=== PATIENT | female | born 1930 | race Caucasian/White ===

== ENCOUNTER → 2016-04-22 | Outpatient (CLI) | payer MEDICARE ==
[2016-04-22 09:42] LABS: Blood Urea Nitrogen 28 mg/dL (7-17); Non-African American GFR(MDRD) 52 (>60 ml/min/1.73 sqM)
--- NOTE | 2016-04-22 12:46 | CT ---
EXAMINATION TYPE: CT ChestAbdPelvis w con DATE OF EXAM: 04/22/2016 10:58 AM COMPARISON: CT chest February 14, 2016. CT cap January 16, 2015. HISTORY: Breast and Lung Cancer. History of left-sided mastectomy and COPD. CT DLP: 1255.50 mGycm. Automated Exposure Control for Dose Reduction was Utilized. CONTRAST: CT scan of the thorax, abdomen and pelvis is performed with oral and with IV Contrast, patient inject ed with 100 ml mL of Omnipaque 300. FINDINGS: LUNGS: There is persistent moderate size left pleural effusion. There is associated left lower lung a telectasis. There is ill-defined left hilar mass with mediastinal invasion encasing left pulmonary ar nahid as well as left lung bronchus similar to prior exam, difficult to accurately measure due to obst ructive atelectasis of the left lower lobe, measurements estimated roughly 6.0 x 3.3 cm on axial imag e 27. Scarring anteriorly in left upper lobe remains present. Additional linear scarring medially lef t upper lobe is seen. There is persistent right infrahilar scarring with mild bronchiectatic change a nd atelectatic change extending anteriorly and medially slightly less prominent versus prior. No new parenchymal nodule or mass is present. No pleural effusion is noted. MEDIASTINUM: There are no greater than 1 cm mediastinal lymph nodes. Slightly more prominent right hi lar lymph nodes and masslike consolidation is felt present near axial images 26 through 28. No cardio megaly or pericardial effusion is seen. Coronary artery calcification is redemonstrated. Moderate to large size fixed hiatal hernia is redemonstrated. OTHER: Surgical changes from left-sided mastectomy are redemonstrated. There is 1.7 x 1.5 cm mass in the right lateral slightly lower breast on axial image 37 redemonstrated felt stable. There is second medial right breast lesion measuring 2.5 x 1.7 cm on axial image 32 increased in size from prior. Th ere is 9 mm nodule inferomedially right breast more prominent versus prior study on axial image 63. LIVER/GB: Cholecystectomy clips are redemonstrated. PANCREAS: No significant abnormality is seen. SPLEEN: No significant abnormality is seen. ADRENALS: There are stable hyperdense thickening to both adrenal glands nonspecific could reflect delaney plasm redemonstrated all stable. KIDNEYS: No significant abnormality is seen. BOWEL: The oral contrast does not reach colonic level making evaluation slightly suboptimal. There is no suspicious small or large bowel dilatation. There are diverticula seen in redundant sigmoid colon . There is moderate wall thickening involving the proximal right transverse colon and the entire righ t colon. Colitis versus neoplasm at this level needs to BE considered. GENITAL ORGANS: Uterus is surgically absent or markedly atrophic in appearance. LYMPH NODES: No greater than 1cm abdominal or pelvic lymph nodes are appreciated. OSSEOUS STRUCTURES: Osseous structures are demineralized. There is marked multilevel spurring through out the thoracolumbar spine. S-shaped scoliosis is present. There is moderate joint space loss in bot h hips. OTHER: No significant additional abnormality is seen. IMPRESSION: 1. Left hilar encasing mass or neoplasm redemonstrated felt stable. There is a stable moderate-sized left pleural effusion. No new lung mass or adenopathy is noted. Hyperdense nodular thickening to bot h adrenal glands is more prominent than more remote studies from 2014, metastatic neoplastic involvem ent is suspected. 2. 3 right-sided breast lesions are present, 2 of the lesions are increased in size from prior. 3. Moderate wall thickening involving entire right colon through proximal one third of transverse col on, differential includes colitis versus neoplasm. Clinical correlation advised. Consider follow-up c olonoscopy based on clinical correlation.
--- NOTE | 2016-04-22 14:24 | NM ---
EXAMINATION TYPE: NM bone scan whole body DATE OF EXAM: 04/22/2016 1:50 PM COMPARISON: Prior nuclear medicine bone scan January 16, 2015. Same day CT CAP study. HISTORY: Breast cancer Delayed whole-body scanning was performed following the injection of 27.5 mCi Tc 99m MDP. Images acq uired 3.5 hours post injection. Spot images of the thorax abdomen and pelvis are acquired. FINDINGS: Underlying scoliosis in the spine is redemonstrated. There is new focal area of abnormal uptake invol ving left lateral lower rib believed to correlate to healing fracture on CT. No suspicious radiotrace r uptake is identified to definitively suggest ossific metastatic disease. Symmetric increase uptake at level of both knee joints is felt to reflect product of degenerative change. IMPRESSION: No convincing scintigraphic evidence of metastatic disease to the bone.
== END | disposition home or self-care (01) ==
LOC: RADCTMAIN 08:57
PROVIDERS: ATTEND Internal Medicine Hematology & Oncology
DX: C50.919 Malignant neoplasm of unspecified site of unspecified female breast (principal); J90 Pleural effusion, not elsewhere classified; E27.8 Other specified disorders of adrenal gland; K63.89 Other specified diseases of intestine
CPT/HCPCS: 82565; 84520; 71260; 74177; 36415; 78306; A9503; Q9967

== ENCOUNTER 2016-05-06 07:46 | Day surgery (SDC) | payer MEDICARE ==
[2016-05-06] MEDS ORDERED: ALPRAZolam 0.25 MG TAB PO STA (08:42)
[2016-05-06 08:43] LABS: INR 1.1 (<1.1); Prothrombin Time 10.6 sec (9.0-12.0)
[2016-05-06 08:48] VITALS: RESP 14; TEMP 97.6
--- NOTE | 2016-05-06 09:37 | US ---
Ultrasound-guided therapeutic and diagnostic thoracentesis CLINICAL HISTORY: Pleural effusion The procedure was discussed with the patient. The risks, complications, benefits, and alternatives we re discussed and any questions were answered. Informed consent was obtained. The patient was placed s upine on the ultrasound table and prepped and draped in the usual sterile fashion. All elements of maximal barrier technique were utilized. Under ultrasound guidance, access into the left pleural space was obtained, via the thoracentesis catheter system and direct ultrasound guidance . Approximately 0.5 liters of straw-colored fluid was removed. The patient was stable throughout the pr ocedure and remained stable upon discharge from Department of Radiology. IMPRESSION: Successful therapeutic and diagnostic thoracentesis under ultrasound guidance.
--- NOTE | 2016-05-06 09:43 | XR ---
EXAMINATION TYPE: XR chest 1V portable DATE OF EXAM: 05/06/2016 9:37 AM HISTORY: Status post left-sided thoracentesis COMPARISON: May 2015 TECHNIQUE: Single view of the chest is submitted. FINDINGS: Diminution in left-sided pleural effusion. No evidence for sizable pneumothorax. Chronic parenchymal changes seen bilaterally. Cardiomegaly without overt failure. Hilar and mediastinal structures are st able. IMPRESSION: 1. Status post left-sided thoracentesis without evidence for sizable pneumothorax.
[2016-05-06 10:24] VITALS: BP 108/55; PULSE 47
== END 2016-05-06 10:35 | disposition home or self-care (01) ==
LOC: RADPROMAIN 07:46
PROVIDERS: ATTEND Internal Medicine Hematology & Oncology
DX: J90 Pleural effusion, not elsewhere classified (principal)
CPT/HCPCS: 32555; 71010; 84157; 85049; 85610; 88108; 88305; 88341; 88342

== ENCOUNTER → 2016-07-08 | Outpatient (CLI) | payer MEDICARE ==
[2016-07-08 08:26] LABS: Blood Urea Nitrogen 36 mg/dL (7-17); Non-African American GFR(MDRD) 54 (>60 ml/min/1.73 sqM)
--- NOTE | 2016-07-08 10:51 | CT ---
EXAMINATION TYPE: CT ChestAbdPelvis w con DATE OF EXAM: 07/08/2016 10:23 AM COMPARISON: CT cap April 22, 2016. HISTORY: Breast cancer CT DLP: 1184 mGycm. Automated Exposure Control for Dose Reduction was Utilized. CONTRAST: CT scan of the thorax, abdomen and pelvis is performed with oral and with IV Contrast, patient inject ed with 100 ml mL of Visipaque 320. FINDINGS: LUNGS: Groundglass opacity with reticulation anteriorly left upper lobe is redemonstrated favoring sc arring. Scarlike nodules left upper lobe inferiorly on axial image 24 stable. There is persistent suspicious left hilar masslike consolidation with abrupt cut off of left-sided br onchi measuring approximately 7.8 cm anterior posterior dimension by 3.2 cm transversely on axial bobby ge 26 is stable or slightly more prominent versus prior exam. Accurate measurements are difficult as there is likely central mass with peripheral obstructing atelectatic change. There is mediastinal inv asion encasing portion of left pulmonary artery and left-sided bronchi with partial encasement of the esophagus all redemonstrated. There is persistent small left-sided pleural fluid collection or effus ion. Right lung is more hyperexpanded with apical and basilar linear scarring or atelectasis. No suspiciou s new parenchymal nodule or mass is present. MEDIASTINUM: There are no greater than 1 cm hilar or mediastinal lymph nodes. No cardiomegaly or pe ricardial effusion is seen. Coronary artery calcification is redemonstrated. OTHER: There is redemonstration of medial left breast mass measuring 2.5 x 1.8 cm on axial image 33 s table in size and appearance from prior exam. Satellite lesion just inferior to this is however incre asing in size measuring 9 x 9 mm on axial image 35. Left axillary lymph node is more prominent measur ing 1.9 x 1.7 cm on axial image 33. There is increasing size suspicious medial left chest wall lymph node anteriorly near sternum measuring 7 x 6 mm on axial image 20. There is suspicious lymph node lat erally in the right axilla or upper arm measuring 16 x 10 mm on axial image 6 that is new or more pro minent. LIVER/GB: Cholecystectomy clips are again seen. PANCREAS: No significant abnormality is seen. SPLEEN: No significant abnormality is seen. ADRENALS: Stable suspicious but nonspecific thickening to bilateral adrenal glands. KIDNEYS: No significant abnormality is seen. BOWEL: Moderate to large size hiatal hernia is redemonstrated. The oral contrast does not reach colon ic level. There are diverticula scattered throughout the colon most pronounced in the sigmoid colon. No acute diverticulitis is seen. There is no suspicious small or large bowel dilatation. GENITAL ORGANS: Uterus is surgically absent or markedly atrophic in appearance LYMPH NODES: No greater than 1cm abdominal or pelvic lymph nodes are appreciated. OSSEOUS STRUCTURES: Osseous structures are demineralized. There is S-shaped scoliosis present. There is moderate to severe degenerative changes in both hips. There is moderate to severe multilevel spurr ing. OTHER: Scattered suspicious subcentimeter subcutaneous nodules in the right lateral abdominal wall ar e redemonstrated 2 identified on axial images 71 and 73 are stable or slightly more prominent versus prior. One anterior to liver appears more prominent measuring 14 mm on long axis on current study axi al image 60. IMPRESSION: 1. Left hilar encasing mass or neoplasm redemonstrated felt stable. Persistent suspicious nodular thi ckening to both adrenal glands is stable. 2. Dominant right breast lesion stable. Additional right breast and chest lesions as well as subcutan eous abdominal lesions are felt more prominent or enlarging in size. Findings consistent with neoplas tic progression.
--- NOTE | 2016-07-08 14:18 | NM ---
EXAMINATION TYPE: NM bone scan whole body DATE OF EXAM: 07/08/2016 2:06 PM COMPARISON: Same day CT cap study. Bone scan April 22, 2016. HISTORY: Known breast cancer. Delayed whole-body scanning was performed following the injection of 27.5 mCi Tc 99m MDP. Images acq uired 3 hours post injection. Whole body images as well as spot images of the thorax abdomen and pelv is are acquired. FINDINGS: Areas of increased uptake in the skull is nonspecific. There is single area of abnormal uptake involv ing left lateral lower rib corresponds to healing or healed fracture on CT. Area of abnormal uptake a nterior neck near cervicothoracic junction is uncertain etiology. Mild uptake in bilateral knee joints is consistent with product of degenerative change. Lucency from metallic prosthesis is redemonstrated. Underlying scoliosis is present. IMPRESSION: Increase uptake throughout the calvarium is noted, not typical pattern related to metastatic disease. Consider CT correlation. No convincing evidence of metastatic disease to the bone otherwise.
== END ==
LOC: RADCTMAIN 07:35
PROVIDERS: ATTEND Internal Medicine Hematology & Oncology
DX: C50.412 Malignant neoplasm of upper-outer quadrant of left female breast (principal); R91.8 Other nonspecific abnormal finding of lung field
CPT/HCPCS: 82565; 84520; 71260; 74177; 36415; 78306; A9503; Q9967

== ENCOUNTER → 2016-10-09 | Outpatient (CLI) | payer MEDICARE ==
--- NOTE | 2016-10-09 11:17 | XR ---
EXAMINATION TYPE: XR shoulder complete LT DATE OF EXAM: 10/09/2016 CLINICAL HISTORY: pain COMPARISON: NONE TECHNIQUE: Three views of the left shoulder are obtained. FINDINGS: There is no acute fracture/dislocation evident. The acromioclavicular and glenohumeral iva int spaces appear moderately narrowed. The visualized ribs are intact and unremarkable. Small left b asilar pleural effusion. IMPRESSION: 1. There is no acute fracture or dislocation. ICD 10 NO FRACTURE, INITIAL EVALUATION
== END | disposition home or self-care (01) ==
LOC: RADXRMAIN 10:47
PROVIDERS: ATTEND Internal Medicine Critical Care Medicine
DX: C50.919 Malignant neoplasm of unspecified site of unspecified female breast (principal)

== ENCOUNTER 2017-03-01 12:22 | Emergency (ER) | payer MEDICARE ==
--- NOTE | 2017-03-01 13:04 | ED ---
Fall HPI - General Chief Complaint: Fall Stated Complaint: Fall-wrist Injury Time Seen by Provider: 03/01/17 12:53 Source: patient, family Mode of arrival: wheelchair - History of Present Illness Initial Comments: This 86-year-old female who was trying a couple coffee without use of her walker or cane when she tripped and fell on her outstretched right upper extremity. She complains right wrist pain. She had no head neck back pain or other extremity injury. She was able ambulate with assistance afterwards. EMS was called and they did splint her right wrist extensor right wrist pain. She is right-hand dominant. No other complaints at this time. Pain is mild to moderate in intensity. She does not require or want any pain medication at this time. MD Complaint: fall - Related Data Home Medications Medication Instructions Recorded Confirmed Albuterol Nebulized [Ventolin 1 vial INHALATION RT-BID 04/21/15 03/01/17 Nebulized] Albuterol Sulfate [Ventolin HFA] 2 puff INHALATION DIRECTED PRN 04/21/15 Allopurinol [Allopurinol] 300 mg PO DAILY 04/21/15 03/01/17 Atorvastatin [Lipitor] 20 mg PO HS 04/21/15 03/01/17 Cholecalciferol [Vitamin D3] 1,000 unit PO BID 04/21/15 03/01/17 Furosemide [Furosemide] 40 mg PO BID 04/21/15 03/01/17 Losartan Potassium [Losartan 25 mg PO DAILY 04/21/15 03/01/17 Potassium] Metolazone [Metolazone] 2.5 mg PO Q48H 04/21/15 03/01/17 Nitroglycerin Sl Tabs [Nitrostat] 0.4 mg PO DIRECTED PRN 04/21/15 03/01/17 Omeprazole [Omeprazole] 20 mg PO DAILY 04/21/15 03/01/17 metFORMIN HCL [metFORMIN HCL] 500 mg PO AC-SUPPER 04/21/15 03/01/17 sitaGLIPtin [Januvia] 100 mg PO DAILY 04/21/15 03/01/17 Alendronate Sodium [Fosamax] 70 mg PO Q7D 03/01/17 03/01/17 Beta-Carotene 15 mg PO BID 03/01/17 03/01/17 Calcium Carbonate/Vitamin D3 1 tab PO DAILY 03/01/17 03/01/17 [Calcium 600-Vit D3 200 Tablet] Nebivolol [Bystolic] 5 mg PO BID 03/01/17 03/01/17 Palbociclib [Ibrance] 125 mg PO DIRECTED 03/01/17 03/01/17 Potassium Chloride ER [K-Dur 10] 10 meq PO BID 03/01/17 03/01/17 Allergies Allergy/AdvReac Type Severity Reaction Status Date / Time Penicillins Allergy Rash/Hives Verified 03/01/17 13:27 Review of Systems ROS Statement: Those systems with pertinent positive or pertinent negative responses have been documented in the HPI. ROS Other: All systems not noted in ROS Statement are negative. Past Medical History Past Medical History: Cancer, Heart Failure, COPD, Diabetes Mellitus, GERD/ Reflux, Hyperlipidemia, Hypertension, Osteoarthritis (OA), Sleep Apnea/CPAP/ BIPAP Additional Past Medical History / Comment(s): O2 24 HRS A DAY, 2.5-3L RECENT HEMOPTOSIS, GOUT, LUNG CANCER, BREAST CA History of Any Multi-Drug Resistant Organisms: None Reported Past Surgical History: Section, Cholecystectomy, Hysterectomy, Joint Replacement, Tonsillectomy Additional Past Surgical History / Comment(s): MASTECTOMY LEFT SIDE, JAMEL KNEE REPLACEMENT, PREVIOUS BRONCHOSCOPY Past Anesthesia/Blood Transfusion Reactions: No Reported Reaction Past Psychological History: No Psychological Hx Reported Smoking Status: Former smoker Past Alcohol Use History: Rare Past Drug Use History: None Reported - Past Family History Mother Family Medical History: Cancer General Exam - General Exam Comments Initial Comments: This is a well-developed well-nourished awake alert oriented 3 female she does demonstrate a Cornelius Coma Scale of 15 Limitations: physical limitation General appearance: alert, in no apparent distress Head exam: Present: atraumatic, normocephalic, normal inspection Eye exam: Present: normal appearance, PERRL, EOMI. Absent: scleral icterus, conjunctival injection, periorbital swelling ENT exam: Present: normal exam, mucous membranes moist Neck exam: Present: normal inspection. Absent: tenderness, meningismus, lymphadenopathy Respiratory exam: Present: normal lung sounds bilaterally. Absent: respiratory distress, wheezes, rales, rhonchi, stridor Cardiovascular Exam: Present: regular rate, normal rhythm, normal heart sounds. Absent: systolic murmur, diastolic murmur, rubs, gallop, clicks GI/Abdominal exam: Present: soft, normal bowel sounds. Absent: distended, tenderness, guarding, rebound, rigid Extremities exam: Present: tenderness, normal capillary refill, other ( Tenderness palpation of the right distal radius and ulna no definite deformity no tenderness palpation of the fingers with good capillary refill. No pulse deficits noted +2 are +2 radial pulses bilaterally. There is mild times palpation over the proximal radius ulna but no deformity no tenderness over the elbow humerus or shoulder on the right.). Absent: full ROM, pedal edema, joint swelling, calf tenderness Back exam: Present: normal inspection Neurological exam: Present: alert, oriented X3, CN II-XII intact Psychiatric exam: Present: normal affect, normal mood Skin exam: Present: warm, dry, intact, normal color. Absent: rash Course Vital Signs 03/01/17 12:40 Temperature 97.3 F L Pulse Rate 67 Respiratory 17 Rate Blood Pressure 116/50 O2 Sat by Pulse 98 Oximetry Procedures - Procedures Initial comment: I did place a short arm 4 x 30 for splint on the patient. It was good neurovascular exam afterwards. Patient did tolerate this well. Medical Decision Making - Medical Decision Making Patient is having a distal radius fracture on the right. She was placed and I full R OCL splint. She will follow-up with orthopedics in 2 days. He did tolerate the splinting procedure well I did discuss this with her and her family member who is present. Additionally patient states she has Aleve that she uses at home for pain and does not need any other pain medication at this time. - Radiology Data Radiology results: report reviewed (I did review the imaging and report or is evidence of distal radius fracture.), image reviewed Disposition Clinical Impression: Fall, Distal radius fracture, right Disposition: HOME SELF-CARE Condition: Good Instructions: Fall Prevention for Older Adults (ED), Wrist Fracture in Adults ( ED) Referrals: Saleem Roldan MD [Primary Care Provider] - 1-2 days Pedro Durand MD [STAFF PHYSICIAN] - 1-2 days
--- NOTE | 2017-03-01 14:11 | XR ---
EXAMINATION TYPE: 2 views right forearm. 3 views right wrist. DATE OF EXAM: 03/01/2017 COMPARISON: NONE HISTORY: 86-year-old female with pain after fall today FINDINGS: The elbow articulation appears grossly intact. There is some soft tissue swelling along the dorsal as pect of the midforearm. No acute fracture of the proximal to mid radius or ulna is seen. However, there is a impacted, mildly angulated and mildly displaced Colles' fracture of the distal ra dial metaphysis. Additional nondisplaced fracture of the ulnar styloid process. There is secondary po sitive ulnar variance. Associated soft tissue swelling. Diffuse osteopenia. Advanced degenerative bashir nges at the base of the thumb. IMPRESSION: Impacted, slightly angulated Colles' fracture. Additional nondisplaced fracture of the ulnar styloid process.
[2017-03-01 14:47] VITALS: BP 135/74; PULSE 74; RESP 16; TEMP 97.9
== END 2017-03-01 14:46 | disposition home or self-care (01) ==
LOC: EC 12:22
DX: S52.501A Unspecified fracture of the lower end of right radius, initial encounter for closed fracture (principal); R40.2412 Glasgow coma scale score 13-15, at arrival to emergency department; E78.5 Hyperlipidemia, unspecified; I11.0 Hypertensive heart disease with heart failure; I50.9 Heart failure, unspecified; E11.9 Type 2 diabetes mellitus without complications; J44.9 Chronic obstructive pulmonary disease, unspecified; K21.9 Gastro-esophageal reflux disease without esophagitis; Z87.891 Personal history of nicotine dependence; Z79.84 Long term (current) use of oral hypoglycemic drugs; Z79.899 Other long term (current) drug therapy; Z88.0 Allergy status to penicillin; Z85.3 Personal history of malignant neoplasm of breast; Z90.12 Acquired absence of left breast and nipple; W01.0XXA Fall on same level from slipping, tripping and stumbling without subsequent striking against object, initial encounter; Y93.89 Activity, other specified; Y92.000 Kitchen of unspecified non-institutional (private) residence as the place of occurrence of the external cause
CPT/HCPCS: 29125; 99283

== ENCOUNTER → 2017-05-07 | Outpatient (CLI) | payer MEDICARE ==
[2017-05-07 11:58] LABS: Anion Gap 10 mmol/L; Blood Urea Nitrogen 24 mg/dL (7-17); Carbon Dioxide 36 mmol/L (22-30); Chloride 89 mmol/L (98-107); Potassium 3.5 mmol/L (3.5-5.1); Sodium 135 mmol/L (137-145)
[2017-05-07 17:24] LABS: Hemoglobin A1C 5.7 % (4.0-6.0)
== END | disposition home or self-care (01) ==
LOC: LABWHC1 11:16
PROVIDERS: ATTEND Internal Medicine
DX: C34.90 Malignant neoplasm of unspecified part of unspecified bronchus or lung (principal); E78.5 Hyperlipidemia, unspecified; E11.9 Type 2 diabetes mellitus without complications; I10 Essential (primary) hypertension
CPT/HCPCS: 36415; 80051; 82565; 83036; 84520

== ENCOUNTER → 2017-06-23 | Outpatient (CLI) | payer MEDICARE ==
[2017-06-23 17:33] LABS: Anisocytosis Slight; HCT 28.3 % (34.0-46.0); HGB 9.2 gm/dL (11.4-16.0); Hypochromasia Slight; MCH 36.6 pg (25.0-35.0); MCHC 32.7 g/dL (31.0-37.0); Macrocytosis Marked; Mean Platelet Volume 8.6; Platelet Count 144 k/uL (150-450); RBC 2.53 m/uL (3.80-5.40); RDW 18.3 % (11.5-15.5); WBC 2.9 k/uL (3.8-10.6)
[2017-06-23 17:52] LABS: Albumin 3.7 g/dL (3.5-5.0); Calcium 9.3 mg/dL (8.4-10.2); Total Bilirubin 0.6 mg/dL (0.2-1.3); Total Protein 6.6 g/dL (6.3-8.2)
[2017-06-24 02:16] LABS: CA27.29 Breast Ca Marker 68.5 U/mL (0.0-38.5)
--- NOTE | 2017-06-24 09:19 | CT ---
EXAMINATION TYPE: CT thor lumbar spine wo con DATE OF EXAM: 06/23/2017 COMPARISON: CT chest abdomen and pelvis July 08, 2016 HISTORY: Right hip pain with weakness per patient. Thoracic spine pain and lumbago per order. CT DLP: 502.9 mGycm Automated exposure control for dose reduction was used. FINDINGS: Osseous structures are demineralized. There is exaggerated thoracic kyphosis and lumbar lordosis rede monstrated. Lucent areas anteriorly with large bridging osteophytes in the upper to midthoracic spine are redemonstrated. There is slight S-shaped scoliosis on coronal images redemonstrated. No acute fr acture or dislocation is seen. Vertebral body heights are fairly well preserved. Moderate to advanced disc space narrowing L4-L5 level is redemonstrated. Spinal canal is fairly well-maintained on axial and sagittal images. Multilevel posterior spinous process hypertrophy is again seen. Review of axial images shows persistent small left pleural effusion and associated left basilar conso lidation and/or atelectasis. There is left-sided volume loss with mediastinal shift. There is redemon stration of moderate to large size hiatal hernia. There is fairly moderate calcified plaque of aorta extending into iliac branch vessels redemonstrated. There is moderate to severe facet arthropathy low er lumbar levels. This causes some spinal canal effacement. No large disc herniation is evident. Slig ht nodular thickening to both adrenal glands is unchanged. Cholecystectomy clips are redemonstrated. IMPRESSION: ABOVE. NO ACUTE FRACTURE OR DISLOCATION IS SEEN. NO SIGNIFICANT CHANGE FROM PRIOR CT.
== END | disposition home or self-care (01) ==
LOC: RADCTMAIN 16:38
PROVIDERS: ATTEND Internal Medicine Hematology & Oncology
DX: M40.294 Other kyphosis, thoracic region (principal); M25.78 Osteophyte, vertebrae; M48.061 Spinal stenosis, lumbar region without neurogenic claudication; M46.86 Other specified inflammatory spondylopathies, lumbar region; M40.46 Postural lordosis, lumbar region; C50.412 Malignant neoplasm of upper-outer quadrant of left female breast; Z88.0 Allergy status to penicillin
CPT/HCPCS: 36415; 72128; 72131; 80053; 85027; 86300

== ENCOUNTER → 2017-06-30 | Outpatient (CLI) | payer MEDICARE ==
[2017-06-30 11:43] LABS: T4, Free (Free Thyroxine) 1.55 ng/dL (0.78-2.19)
== END | disposition home or self-care (01) ==
LOC: LABWHC1 10:39
PROVIDERS: ATTEND Psychiatry & Neurology Neurology
DX: F03.90 Unspecified dementia, unspecified severity, without behavioral disturbance, psychotic disturbance, mood disturbance, and anxiety (principal)
CPT/HCPCS: 36415; 82565; 82607; 84439; 84443; 84481; 84520

== ENCOUNTER → 2017-09-11 | Outpatient (CLI) | payer MEDICARE ==
--- NOTE | 2017-09-11 18:09 | CT ---
EXAMINATION TYPE: CT angio chest DATE OF EXAM: 09/11/2017 5:56 PM COMPARISON: 02/11/2013 HISTORY: Shortness of breath for [address] DLP: 653 mGycm Automated exposure control for dose reduction was used. CONTRAST: CTA scan of the thorax is performed with IV Contrast, patient injected with 100 mL of Isovue 370, pul monary embolism protocol. There are 3-D post processed images.. FINDINGS: There is atelectasis and infiltrate at the left lung base. There is bilateral pleural effusion. There is a large hiatal hernia. Heart size is normal. I see no filling defects in the pulmonary arteries. 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 There is no evidence of dissection. There is no mediastinal adenopathy. IMPRESSION: NO EVIDENCE OF PULMONARY EMBOLISM. CHRONIC BILATERAL PLEURAL EFFUSIONS WHICH APPEAR INCREASED ON THE RIGHT SIDE COMPARED TO OLD EXAM. THERE IS CHRONIC LEFT LOWER LOBE INFILTRATE AND ATELECTASIS THAT IS SLIGHTLY WORSE THAN OLD EXAM. LARGE HIATAL HERNIA. THERE IS CHRONIC SUBCARINAL DENSITY ABOVE THE HIATAL HERNIA THAT MEASURES 3.5 X 2.5 CM. THIS IS OF UN CERTAIN SIGNIFICANCE AND IS ALSO PRESENT TO A SMALLER EXTENT ON THE OLD CT SCAN.
== END | disposition home or self-care (01) ==
LOC: RADCTMAIN 16:37
PROVIDERS: ATTEND Internal Medicine Critical Care Medicine
DX: J90 Pleural effusion, not elsewhere classified (principal); R91.8 Other nonspecific abnormal finding of lung field; J98.11 Atelectasis; J96.21 Acute and chronic respiratory failure with hypoxia
CPT/HCPCS: 82565; 84520; 71275; 36415; Q9967

== ENCOUNTER 2018-02-19 10:56 | Inpatient (IN) | payer MEDICARE ==
[2018-02-19] MEDS ORDERED: IPRATROPIUM-ALBUTEROL 3 ML NEB INHALATION STA (11:01)
--- NOTE | 2018-02-19 11:11 | ED ---
SOB HPI - General Chief Complaint: Shortness of Breath Stated Complaint: Difficulty Breathing Time Seen by Provider: 02/19/18 11:00 Source: patient, EMS, RN notes reviewed Mode of arrival: EMS Limitations: no limitations - History of Present Illness Initial Comments: This 87-year-old female history of metastatic breast cancer to the lung who states she has been having shortness of breath or past several weeks menstrual very bad last 1 or 2 days. She was noted to be 80% on 4 L of oxygen when EMS arrived. She had to the low 90s after oxygen was applied. She denies any overt fevers chills sweats chest pain cough or other symptoms at this time. Per EMS she was incontinent of urine. MD Complaint: shortness of breath - Related Data Home Medications Medication Instructions Recorded Confirmed Albuterol Sulfate [Ventolin HFA] 2 puff INHALATION RT-Q6H PRN 04/21/15 02/19/18 Allopurinol 300 mg PO DAILY 04/21/15 02/19/18 Atorvastatin [Lipitor] 20 mg PO HS 04/21/15 02/19/18 Metolazone 2.5 mg PO Q48H 04/21/15 02/19/18 Nitroglycerin Sl Tabs [Nitrostat] 0.4 mg PO Q5M PRN 04/21/15 02/19/18 Omeprazole 20 mg PO DAILY 04/21/15 02/19/18 sitaGLIPtin [Januvia] 100 mg PO DAILY 04/21/15 02/19/18 Alendronate Sodium [Fosamax] 70 mg PO MO 03/01/17 02/19/18 Naproxen Sodium [Aleve] 220 mg PO BID 02/19/18 02/19/18 Palbociclib [Ibrance] 125 mg PO Q21D 02/19/18 02/19/18 Previous Rx's Medication Instructions Recorded Budesonide-Formot 160-4.5 Mcg 2 puff INHALATION RT-BID puff 04/09/17 [Symbicort 160-4.5 Mcg Inhaler] Furosemide [Lasix] 40 mg PO DAILY #1 tablet 04/09/17 Ipratropium-Albuterol Nebulize 3 ml INHALATION RT-QID ampul.neb 04/09/17 [Duoneb 0.5 mg-3 mg/3 ml Soln] Allergies Allergy/AdvReac Type Severity Reaction Status Date / Time Penicillins Allergy Rash/Hives Verified 02/19/18 11:25 Review of Systems ROS Statement: Those systems with pertinent positive or pertinent negative responses have been documented in the HPI. ROS Other: All systems not noted in ROS Statement are negative. Past Medical History Past Medical History: Cancer, Chest Pain / Angina, Heart Failure, COPD, Diabetes Mellitus, GERD/Reflux, Hyperlipidemia, Hypertension, Memory Impairment , Osteoarthritis (OA), Respiratory Disorder, Sleep Apnea/CPAP/BIPAP Additional Past Medical History / Comment(s): O2 3 liters atc, GOUT, past hx of hemoptysis-LUNG CANCER, lt BREAST CA, osteoporosis,short term memory problems, past peptic ulcer disease, murmur. fell after thanksgiving -fx rt arm currently it's casteD. RIGHT PLEURAL EFFUSION. History of Any Multi-Drug Resistant Organisms: None Reported Past Surgical History: Section, Cholecystectomy, Hysterectomy, Joint Replacement, Tonsillectomy Additional Past Surgical History / Comment(s): LT BREAST BX,MASTECTOMY LEFT SIDE , JAMEL KNEE REPLACEMENT,several BRONCHOSCOPIES,PAST LAP BAND, EGD/COLONOSCOPY. RIGHT THORACENTESIS. Past Anesthesia/Blood Transfusion Reactions: No Reported Reaction Past Psychological History: No Psychological Hx Reported Smoking Status: Former smoker Past Alcohol Use History: None Reported Past Drug Use History: None Reported - Past Family History Mother Family Medical History: Cancer Additional Family Medical History / Comment(s): BREAST CANCER Father Family Medical History: No Reported History Additional Family Medical History / Comment(s): PT STATED HER DAD NEVER WENT TO . LIVED TILL HE WAS 98 YEARS OLD General Exam - General Exam Comments Initial Comments: This a well-developed well-nourished awake alert somewhat lethargic female Limitations: no limitations General appearance: alert, lethargic Head exam: Present: atraumatic, normocephalic, normal inspection Eye exam: Present: normal appearance, PERRL, EOMI. Absent: scleral icterus, conjunctival injection, periorbital swelling ENT exam: Present: mucous membranes dry Neck exam: Present: normal inspection. Absent: tenderness, meningismus, lymphadenopathy Respiratory exam: Present: decreased breath sounds Cardiovascular Exam: Present: regular rate, normal rhythm, normal heart sounds. Absent: systolic murmur, diastolic murmur, rubs, gallop, clicks GI/Abdominal exam: Present: soft, normal bowel sounds. Absent: distended, tenderness, guarding, rebound, rigid Extremities exam: Present: normal inspection, full ROM, normal capillary refill. Absent: tenderness, pedal edema, joint swelling, calf tenderness Back exam: Present: normal inspection Neurological exam: Present: alert, oriented X3, CN II-XII intact Psychiatric exam: Present: normal affect, normal mood Skin exam: Present: warm, dry, intact, normal color. Absent: rash Course Vital Signs 02/19/18 02/19/18 02/19/18 10:59 11:30 11:44 Temperature 98.0 F Pulse Rate 63 59 L Respiratory 20 24 Rate Blood Pressure 130/62 O2 Sat by Pulse 100 Oximetry 02/19/18 02/19/18 02/19/18 11:54 12:30 13:00 Temperature Pulse Rate 56 L 57 L 63 Respiratory 18 16 Rate Blood Pressure 130/62 96/53 O2 Sat by Pulse 100 98 Oximetry 02/19/18 02/19/18 02/19/18 13:30 14:00 14:30 Temperature Pulse Rate 58 L 65 67 Respiratory 18 15 19 Rate Blood Pressure 110/84 120/66 126/56 O2 Sat by Pulse 95 Oximetry - Reevaluation(s) Reevaluation #1: 02/19/18 14:44 The patient gets some relief from the updraft. I did discuss the findings of her and her family members. Medical Decision Making - Medical Decision Making Reevaluation patient reveals some difficulty breathing even after the treatment rendered. Patient will be admitted I did discuss case with family members. - Lab Data Result diagrams: 02/19/18 11:43 02/19/18 11:43 Lab Results 02/19/18 02/19/18 02/19/18 Range/Units 11:43 11:43 11:43 WBC 1.5 L (3.8-10.6) k/uL RBC 2.46 L (3.80-5.40) m/uL Hgb 9.6 L (11.4-16.0) gm/dL Hct 28.4 L (34.0-46.0) % MCV 115.4 H (80.0-100.0) fL MCH 39.1 H (25.0-35.0) pg MCHC 33.9 (31.0-37.0) g/dL RDW 17.2 H (11.5-15.5) % Plt Count 100 L (150-450) k/uL Neutrophils % 52 % Lymphocytes % 31 % Monocytes % 8 % Eosinophils % 4 % Basophils % 0 % Neutrophils # 0.8 L (1.3-7.7) k/uL Lymphocytes # 0.5 L (1.0-4.8) k/uL Monocytes # 0.1 (0-1.0) k/uL Eosinophils # 0.1 (0-0.7) k/uL Basophils # 0.0 (0-0.2) k/uL Manual Slide Review Performed Anisocytosis Slight Macrocytosis Marked PT (9.0-12.0) sec INR (<1.2) APTT (22.0-30.0) sec Sodium 139 (137-145) mmol/L Potassium 4.2 (3.5-5.1) mmol/L Chloride 96 L (98-107) mmol/L Carbon Dioxide 34 H (22-30) mmol/L Anion Gap 9 mmol/L BUN 33 H (7-17) mg/dL Creatinine 1.21 H (0.52-1.04) mg/dL Est GFR (CKD-EPI)AfAm 47 (>60 ml/min/1.73 sqM) Est GFR (CKD-EPI)NonAf 41 (>60 ml/min/1.73 sqM) Glucose 97 (74-99) mg/dL Calcium 9.8 (8.4-10.2) mg/dL Magnesium 1.8 (1.6-2.3) mg/dL Total Bilirubin 0.9 (0.2-1.3) mg/dL AST 29 (14-36) U/L ALT 19 (9-52) U/L Alkaline Phosphatase 109 (38-126) U/L Total Creatine Kinase 103 (30-135) U/L CK-MB (CK-2) 0.4 (0.0-2.4) ng/mL CK-MB (CK-2) Rel Index 0.4 Troponin I <0.012 (0.000-0.034) ng/mL NT-Pro-B Natriuret Pep pg/mL Total Protein 6.9 (6.3-8.2) g/dL Albumin 3.9 (3.5-5.0) g/dL 02/19/18 02/19/18 Range/Units 11:43 13:30 WBC (3.8-10.6) k/uL RBC (3.80-5.40) m/uL Hgb (11.4-16.0) gm/dL Hct (34.0-46.0) % MCV (80.0-100.0) fL MCH (25.0-35.0) pg MCHC (31.0-37.0) g/dL RDW (11.5-15.5) % Plt Count (150-450) k/uL Neutrophils % % Lymphocytes % % Monocytes % % Eosinophils % % Basophils % % Neutrophils # (1.3-7.7) k/uL Lymphocytes # (1.0-4.8) k/uL Monocytes # (0-1.0) k/uL Eosinophils # (0-0.7) k/uL Basophils # (0-0.2) k/uL Manual Slide Review Anisocytosis Macrocytosis PT 9.7 (9.0-12.0) sec INR 1.0 (<1.2) APTT 23.1 (22.0-30.0) sec Sodium (137-145) mmol/L Potassium (3.5-5.1) mmol/L Chloride (98-107) mmol/L Carbon Dioxide (22-30) mmol/L Anion Gap mmol/L BUN (7-17) mg/dL Creatinine (0.52-1.04) mg/dL Est GFR (CKD-EPI)AfAm (>60 ml/min/1.73 sqM) Est GFR (CKD-EPI)NonAf (>60 ml/min/1.73 sqM) Glucose (74-99) mg/dL Calcium (8.4-10.2) mg/dL Magnesium (1.6-2.3) mg/dL Total Bilirubin (0.2-1.3) mg/dL AST (14-36) U/L ALT (9-52) U/L Alkaline Phosphatase (38-126) U/L Total Creatine Kinase (30-135) U/L CK-MB (CK-2) (0.0-2.4) ng/mL CK-MB (CK-2) Rel Index Troponin I (0.000-0.034) ng/mL NT-Pro-B Natriuret Pep 812 pg/mL Total Protein (6.3-8.2) g/dL Albumin (3.5-5.0) g/dL - EKG Data -: EKG Interpreted by Me EKG shows normal: sinus rhythm (Sinus rhythm with a first-degree AV block PVCs noted rate was 63. Interval to 40 QRS duration 96 QT since QTC 434/444) - Radiology Data Radiology results: report reviewed (I did review the imaging and report evidence a left pleural effusion compressive atelectasis.), image reviewed Disposition Clinical Impression: Acute exacerbation of chronic obstructive airways disease, Pleural effusion, Metastatic breast cancer Disposition: ADMITTED IP TO THIS HOSP Condition: Stable Referrals: Saleem Roldan MD [Primary Care Provider] - 1-2 days
[2018-02-19 12:27] LABS: Anisocytosis Slight; Basophils % (A) 0 %; Eosinophils # (A) 0.1 k/uL (0-0.7); Eosinophils % (A) 4 %; HCT 28.4 % (34.0-46.0); HGB 9.6 gm/dL (11.4-16.0); Lymphocytes # (A) 0.5 k/uL (1.0-4.8); Lymphocytes % (A) 31 %; MCH 39.1 pg (25.0-35.0); MCHC 33.9 g/dL (31.0-37.0); MCV 115.4 fL (80.0-100.0); Macrocytosis Marked; Monocytes # (A) 0.1 k/uL (0-1.0); Monocytes % (A) 8 %; Neutrophils # (A) 0.8 k/uL (1.3-7.7); Neutrophils % (A) 52 %; Platelet Count 100 k/uL (150-450); RBC 2.46 m/uL (3.80-5.40); RDW 17.2 % (11.5-15.5); WBC 1.5 k/uL (3.8-10.6)
[2018-02-19 12:34] LABS: Albumin 3.9 g/dL (3.5-5.0); Calcium 9.8 mg/dL (8.4-10.2); Magnesium 1.8 mg/dL (1.6-2.3); Potassium 4.2 mmol/L (3.5-5.1); Total Bilirubin 0.9 mg/dL (0.2-1.3); Total Protein 6.9 g/dL (6.3-8.2)
[2018-02-19 12:45] LABS: Creatine Kinase 103 U/L (30-135)
[2018-02-19 12:59] LABS: Creatine Kinase MB 0.4 ng/mL (0.0-2.4); Troponin I <0.012 ng/mL (0.000-0.034)
--- NOTE | 2018-02-19 13:02 | XR ---
EXAMINATION TYPE: XR chest 2V DATE OF EXAM: 02/19/2018 COMPARISON: NONE HISTORY: Shortness of breath with COPD. TECHNIQUE: Frontal and lateral views of the chest are obtained. FINDINGS: There is moderate left pleural effusion appearing similar in volume to the prior of 2017. There is associated left basilar airspace disease. Biapical lucency suggests underlying COPD. M oderate multilevel degenerative changes of the spine, acromioclavicular joints, and glenohumeral join ts are present. Moderate to large hiatal hernia is again seen. IMPRESSION: Persistent moderate left pleural effusion and left-sided airspace disease, likely compre ssive atelectasis.
[2018-02-19 13:46] LABS: Partial Thromboplastin Time 23.1 sec (22.0-30.0); Prothrombin Time 9.7 sec (9.0-12.0)
[2018-02-19] MEDS ORDERED: methylPREDNISolone SOD SUCCI 125 MG/2 ML VIAL IV STA (14:47)
[2018-02-19] MEDS ORDERED: NITROGLYCERIN SL TABS 0.4 MG TAB SUBLINGUAL PRN (14:50)
[2018-02-19] MEDS ORDERED: PALBOCICLIB 125 MG PO SCH (15:00)
[2018-02-19] MEDS: IPRATROPIUM-ALBUTEROL 3 ML NEB INHALATION SCH ×3 (15:48→23:01)
[2018-02-19] MEDS ORDERED: methylPREDNISolone SOD SUCCI 125 MG/2 ML VIAL IV SCH (18:00)
[2018-02-19] MEDS: SODIUM CHLORIDE 0.9% 1,000 ML IV SCH (18:10)
[2018-02-19 19:17] VITALS: BMI 31.1
[2018-02-19 20:12] LABS: Glucose,Whole Blood 295 mg/dL (75-99)
[2018-02-19] MEDS: INSULIN ASPART 100 UNIT/ML 1 ML 10 ML VIAL SQ SCH (20:25)
[2018-02-19] MEDS: ATORVASTATIN 20 MG TAB PO SCH (20:26)
[2018-02-19] MEDS: SYMBICORT 160-4.5 MCG INHALER INHALATION SCH (20:38)
[2018-02-19] MEDS ORDERED: NAPROXEN 250 MG TAB PO PRN (21:00)
[2018-02-20] MEDS: methylPREDNISolone SOD SUCCI 125 MG/2 ML VIAL IV SCH ×3 (01:47→16:35)
[2018-02-20] MEDS: IPRATROPIUM-ALBUTEROL 3 ML NEB INHALATION SCH ×5 (03:26→20:40)
[2018-02-20 07:17] LABS: Glucose,Whole Blood 225 mg/dL (75-99)
[2018-02-20] MEDS: INSULIN ASPART 100 UNIT/ML 1 ML 10 ML VIAL SQ SCH ×4 (07:56→22:09)
--- NOTE | 2018-02-20 07:57 | P.CONS ---
<Jennifer Arthur - Last Filed: 02/20/18 22:05> History of Present Illness - Reason for Consult Consult date: 02/20/18 Metastatic Breast Cancer Requesting physician: Clifford Jones - Chief Complaint SOB - History of Present Illness Ms Earl is a pleasant WF, initially seen in consult at [facility] on 06/16/13. She had been having progressive SOB since 03/19, and had then developed hemoptysis leading to this admission. A bronchoscpy revealed a left mainstem endobronchial tumor with narrowing. The biopsy was consistent with a breast primary, with initial non-diagnostic stains revealing ER positivity. Formal ER/SC and HER 2 Cinthya testing was sent for, and was pendng at the time of discharge. The pt had had a h/o breast cancer, infiltrating ductal, ER/SC positive, Her 2 Cinthya 2+ by IHC, but negative by FISH, diagnosed in 2010. She had a lumpectomy, and then a mastectomy due to positive margins, with SN biopsy. It was a T2, N0 tumor, and the pt did not have any adjuvant therapy. The biopsy from the lung was proven to be recurrence of her breast ca. She was started on Anastrozole at discharge, and continued on that at her 1st OV visit. She had had trouble swallowing and had a ba swallow and then an EGD on 08/02/13. No major abnormality was found. Her swallowing did improve with small portions. However she went to the ER on 09/04/13 with inability to swallow, and had a piece of meat, which was stuck, removed endoscopically. Her SOB is stable. She continues on home O2, but she had been trying to stay off it for as long as possible. However that seemed to lead to more symptoms, and she is now mostly using it ATC. In 07/20, her Ca++ was increased to 2/day due to drop in bone density. She was started on Fosamax in 07/21 due to progressive osteopenia. She was coughing up blood in 04/22, leading to a bronchoscopy by Dr Cabrera on 04/24/15. This revealed mucosal irregularity in the distal left mainstem bronchus. Biopsies were negative for cancer. She improved with treatment for bronchitis. Her CT scan in 02/20 showed increase in size of her lung mass. Bronchoscopy was done on 03/06/16, showing mucosal irregularities in the distal left mainstem bronchus. However BAL and biopsies were negative. Ct was reviewed personally with Dr Cabrera, and the case discussed. In retrospect, the appearance appeared to be mostly stable. Her tumor markers in 02/20 did show some increase. Restaging CT and bone scan were done on 04/22/16. This revealed a pleural effusion, stable left lung mass, and possible slight progression in rt breast masses and adrenal masses. She had a thoracentesis on 05/06/16, with cytology negative, though protein was in the exudate range. CT in 07/22 showed stable lung and adrenal lesion, but possible progression in the breast and SQ tissues. Tumor markers also showed some progression. She was changed to Ibrance and Faslodex in early 08/21. She started a new cycle on 04/03/17, but was admitted the day after with pneumonia. [facility], and came back home on . She therefore did not take any Ibrance after D 1 in late 04/03, but resumed it , and Faslodex after returning home. She denied any f/c/n/v/new LAD. She accidentally fell and broke her wrist on 03/01/17, treated with casting. she is c/o persistent mid back pain since 04/24. CT of the spine showed extensive DJD. She was noted to have diminished recall in 07/23, with CT brain showing no evidence of mets. 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 Ms. Beltran Breast Cancer has been stable on Ibrance and Faslodex for close to a year. She was seen in the office this week, this was her week off of ibrance and was suppose to start next cycle today, Friday02/20/18, although because of her cytopenias (worsening from previous cycles) she was advised to be re- evaluated and have her CBC rechecked next week Friday in the office prior to starting next cycle. SHe now presents to Emergency with increased SOB. Her Neutrophils 0.8. Review of Systems A 14 point review of systems assessed and completed and all negative except HPI Past Medical History Past Medical History: Cancer, Chest Pain / Angina, Heart Failure, COPD, Diabetes Mellitus, GERD/Reflux, Hyperlipidemia, Hypertension, Memory Impairment , Osteoarthritis (OA), Respiratory Disorder, Sleep Apnea/CPAP/BIPAP Additional Past Medical History / Comment(s): O2 3 liters atc, GOUT, past hx of hemoptysis-LUNG CANCER, lt BREAST CA, osteoporosis,short term memory problems, past peptic ulcer disease, murmur. fell after thanksgiving -fx rt arm currently it's casteD. RIGHT PLEURAL EFFUSION. History of Any Multi-Drug Resistant Organisms: None Reported Past Surgical History: Section, Cholecystectomy, Hysterectomy, Joint Replacement, Tonsillectomy Additional Past Surgical History / Comment(s): LT BREAST BX,MASTECTOMY LEFT SIDE , JAMEL KNEE REPLACEMENT,several BRONCHOSCOPIES,PAST LAP BAND, EGD/COLONOSCOPY. RIGHT THORACENTESIS. Past Anesthesia/Blood Transfusion Reactions: No Reported Reaction Past Psychological History: No Psychological Hx Reported Additional Psychological History / Comment(s): PT'S SON LIVES WITH PT. PT USES CANE OR WALKER WHEN UP. ALSO HAS HOME 02 [address] LIT[address] N/C, CPAP MACHINE. NO HOME CARE SERVICES. Smoking Status: Former smoker Past Alcohol Use History: None Reported Additional Past Alcohol Use History / Comment(s): SMOKED FOR A YEAR AGE 26-25, Past Drug Use History: None Reported - Past Family History Mother Family Medical History: Cancer Additional Family Medical History / Comment(s): BREAST CANCER Father Family Medical History: No Reported History Additional Family Medical History / Comment(s): PT STATED HER DAD NEVER WENT TO . LIVED TILL HE WAS 98 YEARS OLD Medications and Allergies Home Medications Medication Instructions Recorded Confirmed Type Albuterol Sulfate [Ventolin HFA] 2 puff INHALATION RT-Q6H PRN 04/21/15 02/19/18 History Allopurinol 300 mg PO DAILY 04/21/15 02/19/18 History Atorvastatin [Lipitor] 20 mg PO HS 04/21/15 02/19/18 History Metolazone 2.5 mg PO Q48H 04/21/15 02/19/18 History Nitroglycerin Sl Tabs [Nitrostat] 0.4 mg PO Q5M PRN 04/21/15 02/19/18 History Omeprazole 20 mg PO DAILY 04/21/15 02/19/18 History sitaGLIPtin [Januvia] 100 mg PO DAILY 04/21/15 02/19/18 History Alendronate Sodium [Fosamax] 70 mg PO MO 03/01/17 02/19/18 History Budesonide-Formot 160-4.5 Mcg 2 puff INHALATION RT-BID puff 04/09/17 02/19/18 Rx [Symbicort 160-4.5 Mcg Inhaler] Furosemide [Lasix] 40 mg PO DAILY #1 tablet 04/09/17 02/19/18 Rx Ipratropium-Albuterol Nebulize 3 ml INHALATION RT-QID ampul.neb 04/09/17 Rx [Duoneb 0.5 mg-3 mg/3 ml Soln] Naproxen Sodium [Aleve] 220 mg PO BID 02/19/18 02/19/18 History Palbociclib [Ibrance] 125 mg PO Q21D 02/19/18 02/19/18 History predniSONE See Taper PO DAILY #15 tab 02/22/18 Rx Allergies Allergy/AdvReac Type Severity Reaction Status Date / Time Penicillins Allergy Rash/Hives Verified 02/19/18 11:25 Physical Exam Vitals: Vital Signs Temp Pulse Pulse Resp BP BP Pulse Ox 02/20/18 05:00 98 F 71 18 119/56 99 02/20/18 03:37 72 02/20/18 03:29 97 02/20/18 03:28 70 02/19/18 23:17 74 02/19/18 23:04 72 02/19/18 22:18 18 02/19/18 21:09 97 02/19/18 21:08 74 02/19/18 20:53 68 02/19/18 20:15 98.6 F 74 16 105/62 92 L 02/19/18 18:20 94 L 02/19/18 17:03 98 F 72 18 140/72 88 L 02/19/18 16:30 70 18 124/65 02/19/18 16:00 61 129/67 100 02/19/18 15:57 64 02/19/18 15:48 60 02/19/18 15:30 59 L 15 127/81 97 02/19/18 15:00 64 18 125/61 02/19/18 14:30 67 19 126/56 95 02/19/18 14:00 65 15 120/66 02/19/18 13:30 58 L 18 110/84 02/19/18 13:00 63 16 96/53 98 02/19/18 12:30 57 L 18 130/62 100 02/19/18 11:54 56 L 02/19/18 11:44 59 L 02/19/18 11:30 24 02/19/18 10:59 98.0 F 63 20 130/62 100 Intake and Output 02/19/18 02/20/18 02/20/18 22:59 06:59 14:59 Intake Total 320 Balance 320 Intake: Intake, IV Titration 80 Amount Sodium Chloride 0.9% 1, 80 000 ml @ 20 mls/hr IV . Q24H [facility] Rx#:[id number] Oral 240 Other: Voiding Method Diaper # Voids 1 Weight 77.111 kg 75.5 kg - Constitutional General appearance: cooperative, morbidly obese - EENT Eyes: EOMI, dentition normal ENT: hard of hearing, NA/AT - Neck No cervical adenopathy Neck: normal ROM - Respiratory Respiratory: bilateral: diminished (Bibasilar, increased effort, mild) - Cardiovascular Rhythm: regular Heart sounds: normal: S1, S2 foot Peripheral Edema: bilateral: 2+ (BLE edema, chronic venous insufficiency noted) - Gastrointestinal General gastrointestinal: normal bowel sounds, soft, tenderness - Integumentary Integumentary: normal - Neurologic Flat affect, slow to respond but with prompting answers appropriately - Musculoskeletal Wheelchair Musculoskeletal: generalized weakness - Psychiatric Alert baseline slow to respond and flat affect Results CBC & Chem 7: 02/20/18 08:26 02/20/18 08:26 Labs: Abnormal Lab Results - Last 24 Hours (Table) 02/19/18 02/19/18 02/19/18 Range/Units 11:43 11:43 20:10 WBC 1.5 L (3.8-10.6) k/uL RBC 2.46 L (3.80-5.40) m/uL Hgb 9.6 L (11.4-16.0) gm/dL Hct 28.4 L (34.0-46.0) % MCV 115.4 H (80.0-100.0) fL MCH 39.1 H (25.0-35.0) pg RDW 17.2 H (11.5-15.5) % Plt Count 100 L (150-450) k/uL Neutrophils # 0.8 L (1.3-7.7) k/uL Lymphocytes # 0.5 L (1.0-4.8) k/uL Chloride 96 L (98-107) mmol/L Carbon Dioxide 34 H (22-30) mmol/L BUN 33 H (7-17) mg/dL Creatinine 1.21 H (0.52-1.04) mg/dL POC Glucose (mg/dL) 295 H (75-99) mg/dL 02/20/18 Range/Units 07:14 WBC (3.8-10.6) k/uL RBC (3.80-5.40) m/uL Hgb (11.4-16.0) gm/dL Hct (34.0-46.0) % MCV (80.0-100.0) fL MCH (25.0-35.0) pg RDW (11.5-15.5) % Plt Count (150-450) k/uL Neutrophils # (1.3-7.7) k/uL Lymphocytes # (1.0-4.8) k/uL Chloride (98-107) mmol/L Carbon Dioxide (22-30) mmol/L BUN (7-17) mg/dL Creatinine (0.52-1.04) mg/dL POC Glucose (mg/dL) 225 H (75-99) mg/dL Assessment and Plan Plan: Assessment and Recommendations: 1. Metastatic Breast Cancer: - Under the care of Primary Oncologist Dr. Best - Maintained on Faslodex and Ibrance as outpatient - Ibrance on hold secondary to cytopenias 2. Pancytopenia secondary to chemotherapy - CSF resonable at this time while her Ibrance is on hold - Fisher culture and empiric abx per ID/Primary team Transfuse Hgb less than 7, PLatlets less than 10 Platelet count improved from earlier in week. <Tulio Best - Last Filed: 02/22/18 22:53> Physical Exam Vitals: Vital Signs Temp Pulse Pulse Resp BP Pulse Ox 02/22/18 11:57 90 02/22/18 11:47 88 02/22/18 08:48 92 02/22/18 08:38 94 02/22/18 05:00 97.3 F L 93 16 129/68 91 L 02/22/18 03:52 90 02/22/18 03:42 88 02/21/18 23:21 90 02/21/18 23:11 88 Intake and Output 02/22/18 02/22/18 02/22/18 06:59 14:59 22:59 Other: Voiding Method Toilet Toilet Diaper Diaper # Voids 1 Weight 75.5 kg Results CBC & Chem 7: 02/21/18 11:43 02/21/18 11:43 Labs: Abnormal Lab Results - Last 24 Hours (Table) 02/22/18 02/22/18 Range/Units 07:24 11:25 POC Glucose (mg/dL) 209 H 157 H (75-99) mg/dL Assessment and Plan Plan: Pt seen and examined. Agree with above. She is c/o difficulty with food bolus stuck in her throat. She has no evidence of tracheal obstruction. She will receive IM muscle relaxant, that has been effective previously. If this not effective, GI will be consulted for endoscopic removal.
[2018-02-20] MEDS: SYMBICORT 160-4.5 MCG INHALER INHALATION SCH ×2 (08:15→20:40)
[2018-02-20] MEDS: PANTOPRAZOLE 40 MG TABLET PO SCH (08:34)
[2018-02-20] MEDS: METOLAZONE 2.5 MG TAB PO SCH (08:36)
[2018-02-20] MEDS: FUROSEMIDE 40 MG TAB PO SCH (08:37)
[2018-02-20] MEDS: ALLOPURINOL 300 MG TAB PO SCH (08:37)
[2018-02-20] MEDS: LINAGLIPTIN 5 MG TABLET PO SCH (08:38)
[2018-02-20 09:01] LABS: Calcium 9.3 mg/dL (8.4-10.2); Potassium 3.6 mmol/L (3.5-5.1)
[2018-02-20 09:16] LABS: HGB 8.4 gm/dL (11.4-16.0); MCH 38.8 pg (25.0-35.0); MCHC 32.4 g/dL (31.0-37.0); RBC 2.16 m/uL (3.80-5.40); WBC 2.1 k/uL (3.8-10.6)
[2018-02-20 09:17] LABS: Anisocytosis Slight; Basophils % (A) 0 %; Eosinophils % (A) 1 %; Lymphocytes # (A) 0.2 k/uL (1.0-4.8); Lymphocytes % (A) 9 %; Macrocytosis Marked; Mean Platelet Volume 9.1; Monocytes # (A) 0.1 k/uL (0-1.0); Monocytes % (A) 3 %; Neutrophils # (A) 1.9 k/uL (1.3-7.7); Neutrophils % (A) 87 %; RDW 17.8 % (11.5-15.5)
[2018-02-20 10:22] LABS: Platelet Count 82 k/uL (150-450); Poikilocytosis (M) Present
[2018-02-20 11:23] LABS: Glucose,Whole Blood 230 mg/dL (75-99)
--- NOTE | 2018-02-20 13:12 | P.HPIM ---
History of Present Illness H&P Date: 02/19/18 Chief Complaint: Shortness of breath Patient is a 87-year-old female with a known history of breast cancer, metastatic initially diagnosed in 2010, status post lumpectomy and followed by mastectomy currently on chemotherapy came to ER with complaints of shortness of breath worsened this morning. Patient has been having shortness of breath for the past 2-3 days. She was hypoxic when EMS arrived. Patient denied any compressive fever or chills. No complaints of chest pain. No cough or sputum production. Patient does have prior paracentesis. Patient is on home oxygen. Patient does have a history of vascular dementia as well. Chest x-ray showed persistent moderate left pleural effusion and left-sided airspace disease. Likely compressive atelectasis. EKG showed normal sinus rhythm Patient is a poor historian and history was taken from her son at bedside and also medical records. Review of Systems Constitutional: Patient denies any fever or chills . No generalized weakness or weight loss. Abdomen: Patient denied nausea vomiting and diarrhea and abdominal pain. Cardiovascular: Patient denies any chest pain. Positive short of breath no palpitations. No leg swelling. Respiratory: Denied any cough or sputum production. Patient does have shortness of breath. Neurologic: Patient denied any numbness or tingling headache. Musculoskeletal: Patient denies any complaints of joint swelling or deformity. Skin: Negative Psychiatric: Negative Endocrine: No heat or cold intolerance. No recent weight gain. Genitourinary: No dysuria or hematuria. All other 14 point ROS negative except the above Past Medical History Past Medical History: Cancer, Chest Pain / Angina, Heart Failure, COPD, Diabetes Mellitus, GERD/Reflux, Hyperlipidemia, Hypertension, Memory Impairment , Osteoarthritis (OA), Respiratory Disorder, Sleep Apnea/CPAP/BIPAP Additional Past Medical History / Comment(s): O2 3 liters atc, GOUT, past hx of hemoptysis-LUNG CANCER, lt BREAST CA, osteoporosis,short term memory problems, past peptic ulcer disease, murmur. fell after thanksgiving -fx rt arm currently it's casteD. RIGHT PLEURAL EFFUSION. History of Any Multi-Drug Resistant Organisms: None Reported Past Surgical History: Section, Cholecystectomy, Hysterectomy, Joint Replacement, Tonsillectomy Additional Past Surgical History / Comment(s): LT BREAST BX,MASTECTOMY LEFT SIDE , JAMEL KNEE REPLACEMENT,several BRONCHOSCOPIES,PAST LAP BAND, EGD/COLONOSCOPY. RIGHT THORACENTESIS. Past Anesthesia/Blood Transfusion Reactions: No Reported Reaction Past Psychological History: No Psychological Hx Reported Additional Psychological History / Comment(s): PT'S SON LIVES WITH PT. PT USES CANE OR WALKER WHEN UP. ALSO HAS HOME [address], CPAP MACHINE. NO HOME CARE SERVICES. Smoking Status: Former smoker Past Alcohol Use History: None Reported Additional Past Alcohol Use History / Comment(s): SMOKED FOR A YEAR AGE [age], Past Drug Use History: None Reported - Past Family History Mother Family Medical History: Cancer Additional Family Medical History / Comment(s): BREAST CANCER Father Family Medical History: No Reported History Additional Family Medical History / Comment(s): PT STATED HER DAD NEVER WENT TO . LIVED TILL HE WAS 98 YEARS OLD Medications and Allergies Home Medications Medication Instructions Recorded Confirmed Type Albuterol Sulfate [Ventolin HFA] 2 puff INHALATION RT-Q6H PRN 04/21/15 02/19/18 History Allopurinol 300 mg PO DAILY 04/21/15 02/19/18 History Atorvastatin [Lipitor] 20 mg PO HS 04/21/15 02/19/18 History Metolazone 2.5 mg PO Q48H 04/21/15 02/19/18 History Nitroglycerin Sl Tabs [Nitrostat] 0.4 mg PO Q5M PRN 04/21/15 02/19/18 History Omeprazole 20 mg PO DAILY 04/21/15 02/19/18 History sitaGLIPtin [Januvia] 100 mg PO DAILY 04/21/15 02/19/18 History Alendronate Sodium [Fosamax] 70 mg PO MO 03/01/17 02/19/18 History Budesonide-Formot 160-4.5 Mcg 2 puff INHALATION RT-BID puff 04/09/17 02/19/18 Rx [Symbicort 160-4.5 Mcg Inhaler] Furosemide [Lasix] 40 mg PO DAILY #1 tablet 04/09/17 02/19/18 Rx Ipratropium-Albuterol Nebulize 3 ml INHALATION RT-QID ampul.neb 04/09/17 Rx [Duoneb 0.5 mg-3 mg/3 ml Soln] Naproxen Sodium [Aleve] 220 mg PO BID 02/19/18 02/19/18 History Palbociclib [Ibrance] 125 mg PO Q21D 02/19/18 02/19/18 History Allergies Allergy/AdvReac Type Severity Reaction Status Date / Time Penicillins Allergy Rash/Hives Verified 02/19/18 11:25 Physical Exam Vitals: Vital Signs Temp Pulse Pulse Resp BP BP Pulse Ox 02/19/18 21:09 97 02/19/18 21:08 74 02/19/18 20:53 68 02/19/18 18:20 94 L 02/19/18 17:03 98 F 72 18 140/72 88 L 02/19/18 16:30 70 18 124/65 02/19/18 16:00 61 129/67 100 02/19/18 15:57 64 02/19/18 15:48 60 02/19/18 15:30 59 L 15 127/81 97 02/19/18 15:00 64 18 125/61 02/19/18 14:30 67 19 126/56 95 02/19/18 14:00 65 15 120/66 02/19/18 13:30 58 L 18 110/84 02/19/18 13:00 63 16 96/53 98 02/19/18 12:30 57 L 18 130/62 100 02/19/18 11:54 56 L 02/19/18 11:44 59 L 02/19/18 11:30 24 02/19/18 10:59 98.0 F 63 20 130/62 100 Intake and Output 02/19/18 02/19/18 02/19/18 06:59 14:59 22:59 Other: Weight 77.111 kg 77.111 kg PHYSICAL EXAMINATION: Patient is lying in the bed comfortably, no acute distress, awake alert and oriented but lethargic.. HEENT: Normocephalic. Neck is supple. Pupils reactive. Nostrils clear. Oral cavity is moist. Ears reveal no drainage. Neck reveals no JVD, carotid bruits, or thyromegaly. CHEST EXAMINATION: Trachea is central. Symmetrical expansion. Diminished bibasilar air entry. No wheezing. CARDIAC: Normal S1, S2 with no gallops. No murmurs ABDOMEN: Soft. Bowel sounds normal. No organomegaly. No abdominal bruits. Extremities: reveal no edema. No clubbing or cyanosis Neurologically awake, alert, oriented x3 with well-coordinated movements. No focal deficits noted Skin: No rash or skin lesions. Psychiatric: Coperative. Could not bases is completely. Musculoskeletal: No joint swelling or deformity. Normal range of motion. Results CBC & Chem 7: 02/20/18 08:26 02/20/18 08:26 Labs: Abnormal Lab Results - Last 24 Hours (Table) 02/19/18 02/19/18 02/19/18 Range/Units 11:43 11:43 20:10 WBC 1.5 L (3.8-10.6) k/uL RBC 2.46 L (3.80-5.40) m/uL Hgb 9.6 L (11.4-16.0) gm/dL Hct 28.4 L (34.0-46.0) % MCV 115.4 H (80.0-100.0) fL MCH 39.1 H (25.0-35.0) pg RDW 17.2 H (11.5-15.5) % Plt Count 100 L (150-450) k/uL Neutrophils # 0.8 L (1.3-7.7) k/uL Lymphocytes # 0.5 L (1.0-4.8) k/uL Chloride 96 L (98-107) mmol/L Carbon Dioxide 34 H (22-30) mmol/L BUN 33 H (7-17) mg/dL Creatinine 1.21 H (0.52-1.04) mg/dL POC Glucose (mg/dL) 295 H (75-99) mg/dL Thrombosis Risk Factor Assmnt - DVT/VTE Prophylaxis DVT/VTE Prophylaxis: Pharmacologic Prophylaxis ordered - Choose All That Apply Each Factor Represents 1 point: Abnormal pulmonary function (COPD), Obesity ( BMI >25) Each Risk Factor Represents 2 Points: Malignancy Each Risk Factor Represents 3 Points: Age 75 years or older Thrombosis Risk Factor Assessment Total Risk Factor Score: 7 Thrombosis Risk Factor Assessment Level: High Risk Assessment and Plan Assessment: Shortness of breath secondary to moderate left-sided pleural effusion Metastatic breast cancer status post mastectomy. Currently undergoing chemotherapy by Dr. Best Pancytopenia secondary to chemotherapy COPD with mild exacerbation Hypertension Hyperlipidemia Diabetes type 2 GERD/duplex Vascular Dementia Obstructive sleep apnea on CPAP Acute on Chronic hypoxic respiratory failure. 3 L via nasal cannula History of smoking Plan: Patient will be continued on breathing treatments, IV steroids. Continue with Lasix and metolazone. Pulmonary and oncology will be consulted. Continue with oxygen therapy and home medications. Insulin sliding scale. Follow up closely. Further recommendations based on the clinical course. Prognosis is poor with multiple medical problems and underlying metastatic breast cancer. Discussed with her son at bedside in detail. Time with Patient: Greater than 30
--- NOTE | 2018-02-20 14:55 | P.CNPUL ---
History of Present Illness Consult date: 02/20/18 Reason for consult: dyspnea, chest pain History of present illness: 87-year-old female patient with known history of severe COPD with chronic hypoxic respiratory failure in addition to metastatic infiltrating ductal carcinoma of the breast in addition to known history of diabetes mellitus, hyperlipidemia, osteoporosis and obstructive sleep apnea was coming in for a fall and chest pain. The patient has history of recurrent falls and recently approximately a week ago she fell face overload and she had also sustained some trauma to her anterior chest on the right and the right shoulder area. She came into the hospital complaining of worsening shortness of breath and chest pain. She was initially seen by the nurse practitioner at the oncology office who recommended the patient, to the hospital for further evaluation. Chest x- ray was done and it showedPersistent moderate left-sided pleural effusion and some left-sided airspace disease secondary to compressive atelectasis. The right side was essentially unchanged and the patient had a moderate-sized hiatal hernia that was again seen. The patient is feeling better. The pain is subsided. No hemoptysis. No pleurisy. No altered mentation. His EKG had shown a normal sinus rhythm without any acute ST segment changes. The patient also had a drop in the white cell count which was down to 2.1 and this was attributed to systemic treatment that she is receiving for breast cancer. Oncology will be on the case. She has also chronic anemia, cytopenia for the same reasons. 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 Note that this patient was found to have metastatic breast cancer involving her lungs several years back. The patient back then we'll presented with hemoptysis and bronchoscopy showed endobronchial tumor and diagnosis was confirmed by endobronchial biopsy. The patient was started on Arimidex and she responded very nicely with significant improvement in her symptoms and resolution of hemoptysis and subsequent CAT scan of the chest showed decrease in the tumor burden. On general 2016, the patient another bronchoscopy and endobronchial brushings from the same area and the left lung showed no evidence of any cancer recurrence. At the later stage, the patient developed questionable new lesion in the right chest/axillary area measuring 1.4 cm and another lesion in the breast and I discussed this with Dr. Best and the patient was asked to continue the hormonal treatment with Arimidex at that time. Subsequent follow-up showed questionable left hilar lesion encasing left main stem bronchus without luminal narrowing. There was also evidence of some left lower lobe atelectasis as well as a small pleural effusion. On February 2016, the patient had another bronchoscopy and endobronchial irregularities seen in the left mainstem bronchus and the brushings were again performed and showed no evidence of any malignancy. I was however very much suspicious of tumor progression and based on that the patient was switched to Ibrance. The decision to switch this patient from Arimidex was based on the CAT scan that was done July that showed a left hilar encasing mass/neoplasm that was thought to be stable however there was additional right breast and chest lesions as well as subcutaneous abdominal lesions that were felt to be enlarging and suggestive of neoplastic progression. For that reason the patient was switched. This patient was in the hospital around March 2017. She had a increased shortness of breath and for that reason she presented to the hospital. She was found to have a moderate-sized left-sided pleural effusion along with bibasilar airspace disease/atelectasis. Her hemoglobin was 8.0. Her white cell count was at 2.3. The patient was hemodynamically stable. A CAT scan of the chest chest was done and showed consolidation in the superior segment of the left lower lobe. There was a large hiatal hernia. Moderate bilateral pleural effusion worse on the left. Consolidation the left perihilar area which is very consistent with a previous finding. I performed a large volume thoracentesis on this patient a total of 750 mL of pleural fluid was aspirated from the left lung and the fluid cytology came back negative for malignancy. Subsequent chest x-rays showed improvement in the volume status. The patient became less short of breath. The patient was to [facility] for further recuperation and she is currently back home. I'm seeing her today in follow-up. Note that the patient was receiving treatment and the patient was being treated by Dr. Mcnulty with Ibrance every 21 on/1 weeks off and she also takes monthly Fosladex. The patient's CA-15-3 level was slightly elevated at 39.9 and her CA 27-29 marker was up to 63.6 and the patient last tests CAT scan of the chest was done on 09/11/2017 and there was no evidence of any pulmonary embolism and there was chronic better pleural effusions which appeared to have increased on the right compared to the previous study. There was also chronic left-sided, left lower lobe infiltrate/ atelectasis was slightly looked worse and the large hiatal hernia was again seen. There was also chronic subcarinal density above the hiatal hernia that measured 3.5 x 2.5 cm in size. This was present to a smaller extent on previous CAT scans. Review of Systems Constitutional Constitutional: no fever, no night sweats, no significant weight gain, no significant weight loss, no exercise intolerance Eyes Eyes: no dry eyes, no vision change, no irritation ENMT Ears: no difficulty hearing, no ear pain Nose: no frequent nosebleeds, no nose problems, no sinus problems Mouth/Throat: no sore throat, no bleeding gums, no snoring, no dry mouth, no mouth ulcers, no oral abnormalities, no teeth problems Cardiovascular Cardiovascular: The patient had a fall and she has right anterior chest pain, no arm pain on exertion, shortness of breath when walking, no shortness of breath when lying down, no palpitations, no known heart murmur, the patient has chronic hypoxic respiratory failure and she is oxygen dependent Respiratory Respiratory: no cough, no wheezing, no coughing up blood, no sleep apnea, shortness of breath with exertion Gastrointestinal Gastrointestinal: no abdominal pain, no nausea, no vomiting, no constipation, normal appetite, no diarrhea, not vomiting blood, no dyspepsia, no GERD Genitourinary Genitourinary: no incontinence, no difficulty urinating, no hematuria, no increased frequency Musculoskeletal Musculoskeletal: no muscle aches, no muscle weakness, no back pain, no swelling in the extremities, arthralgias/joint pain (left shoulder pain) Integumentary Skin: no abnormal mole, no jaundice, no rashes, no laceration (new onset lesion over the left lateral abdominal wall) Neurologic Neurologic: no loss of consciousness, no weakness, no numbness, no seizures, no dizziness, no migraines, no headaches, no tremor Psychiatric Psych: no depression, no sleep disturbances, feeling safe in a relationship, no alcohol abuse, no anxiety, no hallucinations, no suicidal thoughts Endocrine Endocrine: no fatigue Hematologic/Lymphatic Hematologic/Lymphatic no swollen glands, no bruising, no excessive bleeding Allergic/Immunologic Allergy/Immunologic: no runny nose, no sinus pressure, no itching, no hives, no frequent sneezing Past Medical History Past Medical History: Cancer, Chest Pain / Angina, Heart Failure, COPD, Diabetes Mellitus, GERD/Reflux, Hyperlipidemia, Hypertension, Memory Impairment , Osteoarthritis (OA), Respiratory Disorder, Sleep Apnea/CPAP/BIPAP Additional Past Medical History / Comment(s): Severe COPD, chronic hypoxic respiratory failure action dependent, metastatic breast cancer with pulmonary involvement, history of chronic bilateral pleural effusion, history of recurrent falls, obesity with a BMI of 30.4, diabetes mellitus, hyperlipidemia, primary osteoporosis, obstructive sleep apnea, acid reflux, hyperlipidemia, osteoarthritis, memory impairment, peptic ulcer disease History of Any Multi-Drug Resistant Organisms: None Reported Past Surgical History: Section, Cholecystectomy, Hysterectomy, Joint Replacement, Tonsillectomy Additional Past Surgical History / Comment(s): LT BREAST BX,MASTECTOMY LEFT SIDE , JAMEL KNEE REPLACEMENT,several BRONCHOSCOPIES,PAST LAP BAND, EGD/COLONOSCOPY. RIGHT THORACENTESIS. Past Anesthesia/Blood Transfusion Reactions: No Reported Reaction Past Psychological History: No Psychological Hx Reported Additional Psychological History / Comment(s): PT'S SON LIVES WITH PT. PT USES CANE OR WALKER WHEN UP. ALSO HAS HOME [address], CPAP MACHINE. NO HOME CARE SERVICES. Smoking Status: Former smoker Past Alcohol Use History: None Reported Additional Past Alcohol Use History / Comment(s): SMOKED FOR A YEAR AGE 26-25, Past Drug Use History: None Reported - Past Family History Mother Family Medical History: Cancer Additional Family Medical History / Comment(s): BREAST CANCER Father Family Medical History: No Reported History Additional Family Medical History / Comment(s): PT STATED HER DAD NEVER WENT TO . LIVED TILL HE WAS 98 YEARS OLD Medications and Allergies Home Medications Medication Instructions Recorded Confirmed Type Albuterol Sulfate [Ventolin HFA] 2 puff INHALATION RT-Q6H PRN 04/21/15 02/19/18 History Allopurinol 300 mg PO DAILY 04/21/15 02/19/18 History Atorvastatin [Lipitor] 20 mg PO HS 04/21/15 02/19/18 History Metolazone 2.5 mg PO Q48H 04/21/15 02/19/18 History Nitroglycerin Sl Tabs [Nitrostat] 0.4 mg PO Q5M PRN 04/21/15 02/19/18 History Omeprazole 20 mg PO DAILY 04/21/15 02/19/18 History sitaGLIPtin [Januvia] 100 mg PO DAILY 04/21/15 02/19/18 History Alendronate Sodium [Fosamax] 70 mg PO MO 03/01/17 02/19/18 History Budesonide-Formot 160-4.5 Mcg 2 puff INHALATION RT-BID puff 04/09/17 02/19/18 Rx [Symbicort 160-4.5 Mcg Inhaler] Furosemide [Lasix] 40 mg PO DAILY #1 tablet 04/09/17 02/19/18 Rx Ipratropium-Albuterol Nebulize 3 ml INHALATION RT-QID ampul.neb 04/09/17 Rx [Duoneb 0.5 mg-3 mg/3 ml Soln] Naproxen Sodium [Aleve] 220 mg PO BID 02/19/18 02/19/18 History Palbociclib [Ibrance] 125 mg PO Q21D 02/19/18 02/19/18 History Allergies Allergy/AdvReac Type Severity Reaction Status Date / Time Penicillins Allergy Rash/Hives Verified 02/19/18 11:25 Physical Exam Vitals: Vital Signs Temp Pulse Pulse Resp BP BP Pulse Ox 02/20/18 12:37 97.8 F 80 18 122/74 90 L 02/20/18 12:27 82 02/20/18 12:14 80 02/20/18 08:28 70 02/20/18 08:15 74 02/20/18 07:30 18 02/20/18 05:00 98 F 71 18 119/56 99 02/20/18 03:37 72 02/20/18 03:29 97 02/20/18 03:28 70 02/19/18 23:17 74 02/19/18 23:04 72 02/19/18 22:18 18 02/19/18 21:09 97 02/19/18 21:08 74 02/19/18 20:53 68 02/19/18 20:15 98.6 F 74 16 105/62 92 L 02/19/18 18:20 94 L 02/19/18 17:03 98 F 72 18 140/72 88 L 02/19/18 16:30 70 18 124/65 02/19/18 16:00 61 129/67 100 02/19/18 15:57 64 02/19/18 15:48 60 02/19/18 15:30 59 L 15 127/81 97 02/19/18 15:00 64 18 125/61 Intake and Output 02/19/18 02/20/18 02/20/18 22:59 06:59 14:59 Intake Total 320 160 Balance 320 160 Intake: Intake, IV Titration 80 160 Amount Sodium Chloride 0.9% 1, 80 160 000 ml @ 20 mls/hr IV . Q24H [facility] Rx#:[id number] Oral 240 Other: Voiding Method Diaper Toilet Diaper # Voids 1 1 # Bowel Movements 1 Weight 77.111 kg 75.5 kg General Appearance no diaphoresis, no respiratory distress, speech not interrupted by breaths, no dyspnea, no pallor, not cachectic, well nourished, appears well, obesity HEENT no pursed lip breathing, no jugular venous distention, no mucous membrane cyanosis, no perioral cyanosis, mallampati classification: class 1, Mallampati Classification: Class 3 Chest no barrel chest, no retractions, no sternocleidomastoid muscle contractions, no supraclavicular retractions, no intercostal retractions, no prolonged expiratory wheezing, no decreased air movement, no rhonchi, no hyperinflation, decreased air movement in the lung bases bilaterally Heart no right ventricular heave, no distant heart sounds, no s3 gallop GI bowel sounds: hyperactive (borborygmi), bowel sounds: diminished or absent ( left lateral abdominal wall skin lesion with skin retractions.) Extremities no cyanosis, no clubbing, no edema (left shoulder full range of motion although it's painful upon rotation.) Neurologic no decreased mental status, no somnolence, no confusion Examination of the skin revealed no evidence of significant rashes, suspicious appearing nevi or other concerning lesions. Results - Laboratory Findings CBC and BMP: 02/20/18 08:26 02/20/18 08:26 PT/INR, D-dimer PT 9.7 sec (9.0-12.0) 02/19/18 13:30 INR 1.0 (<1.2) 02/19/18 13:30 Abnormal lab findings: Abnormal Labs 02/19/18 02/19/18 02/19/18 11:43 11:43 20:10 WBC 1.5 L RBC 2.46 L Hgb 9.6 L Hct 28.4 L MCV 115.4 H MCH 39.1 H RDW 17.2 H Plt Count 100 L Neutrophils # 0.8 L Lymphocytes # 0.5 L Chloride 96 L Carbon Dioxide 34 H BUN 33 H Creatinine 1.21 H Glucose POC Glucose (mg/dL) 295 H 02/20/18 02/20/18 02/20/18 07:14 08:26 08:26 WBC 2.1 L RBC 2.16 L Hgb 8.4 L Hct 26.0 L MCV 120.0 H MCH 38.8 H RDW 17.8 H Plt Count 82 L Neutrophils # Lymphocytes # 0.2 L Chloride 92 L Carbon Dioxide 31 H BUN 39 H Creatinine 1.22 H Glucose 239 H POC Glucose (mg/dL) 225 H 02/20/18 11:21 WBC RBC Hgb Hct MCV MCH RDW Plt Count Neutrophils # Lymphocytes # Chloride Carbon Dioxide BUN Creatinine Glucose POC Glucose (mg/dL) 230 H - Diagnostic Findings Chest x-ray: image reviewed Assessment and Plan Plan: Assessment 1 right-sided chest wall pain, likely skeletal in nature 2 severe COPD 3 chronic hypoxic respiratory failure 4 stage IV infiltrating ductal carcinoma of the breast with history of endobronchial involvement and hemoptysis initially responded to Arimidex and the patient remains stable he'll July 2016 when the patient showed evidence of disease progression and was found to have breast nodules addition to subcutaneous nodules over the anterior abdominal wall which was a sign of progression. The patient was switched to Ibrance and Fosladex and the treatment has been successful and there is interval decrease in the size of the subcutanous over the anterior abdominal wall. Her last CAT scan of the chest was done in September 2017 and the Patient will need a follow-up imaging. The bone scan from July 2016 showed no evidence of any bony metastases. Patient's tumor markers are being followed up and there is somewhat elevated under the care of oncology. 5 left-sided pleural effusion, post thoracentesis and evacuation of 750 mL of pleural fluid and 2017 and the fluid cytology was negative for malignancy. 6 right-sided pleural effusion 7 secondary malignancy involving the lungs as discussed above 8 obstructive sleep apnea 9 hyperlipidemia 10 osteoporosis 11 recurrent falls 12 chronic stage II kidney disease with a GFR of 41 Plan Patient was reassured. Repeat the CAT scan of the chest and compare to the previous CAT scan from September 2017 and decide if any further intervention will be needed in regards to the pleural effusion or any bronchoscopy should there be any indication of disease progression especially with her history of metastatic breast cancer with pulmonary involvement. We'll continue to follow.
--- NOTE | 2018-02-20 15:38 | CT ---
EXAMINATION TYPE: CT chest wo con DATE OF EXAM: 02/20/2018 COMPARISON: 09/11/2017 HISTORY: Chest pain, SOB CT DLP: [address] of the chest was performed with lung and mediastinal window settings submitted. The la ck of contrast limits evaluation of the vascular, mediastinal and parenchymal structures including th e upper abdomen. LUNGS: There is atelectasis and infiltrate at the left lung base. There is bilateral pleural effusion . There is a large hiatal hernia. Heart size is normal. MEDIASTINUM/ELEAZAR: Thoracic aorta is of normal caliber with limited evaluation given lack of contrast . The heart is not enlarged. No evidence for mediastinal mass. No lymph nodes greater than 1cm. UPPER ABDOMEN: No significant abnormality is seen. OTHER: No significant other abnormality. IMPRESSION: 1. Chronic pleural effusions with loculated component left lower lobe and associated atelectasis and /or infiltrate. 2. Large hiatal hernia
[2018-02-20] MEDS: SODIUM CHLORIDE 0.9% 1,000 ML IV SCH (16:01)
[2018-02-20 17:09] LABS: Glucose,Whole Blood 231 mg/dL (75-99)
[2018-02-20] MEDS ORDERED: ORPHENADRINE 30 MG/ML 2 ML VIAL IM STA (19:22)
[2018-02-20 20:22] LABS: Hemoglobin A1C 5.6 % (4.0-6.0)
[2018-02-20 20:26] LABS: Glucose,Whole Blood 170 mg/dL (75-99)
[2018-02-20] MEDS ORDERED: LIDOCAINE 1% INJ 10MG/ML (20 ML MDV) ONE (21:47)
[2018-02-20] MEDS ORDERED: PROPOFOL 10 MG/ML 20 ML VIAL IV ONE (21:47)
[2018-02-20] MEDS ORDERED: IV FLUID CONTINUATION 600 ML IV ONE (21:59)
[2018-02-20] MEDS: ATORVASTATIN 20 MG TAB PO SCH (22:09)
--- NOTE | 2018-02-20 22:32 | P.CONS ---
History of Present Illness - Reason for Consult Consult date: 02/20/18 Obstructive dysphagia. - History of Present Illness The patient is an 87-year-old female who was admitted to the hospital because of shortness of breath believed to be secondary to left pleural effusion with compressive atelectasis. We are asked to see her because of acute onset of difficulty swallowing that started while eating dinner tonight whereby she felt the food stuck in her esophagus and was having difficulty swallowing food and liquid, including inability to swallow her saliva and was having distress and shortness of breath. The patient had similar problems over the years with episodes requiring endoscopic interventions 2-3 times in the past. I have performed an upper endoscopy in 2013 and removed an impacted piece of meat with the snare. There was no definite underlying pathology back then. The patient has history of metastatic breast cancer initially diagnosed in 2010 and she underwent lumpectomy followed by mastectomy and chemotherapy. She was admitted to the hospital this admission because of shortness of breath of few days' duration and was hypoxic. She was found to have left pleural effusion and left-sided airspace disease. Other details are masses summarized in the history and physical and pulmonary and oncology consultation notes. The patient has not been having any significant difficulties with acid reflux or swallowing. There is no unintentional weight loss or bleeding. Review of Systems Constitutional: Denies fever, chills or unintentional weight loss Cardiopulmonary: Has shortness of breath and chest pain as noted Gastrointestinal: See present illness above Neurologic: No headaches, double vision or new sensory or motor changes Genitourinary: No hematuria, dysuria or frequency Skin: No rashes Musculoskeletal: No joint swelling or pain Endocrine: No polyuria or polydipsia Hematologic: No bleeding tendency Psychiatric: No anxiety or depression Past Medical History Past Medical History: Cancer, Chest Pain / Angina, Heart Failure, COPD, Diabetes Mellitus, GERD/Reflux, Hyperlipidemia, Hypertension, Memory Impairment , Osteoarthritis (OA), Respiratory Disorder, Sleep Apnea/CPAP/BIPAP Additional Past Medical History / Comment(s): O2 3 liters atc, GOUT, past hx of hemoptysis-LUNG CANCER, lt BREAST CA, osteoporosis,short term memory problems, past peptic ulcer disease, murmur. fell after thanksgiving -fx rt arm currently it's casteD. RIGHT PLEURAL EFFUSION. History of Any Multi-Drug Resistant Organisms: None Reported Past Surgical History: Section, Cholecystectomy, Hysterectomy, Joint Replacement, Tonsillectomy Additional Past Surgical History / Comment(s): LT BREAST BX,MASTECTOMY LEFT SIDE , JAMEL KNEE REPLACEMENT,several BRONCHOSCOPIES,PAST LAP BAND, EGD/COLONOSCOPY. RIGHT THORACENTESIS. Past Anesthesia/Blood Transfusion Reactions: No Reported Reaction Past Psychological History: No Psychological Hx Reported Additional Psychological History / Comment(s): PT'S SON LIVES WITH PT. PT USES CANE OR WALKER WHEN UP. ALSO HAS HOME [address], CPAP MACHINE. NO HOME CARE SERVICES. Smoking Status: Former smoker Past Alcohol Use History: None Reported Additional Past Alcohol Use History / Comment(s): SMOKED FOR A YEAR AGE [age], Past Drug Use History: None Reported - Past Family History Mother Family Medical History: Cancer Additional Family Medical History / Comment(s): BREAST CANCER Father Family Medical History: No Reported History Additional Family Medical History / Comment(s): PT STATED HER DAD NEVER WENT TO . LIVED TILL HE WAS 98 YEARS OLD Medications and Allergies Home Medications Medication Instructions Recorded Confirmed Type Albuterol Sulfate [Ventolin HFA] 2 puff INHALATION RT-Q6H PRN 04/21/15 02/19/18 History Allopurinol 300 mg PO DAILY 04/21/15 02/19/18 History Atorvastatin [Lipitor] 20 mg PO HS 04/21/15 02/19/18 History Metolazone 2.5 mg PO Q48H 04/21/15 02/19/18 History Nitroglycerin Sl Tabs [Nitrostat] 0.4 mg PO Q5M PRN 04/21/15 02/19/18 History Omeprazole 20 mg PO DAILY 04/21/15 02/19/18 History sitaGLIPtin [Januvia] 100 mg PO DAILY 04/21/15 02/19/18 History Alendronate Sodium [Fosamax] 70 mg PO MO 03/01/17 02/19/18 History Budesonide-Formot 160-4.5 Mcg 2 puff INHALATION RT-BID puff 04/09/17 02/19/18 Rx [Symbicort 160-4.5 Mcg Inhaler] Furosemide [Lasix] 40 mg PO DAILY #1 tablet 04/09/17 02/19/18 Rx Ipratropium-Albuterol Nebulize 3 ml INHALATION RT-QID ampul.neb 04/09/17 Rx [Duoneb 0.5 mg-3 mg/3 ml Soln] Naproxen Sodium [Aleve] 220 mg PO BID 02/19/18 02/19/18 History Palbociclib [Ibrance] 125 mg PO Q21D 02/19/18 02/19/18 History Allergies Allergy/AdvReac Type Severity Reaction Status Date / Time Penicillins Allergy Rash/Hives Verified 02/19/18 11:25 Physical Exam Vitals: Vital Signs Temp Pulse Pulse Resp BP Pulse Ox 02/20/18 21:36 97.1 F L 79 16 112/59 94 L 02/20/18 20:55 75 02/20/18 20:42 74 02/20/18 16:46 72 02/20/18 16:34 76 02/20/18 12:37 97.8 F 80 18 122/74 90 L 02/20/18 12:27 82 02/20/18 12:14 80 02/20/18 08:28 70 02/20/18 08:15 74 02/20/18 07:30 18 02/20/18 05:00 98 F 71 18 119/56 99 02/20/18 03:37 72 02/20/18 03:29 97 02/20/18 03:28 70 02/19/18 23:17 74 02/19/18 23:04 72 02/19/18 22:18 18 Intake and Output 02/20/18 02/20/18 02/20/18 06:59 14:59 22:59 Intake Total 160 50 Balance 160 50 Intake: IV 50 Intake, IV Titration 160 Amount Sodium Chloride 0.9% 1, 160 000 ml @ 20 mls/hr IV . Q24H [facility] Rx#:[id number] Other: Voiding Method Toilet Toilet Diaper Diaper # Voids 1 1 # Bowel Movements 1 Weight 75.5 kg General: Appears stated age, very pleasant in some distress Head and neck: Normocephalic and atraumatic, conjunctivae pink, sclerae not icteric, mucous membranes moist and pink. No masses in the neck or tracheal shifts Lungs: Dullness to percussion and decreased breath sounds over the left lung field Heart: Regular, no abnormal sounds, murmurs, gallops or friction rubs Abdomen: Soft, no masses or organomegalies. No tenderness. Bowel sounds present Extremities: No clubbing, cyanosis or pitting edema Neurologic: Alert and oriented 3, cranial nerves grossly intact, no gross sensory or motor abnormalities Results CBC & Chem 7: 02/20/18 08:26 02/20/18 08:26 Labs: Abnormal Lab Results - Last 24 Hours (Table) 02/20/18 02/20/18 02/20/18 Range/Units 07:14 08:26 08:26 WBC 2.1 L (3.8-10.6) k/uL RBC 2.16 L (3.80-5.40) m/uL Hgb 8.4 L (11.4-16.0) gm/dL Hct 26.0 L (34.0-46.0) % MCV 120.0 H (80.0-100.0) fL MCH 38.8 H (25.0-35.0) pg RDW 17.8 H (11.5-15.5) % Plt Count 82 L (150-450) k/uL Lymphocytes # 0.2 L (1.0-4.8) k/uL Chloride 92 L (98-107) mmol/L Carbon Dioxide 31 H (22-30) mmol/L BUN 39 H (7-17) mg/dL Creatinine 1.22 H (0.52-1.04) mg/dL Glucose 239 H (74-99) mg/dL POC Glucose (mg/dL) 225 H (75-99) mg/dL 02/20/18 02/20/18 02/20/18 Range/Units 11:21 17:07 20:25 WBC (3.8-10.6) k/uL RBC (3.80-5.40) m/uL Hgb (11.4-16.0) gm/dL Hct (34.0-46.0) % MCV (80.0-100.0) fL MCH (25.0-35.0) pg RDW (11.5-15.5) % Plt Count (150-450) k/uL Lymphocytes # (1.0-4.8) k/uL Chloride (98-107) mmol/L Carbon Dioxide (22-30) mmol/L BUN (7-17) mg/dL Creatinine (0.52-1.04) mg/dL Glucose (74-99) mg/dL POC Glucose (mg/dL) 230 H 231 H 170 H (75-99) mg/dL Assessment and Plan Assessment: 87-year-old female with obstructive dysphagia likely related to an impacted piece of meat. Patient will need endoscopic intervention on an urgent basis because of her inability to swallow including inability to swallow her saliva. Plan: We will proceed with an upper endoscopy for foreign body removal tonight.
--- NOTE | 2018-02-20 22:43 | P.PCN ---
Date of Procedure: 02/20/18 Procedure(s) Performed: Procedure: Esophagogastroduodenoscopy for removal of esophageal foreign body. Preoperative diagnosis: Obstructive dysphagia. Postoperative diagnosis: Moderately sized hiatal hernia with impacted food in the distal esophagus advanced into the stomach with gentle pressure of the endoscope. Preparation and sedation: Was provided by anesthesia. Brief clinical history: The patient is an 87-year-old female who was admitted to the hospital because of shortness of breath believed to be secondary to left pleural effusion with compressive atelectasis. We are asked to see her because of acute onset of difficulty swallowing that started while eating dinner tonight whereby she felt the food stuck in her esophagus and was having difficulty swallowing food and liquid, including inability to swallow her saliva and was having distress and shortness of breath. The patient had similar problems over the years with episodes requiring endoscopic interventions 2-3 times in the past. I have performed an upper endoscopy in 2013 and removed an impacted piece of meat with the snare. There was no definite underlying pathology back then. The patient has history of metastatic breast cancer initially diagnosed in 2010 and she underwent lumpectomy followed by mastectomy and chemotherapy. She was admitted to the hospital this admission because of shortness of breath of few days' duration and was hypoxic. She was found to have left pleural effusion and left-sided airspace disease. Other details are masses summarized in the history and physical and pulmonary and oncology consultation notes. This evaluation is to remove impacted esophageal foreign body. Procedure: With the patient on her left lateral decubitus position and after informed consent and adequate sedation, I passed the Olympus-GIF 160 video upper endoscope through the cricopharyngeus down the esophagus. There was significant amount of secretions and food debris that was suctioned then the impacted food was noted in the distal esophagus. I was able to advance the pieces of meat and vegetables into the stomach by gentle pressure with the endoscope. There was a moderately sized hiatal hernia. GE junction was around 30 cm from the incisors. There was no obvious esophagitis or any tight esophageal stricture. There was no impediment to advancing the endoscope The stomach was insufflated with air and inspected in detail including the retroflex view in the cardia. Finally, the endoscope was passed through the pylorus into the duodenum. No obvious abnormalities were seen in the stomach and duodenum. Undigested food was noted. The esophagus was inspected carefully as I was withdrawing the endoscope. There was no extrinsic compression or other pathology. The patient tolerated the procedure well. Plan: The patient was reassured. Will allow liquid diet tonight then she can advance her diet tomorrow. Further plans based on her course.
[2018-02-21] MEDS: IPRATROPIUM-ALBUTEROL 3 ML NEB INHALATION SCH ×7 (00:16→23:09)
--- NOTE | 2018-02-21 00:57 | P.PN ---
Subjective Progress Note Date: 02/20/18 Principal diagnosis: Shortness of breath, pleural effusion Severe COPD Left-sided pleural effusion Metastatic breast cancer Patient is a 87-year-old female with a known history of breast cancer, metastatic initially diagnosed in 2010, status post lumpectomy and followed by mastectomy currently on chemotherapy came to ER with complaints of shortness of breath worsened this morning. Patient has been having shortness of breath for the past 2-3 days. She was hypoxic when EMS arrived. Patient denied any compressive fever or chills. No complaints of chest pain. No cough or sputum production. Patient does have prior paracentesis. Patient is on home oxygen. Patient does have a history of vascular dementia as well. Chest x-ray showed persistent moderate left pleural effusion and left-sided airspace disease. Likely compressive atelectasis. EKG showed normal sinus rhythm 02/20/2018 Patient is pretty status is improved today. Able to sit in the chair without much shortness of breath. Pulmonary has seen the patient and CT of the chest was ordered. Otherwise no fever no chills. Tolerating oral diet. No other acute overnight issues. Oncology has seen the patient as well. All other review of systems negative except the above current medications reviewed. Objective - Vital Signs Vital signs: Vital Signs Temp 97.8 F 02/20/18 12:37 Pulse 80 02/20/18 12:37 Resp 18 02/20/18 12:37 BP 122/74 02/20/18 12:37 Pulse Ox 90 L 02/20/18 12:37 Intake & Output 02/19/18 02/20/18 02/20/18 18:59 06:59 18:59 Intake Total 320 160 Balance 320 160 Weight 77.111 kg 77.111 kg 75.5 kg Intake: Intake, IV Titration 80 160 Amount Sodium Chloride 0.9% 1, 80 160 000 ml @ 20 mls/hr IV . Q24H [facility] Rx#:[id number] Oral 240 Other: Voiding Method Diaper Toilet Diaper # Voids 1 1 # Bowel Movements 1 - Exam PHYSICAL EXAMINATION: Patient is lying in the bed comfortably, no acute distress, awake alert and oriented.. HEENT: Normocephalic. Neck is supple. Pupils reactive. Nostrils clear. Oral cavity is moist. Ears reveal no drainage. Neck reveals no JVD, carotid bruits, or thyromegaly. CHEST EXAMINATION: Trachea is central. Symmetrical expansion. Bilateral air entry improved. Lung deleon clear to auscultation and percussion. CARDIAC: Normal S1, S2 with no gallops. No murmurs ABDOMEN: Soft. Bowel sounds normal. No organomegaly. No abdominal bruits. Extremities: reveal no edema. No clubbing or cyanosis Neurologically awake, alert, oriented x3 with well-coordinated movements. No focal deficits noted Skin: No rash or skin lesions. Psychiatric: Coperative. Nonsuicidal Musculoskeletal: No joint swelling or deformity. Normal range of motion. - Labs CBC & Chem 7: 02/20/18 08:26 02/20/18 08:26 Labs: Abnormal Lab Results - Last 24 Hours (Table) 02/19/18 02/20/18 02/20/18 Range/Units 20:10 07:14 08:26 WBC 2.1 L (3.8-10.6) k/uL RBC 2.16 L (3.80-5.40) m/uL Hgb 8.4 L (11.4-16.0) gm/dL Hct 26.0 L (34.0-46.0) % MCV 120.0 H (80.0-100.0) fL MCH 38.8 H (25.0-35.0) pg RDW 17.8 H (11.5-15.5) % Plt Count 82 L (150-450) k/uL Lymphocytes # 0.2 L (1.0-4.8) k/uL Chloride (98-107) mmol/L Carbon Dioxide (22-30) mmol/L BUN (7-17) mg/dL Creatinine (0.52-1.04) mg/dL Glucose (74-99) mg/dL POC Glucose (mg/dL) 295 H 225 H (75-99) mg/dL 02/20/18 02/20/18 Range/Units 08:26 11:21 WBC (3.8-10.6) k/uL RBC (3.80-5.40) m/uL Hgb (11.4-16.0) gm/dL Hct (34.0-46.0) % MCV (80.0-100.0) fL MCH (25.0-35.0) pg RDW (11.5-15.5) % Plt Count (150-450) k/uL Lymphocytes # (1.0-4.8) k/uL Chloride 92 L (98-107) mmol/L Carbon Dioxide 31 H (22-30) mmol/L BUN 39 H (7-17) mg/dL Creatinine 1.22 H (0.52-1.04) mg/dL Glucose 239 H (74-99) mg/dL POC Glucose (mg/dL) 230 H (75-99) mg/dL Assessment and Plan Assessment: Shortness of breath secondary to moderate left-sided pleural effusion. Improving now Metastatic breast cancer status post mastectomy. Currently undergoing chemotherapy by Dr. Best Pancytopenia secondary to chemotherapy COPD with mild exacerbation Severe COPD and chronic hypoxic respiratory failure Hypertension Hyperlipidemia Diabetes type 2 GERD/duplex Vascular Dementia Obstructive sleep apnea on CPAP Acute on Chronic hypoxic respiratory failure. 3 L via nasal cannula History of smoking Plan: Patient will be continued on breathing treatments, IV steroids. Continue with Lasix and metolazone. Pulmonary and oncology is following. Follow-up CT chest report.. Continue with oxygen therapy and home medications. Insulin sliding scale. Follow up closely. Further recommendations based on the clinical course. Prognosis is poor with multiple medical problems and underlying metastatic breast cancer. Discussed with her son at bedside in detail. Time with Patient: Greater than 30
[2018-02-21] MEDS: methylPREDNISolone SOD SUCCI 125 MG/2 ML VIAL IV SCH (01:28)
[2018-02-21 07:44] LABS: Glucose,Whole Blood 179 mg/dL (75-99)
[2018-02-21] MEDS: SYMBICORT 160-4.5 MCG INHALER INHALATION SCH ×2 (09:21→20:34)
[2018-02-21] MEDS: INSULIN ASPART 100 UNIT/ML 1 ML 10 ML VIAL SQ SCH ×4 (10:07→20:26)
[2018-02-21] MEDS: LINAGLIPTIN 5 MG TABLET PO SCH (10:08)
[2018-02-21] MEDS: ALLOPURINOL 300 MG TAB PO SCH (10:08)
[2018-02-21] MEDS: methylPREDNISolone SOD SUCCI 40 MG/ML 1 ML VIAL IV SCH ×3 (10:08→23:52)
[2018-02-21] MEDS: FUROSEMIDE 40 MG TAB PO SCH (10:08)
[2018-02-21] MEDS: PANTOPRAZOLE 40 MG TABLET PO SCH (10:08)
[2018-02-21 12:01] LABS: Glucose,Whole Blood 171 mg/dL (75-99)
[2018-02-21 12:46] LABS: Albumin 3.3 g/dL (3.5-5.0); Calcium 9.3 mg/dL (8.4-10.2); Potassium 3.5 mmol/L (3.5-5.1); Total Bilirubin 0.6 mg/dL (0.2-1.3); Total Protein 6.1 g/dL (6.3-8.2)
[2018-02-21 12:56] LABS: Anisocytosis Slight; Basophils % (A) 0 %; Eosinophils % (A) 0 %; HCT 22.6 % (34.0-46.0); HGB 7.8 gm/dL (11.4-16.0); Lymphocytes # (A) 0.2 k/uL (1.0-4.8); Lymphocytes % (A) 10 %; MCH 40.6 pg (25.0-35.0); MCHC 34.4 g/dL (31.0-37.0); MCV 118.1 fL (80.0-100.0); Macrocytosis Marked; Mean Platelet Volume 9.5; Monocytes # (A) 0.2 k/uL (0-1.0); Monocytes % (A) 8 %; Neutrophils # (A) 1.8 k/uL (1.3-7.7); Neutrophils % (A) 79 %; RBC 1.91 m/uL (3.80-5.40); RDW 18.1 % (11.5-15.5); WBC 2.2 k/uL (3.8-10.6)
[2018-02-21 13:07] LABS: Platelet Count 86 k/uL (150-450)
--- NOTE | 2018-02-21 17:06 | P.PN ---
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 The patient has history of recurrent falls and recently approximately a week ago she fell face overload and she had also sustained some trauma to her anterior chest on the right and the right shoulder area. She came into the hospital complaining of worsening shortness of breath and chest pain. She was initially seen by the nurse practitioner at the oncology office who recommended the patient, to the hospital for further evaluation. Chest x- ray was done and it showedPersistent moderate left-sided pleural effusion and some left-sided airspace disease secondary to compressive atelectasis. The right side was essentially unchanged and the patient had a moderate-sized hiatal hernia that was again seen. The patient is feeling better. The pain is subsided. No hemoptysis. No pleurisy. No altered mentation. His EKG had shown a normal sinus rhythm without any acute ST segment changes. The patient also had a drop in the white cell count which was down to 2.1 and this was attributed to systemic treatment that she is receiving for breast cancer. Oncology will be on the case. She has also chronic anemia, cytopenia for the same reasons. 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 Note that this patient was found to have metastatic breast cancer involving her lungs several years back. The patient back then we'll presented with hemoptysis and bronchoscopy showed endobronchial tumor and diagnosis was confirmed by endobronchial biopsy. The patient was started on Arimidex and she responded very nicely with significant improvement in her symptoms and resolution of hemoptysis and subsequent CAT scan of the chest showed decrease in the tumor burden. On general 2016, the patient another bronchoscopy and endobronchial brushings from the same area and the left lung showed no evidence of any cancer recurrence. At the later stage, the patient developed questionable new lesion in the right chest/axillary area measuring 1.4 cm and another lesion in the breast and I discussed this with Dr. Best and the patient was asked to continue the hormonal treatment with Arimidex at that time. Subsequent follow-up showed questionable left hilar lesion encasing left main stem bronchus without luminal narrowing. There was also evidence of some left lower lobe atelectasis as well as a small pleural effusion. On February 2016, the patient had another bronchoscopy and endobronchial irregularities seen in the left mainstem bronchus and the brushings were again performed and showed no evidence of any malignancy. I was however very much suspicious of tumor progression and based on that the patient was switched to Ibrance. The decision to switch this patient from Arimidex was based on the CAT scan that was done July that showed a left hilar encasing mass/neoplasm that was thought to be stable however there was additional right breast and chest lesions as well as subcutaneous abdominal lesions that were felt to be enlarging and suggestive of neoplastic progression. For that reason the patient was switched. This patient was in the hospital around March 2017. She had a increased shortness of breath and for that reason she presented to the hospital. She was found to have a moderate-sized left-sided pleural effusion along with bibasilar airspace disease/atelectasis. Her hemoglobin was 8.0. Her white cell count was at 2.3. The patient was hemodynamically stable. A CAT scan of the chest chest was done and showed consolidation in the superior segment of the left lower lobe. There was a large hiatal hernia. Moderate bilateral pleural effusion worse on the left. Consolidation the left perihilar area which is very consistent with a previous finding. I performed a large volume thoracentesis on this patient a total of 750 mL of pleural fluid was aspirated from the left lung and the fluid cytology came back negative for malignancy. Subsequent chest x-rays showed improvement in the volume status. The patient became less short of breath. The patient was to [facility] for further recuperation and she is currently back home. I'm seeing her today in follow-up. Note that the patient was receiving treatment and the patient was being treated by Dr. Mcnulty with Ibrance every 21 on/1 weeks off and she also takes monthly Fosladex. The patient's CA-15-3 level was slightly elevated at 39.9 and her CA 27-29 marker was up to 63.6 and the patient last tests CAT scan of the chest was done on 09/11/2017 and there was no evidence of any pulmonary embolism and there was chronic better pleural effusions which appeared to have increased on the right compared to the previous study. There was also chronic left-sided, left lower lobe infiltrate/ atelectasis was slightly looked worse and the large hiatal hernia was again seen. There was also chronic subcarinal density above the hiatal hernia that measured 3.5 x 2.5 cm in size. This was present to a smaller extent on previous CAT scans. The patient is seen again today 02/21/2018 in follow-up on the oncology unit. She is currently resting comfortably in bed. She is awake and alert in no acute distress. Her chest x-ray revealed chronic pleural effusions with a loculated component of left lower lobe and associated atelectasis. There is a large hiatal hernia noted. White count 2.2. Hemoglobin 7.8. Platelet count 86, 000, creatinine 1.04. She remains on bronchodilators and Symbicort. Continued on IV Solu-Medrol. Patient did have an episode of dysphagia which became obstructed with food last evening. She had undergone a EGD and removal of foreign body per Dr. Barillas. Objective - Vital Signs Vital signs: Vital Signs Temp 98 F 02/21/18 13:00 Pulse 86 02/21/18 13:00 Resp 18 02/21/18 15:50 BP 117/56 02/21/18 13:00 Pulse Ox 100 02/21/18 13:00 Intake & Output 02/20/18 02/21/18 02/21/18 18:59 06:59 18:59 Intake Total 160 50 160 Balance 160 50 160 Weight 75.5 kg 75.5 kg Intake: IV 50 Intake, IV Titration 160 160 Amount Sodium Chloride 0.9% 1, 160 160 000 ml @ 20 mls/hr IV . Q24H [facility] Rx#:[id number] Other: Voiding Method Toilet Toilet Toilet Diaper Diaper Diaper # Voids 1 1 # Bowel Movements 1 - Exam GENERAL EXAM: Alert, active, comfortable in no apparent distress. HEAD: Normocephalic. EYES: Normal reaction of pupils, equal size. NOSE: Clear with pink turbinates. THROAT: No erythema or exudates. NECK: No masses, no JVD. CHEST: No chest wall deformity. LUNGS: Equal air entry with no crackles, wheeze, rhonchi or dullness. CVS: S1 and S2 normal with no audible murmur, regular rhythm. ABDOMEN: No hepatosplenomegaly, normal bowel sounds, no guarding or rigidity. SPINE: No scoliosis or deformity SKIN: No rashes CENTRAL NERVOUS SYSTEM: No focal deficits, tone is normal in all 4 extremities. EXTREMITIES: There is no peripheral edema. No clubbing, no cyanosis. Peripheral pulses are intact. - Labs CBC & Chem 7: 02/21/18 11:43 02/21/18 11:43 Labs: Abnormal Lab Results - Last 24 Hours (Table) 02/20/18 02/20/18 02/21/18 Range/Units 17:07 20:25 07:42 WBC (3.8-10.6) k/uL RBC (3.80-5.40) m/uL Hgb (11.4-16.0) gm/dL Hct (34.0-46.0) % MCV (80.0-100.0) fL MCH (25.0-35.0) pg RDW (11.5-15.5) % Plt Count (150-450) k/uL Lymphocytes # (1.0-4.8) k/uL Sodium (137-145) mmol/L Chloride (98-107) mmol/L Carbon Dioxide (22-30) mmol/L BUN (7-17) mg/dL Glucose (74-99) mg/dL POC Glucose (mg/dL) 231 H 170 H 179 H (75-99) mg/dL Total Protein (6.3-8.2) g/dL Albumin (3.5-5.0) g/dL 02/21/18 02/21/18 02/21/18 Range/Units 11:43 11:43 12:00 WBC 2.2 L (3.8-10.6) k/uL RBC 1.91 L (3.80-5.40) m/uL Hgb 7.8 L (11.4-16.0) gm/dL Hct 22.6 L (34.0-46.0) % MCV 118.1 H (80.0-100.0) fL MCH 40.6 H (25.0-35.0) pg RDW 18.1 H (11.5-15.5) % Plt Count 86 L (150-450) k/uL Lymphocytes # 0.2 L (1.0-4.8) k/uL Sodium 133 L (137-145) mmol/L Chloride 93 L (98-107) mmol/L Carbon Dioxide 31 H (22-30) mmol/L BUN 42 H (7-17) mg/dL Glucose 153 H (74-99) mg/dL POC Glucose (mg/dL) 171 H (75-99) mg/dL Total Protein 6.1 L (6.3-8.2) g/dL Albumin 3.3 L (3.5-5.0) g/dL Assessment and Plan Assessment: Assessment 1 right-sided chest wall pain, likely skeletal in nature 2 severe COPD 3 chronic hypoxic respiratory failure 4 stage IV infiltrating ductal carcinoma of the breast with history of endobronchial involvement and hemoptysis initially responded to Arimidex and the patient remains stable he'll July 2016 when the patient showed evidence of disease progression and was found to have breast nodules addition to subcutaneous nodules over the anterior abdominal wall which was a sign of progression. The patient was switched to Ibrance and Fosladex and the treatment has been successful and there is interval decrease in the size of the subcutanous over the anterior abdominal wall. Her last CAT scan of the chest was done in September 2017 and the Patient will need a follow-up imaging. The bone scan from July 2016 showed no evidence of any bony metastases. Patient's tumor markers are being followed up and there is somewhat elevated under the care of oncology. 5 left-sided pleural effusion, post thoracentesis and evacuation of 750 mL of pleural fluid and 2017 and the fluid cytology was negative for malignancy. 6 right-sided pleural effusion 7 secondary malignancy involving the lungs as discussed above 8 obstructive sleep apnea 9 hyperlipidemia 10 osteoporosis 11 recurrent falls 12 chronic stage II kidney disease with a GFR of 41 Plan he'll and The patient was seen and evaluated by Dr. Cabrera. CAT scan was reviewed. No evidence of progression. She is stable from the pulmonary standpoint. She couldn't complete course of prednisone taper. Continue Symbicort and DuoNeb inhalations. We will follow on as-needed basis.
[2018-02-21 17:29] LABS: Glucose,Whole Blood 215 mg/dL (75-99)
[2018-02-21] MEDS: SODIUM CHLORIDE 0.9% 1,000 ML IV SCH (17:57)
[2018-02-21 20:05] LABS: Glucose,Whole Blood 200 mg/dL (75-99)
[2018-02-21] MEDS: ATORVASTATIN 20 MG TAB PO SCH (20:26)
--- NOTE | 2018-02-21 21:15 | P.PN ---
Subjective Progress Note Date: 02/21/18 Principal diagnosis: metastatic Breast Cancer Patient required extraction of lettuce after choking last night. She is recovering and feeling better. Counts are stable. Objective - Vital Signs Vital signs: Vital Signs Temp 98 F 02/21/18 13:00 Pulse 86 02/21/18 20:53 Resp 18 02/21/18 15:50 BP 117/56 02/21/18 13:00 Pulse Ox 100 02/21/18 13:00 Intake & Output 02/21/18 02/21/18 02/22/18 06:59 18:59 06:59 Intake Total 50 160 Balance 50 160 Weight 75.5 kg Intake: IV 50 Intake, IV Titration 160 Amount Sodium Chloride 0.9% 1, 160 000 ml @ 20 mls/hr IV . Q24H [facility] Rx#:[id number] Other: Voiding Method Toilet Toilet Diaper Diaper # Voids 1 - Exam - Constitutional General appearance: cooperative, morbidly obese - EENT Eyes: EOMI, dentition normal ENT: hard of hearing, NA/AT - Neck No cervical adenopathy Neck: normal ROM - Respiratory Respiratory: bilateral: diminished (Bibasilar, increased effort, mild) - Cardiovascular Rhythm: regular Heart sounds: normal: S1, S2 foot Peripheral Edema: bilateral: 2+ (BLE edema, chronic venous insufficiency noted) - Gastrointestinal General gastrointestinal: normal bowel sounds, soft, tenderness - Integumentary Integumentary: normal - Neurologic Flat affect, slow to respond but with prompting answers appropriately - Musculoskeletal Wheelchair Musculoskeletal: generalized weakness - Psychiatric Alert baseline slow to respond and flat affect - Labs CBC & Chem 7: 02/21/18 11:43 02/21/18 11:43 Labs: Abnormal Lab Results - Last 24 Hours (Table) 02/21/18 02/21/18 02/21/18 Range/Units 07:42 11:43 11:43 WBC 2.2 L (3.8-10.6) k/uL RBC 1.91 L (3.80-5.40) m/uL Hgb 7.8 L (11.4-16.0) gm/dL Hct 22.6 L (34.0-46.0) % MCV 118.1 H (80.0-100.0) fL MCH 40.6 H (25.0-35.0) pg RDW 18.1 H (11.5-15.5) % Plt Count 86 L (150-450) k/uL Lymphocytes # 0.2 L (1.0-4.8) k/uL Sodium 133 L (137-145) mmol/L Chloride 93 L (98-107) mmol/L Carbon Dioxide 31 H (22-30) mmol/L BUN 42 H (7-17) mg/dL Glucose 153 H (74-99) mg/dL POC Glucose (mg/dL) 179 H (75-99) mg/dL Total Protein 6.1 L (6.3-8.2) g/dL Albumin 3.3 L (3.5-5.0) g/dL 02/21/18 02/21/18 02/21/18 Range/Units 12:00 17:18 20:03 WBC (3.8-10.6) k/uL RBC (3.80-5.40) m/uL Hgb (11.4-16.0) gm/dL Hct (34.0-46.0) % MCV (80.0-100.0) fL MCH (25.0-35.0) pg RDW (11.5-15.5) % Plt Count (150-450) k/uL Lymphocytes # (1.0-4.8) k/uL Sodium (137-145) mmol/L Chloride (98-107) mmol/L Carbon Dioxide (22-30) mmol/L BUN (7-17) mg/dL Glucose (74-99) mg/dL POC Glucose (mg/dL) 171 H 215 H 200 H (75-99) mg/dL Total Protein (6.3-8.2) g/dL Albumin (3.5-5.0) g/dL Assessment and Plan Plan: Assessment and Recommendations: 1. Metastatic Breast Cancer: - Under the care of Primary Oncologist Dr. Best - Maintained on Faslodex and Ibrance as outpatient - Ibrance on hold secondary to cytopenias 2. Pancytopenia secondary to chemotherapy - Fisher culture and empiric abx per ID/Primary team - Await restarting ibrance until CBC recovers. Physician Attestation: I have completed the full history and physical of this patient and agree with above dictation by Jennifer Arthur NP. DIctated as a scribe.
[2018-02-21 21:17] VITALS: RESP 16
[2018-02-22] MEDS: IPRATROPIUM-ALBUTEROL 3 ML NEB INHALATION SCH ×3 (03:39→11:45)
[2018-02-22 05:46] VITALS: BP 129/68; TEMP 97.3
[2018-02-22 07:27] LABS: Glucose,Whole Blood 209 mg/dL (75-99)
--- NOTE | 2018-02-22 08:33 | P.PN ---
Subjective Progress Note Date: 02/22/18 Principal diagnosis: Dyspnea chest pain, chronic left pleural effusion 87-year-old female patient with known history of severe COPD with chronic hypoxic respiratory failure in addition to metastatic infiltrating ductal carcinoma of the breast in addition to known history of diabetes mellitus, hyperlipidemia, osteoporosis and obstructive sleep apnea was coming in for a fall and chest pain. The patient has history of recurrent falls and recently approximately a week ago she fell face overload and she had also sustained some trauma to her anterior chest on the right and the right shoulder area. She came into the hospital complaining of worsening shortness of breath and chest pain. She was initially seen by the nurse practitioner at the oncology office who recommended the patient, to the hospital for further evaluation. Chest x- ray was done and it showedPersistent moderate left-sided pleural effusion and some left-sided airspace disease secondary to compressive atelectasis. The right side was essentially unchanged and the patient had a moderate-sized hiatal hernia that was again seen. The patient is feeling better. The pain is subsided. No hemoptysis. No pleurisy. No altered mentation. His EKG had shown a normal sinus rhythm without any acute ST segment changes. The patient also had a drop in the white cell count which was down to 2.1 and this was attributed to systemic treatment that she is receiving for breast cancer. Oncology will be on the case. She has also chronic anemia, cytopenia for the same reasons. 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 Note that this patient was found to have metastatic breast cancer involving her lungs several years back. The patient back then we'll presented with hemoptysis and bronchoscopy showed endobronchial tumor and diagnosis was confirmed by endobronchial biopsy. The patient was started on Arimidex and she responded very nicely with significant improvement in her symptoms and resolution of hemoptysis and subsequent CAT scan of the chest showed decrease in the tumor burden. On general 2016, the patient another bronchoscopy and endobronchial brushings from the same area and the left lung showed no evidence of any cancer recurrence. At the later stage, the patient developed questionable new lesion in the right chest/axillary area measuring 1.4 cm and another lesion in the breast and I discussed this with Dr. Best and the patient was asked to continue the hormonal treatment with Arimidex at that time. Subsequent follow-up showed questionable left hilar lesion encasing left main stem bronchus without luminal narrowing. There was also evidence of some left lower lobe atelectasis as well as a small pleural effusion. On February 2016, the patient had another bronchoscopy and endobronchial irregularities seen in the left mainstem bronchus and the brushings were again performed and showed no evidence of any malignancy. I was however very much suspicious of tumor progression and based on that the patient was switched to Ibrance. The decision to switch this patient from Arimidex was based on the CAT scan that was done July that showed a left hilar encasing mass/neoplasm that was thought to be stable however there was additional right breast and chest lesions as well as subcutaneous abdominal lesions that were felt to be enlarging and suggestive of neoplastic progression. For that reason the patient was switched. This patient was in the hospital around March 2017. She had a increased shortness of breath and for that reason she presented to the hospital. She was found to have a moderate-sized left-sided pleural effusion along with bibasilar airspace disease/atelectasis. Her hemoglobin was 8.0. Her white cell count was at 2.3. The patient was hemodynamically stable. A CAT scan of the chest chest was done and showed consolidation in the superior segment of the left lower lobe. There was a large hiatal hernia. Moderate bilateral pleural effusion worse on the left. Consolidation the left perihilar area which is very consistent with a previous finding. I performed a large volume thoracentesis on this patient a total of 750 mL of pleural fluid was aspirated from the left lung and the fluid cytology came back negative for malignancy. Subsequent chest x-rays showed improvement in the volume status. The patient became less short of breath. The patient was to [facility] for further recuperation and she is currently back home. I'm seeing her today in follow-up. Note that the patient was receiving treatment and the patient was being treated by Dr. Mcnulty with Ibrance every 21 on/1 weeks off and she also takes monthly Fosladex. The patient's CA-15-3 level was slightly elevated at 39.9 and her CA 27-29 marker was up to 63.6 and the patient last tests CAT scan of the chest was done on 09/11/2017 and there was no evidence of any pulmonary embolism and there was chronic better pleural effusions which appeared to have increased on the right compared to the previous study. There was also chronic left-sided, left lower lobe infiltrate/ atelectasis was slightly looked worse and the large hiatal hernia was again seen. There was also chronic subcarinal density above the hiatal hernia that measured 3.5 x 2.5 cm in size. This was present to a smaller extent on previous CAT scans. The patient is seen again today 02/21/2018 in follow-up on the oncology unit. She is currently resting comfortably in bed. She is awake and alert in no acute distress. Her chest x-ray revealed chronic pleural effusions with a loculated component of left lower lobe and associated atelectasis. There is a large hiatal hernia noted. White count 2.2. Hemoglobin 7.8. Platelet count 86, 000, creatinine 1.04. She remains on bronchodilators and Symbicort. Continued on IV Solu-Medrol. Patient did have an episode of dysphagia which became obstructed with food last evening. She had undergone a EGD and removal of foreign body per Dr. Barillas. On 02/22/2018 patient seen in follow-up on oncology floor. She is awake and alert, in no acute distress, denies any dyspnea, denies any chest pain. She is on 2 L per nasal cannula, her pulse ox is 91%, she is afebrile, hemodynamically stable. She is status post EGD would removal of foreign body by Dr. Webb. She is tolerating modified diet. Lung sounds as if for a few scattered crackles , no rhonchi, no wheezes. Patient is complaining she hasn't been sleeping very well at night, and she thinks it is due to steroids. No new chest x-rays, no new labs today. Patient has a chronic left-sided pleural effusion, does not need thoracentesis. Increase activity as tolerated, patient is requesting to go home today. From pulmonary perspective patient can be switched to oral prednisone, and discharge home today. Objective - Vital Signs Vital signs: Vital Signs Temp 97.3 F L 02/22/18 05:00 Pulse 93 02/22/18 05:00 Resp 16 02/22/18 05:00 BP 129/68 02/22/18 05:00 Pulse Ox 91 L 02/22/18 05:00 Intake & Output 02/21/18 02/22/18 02/22/18 18:59 06:59 18:59 Intake Total 160 Balance 160 Weight 75.5 kg Intake: Intake, IV Titration 160 Amount Sodium Chloride 0.9% 1, 160 000 ml @ 20 mls/hr IV . Q24H [facility] Rx#:[id number] Other: Voiding Method Toilet Toilet Diaper Diaper # Voids 1 - Exam GENERAL EXAM: Alert, active, comfortable in no apparent distress. HEAD: Normocephalic. EYES: Normal reaction of pupils, equal size. NOSE: Clear with pink turbinates. THROAT: No erythema or exudates. NECK: No masses, no JVD. CHEST: No chest wall deformity. LUNGS: Equal air entry with a few scattered crackles crackles, no wheeze, rhonchi or dullness. CVS: S1 and S2 normal with no audible murmur, regular rhythm. ABDOMEN: No hepatosplenomegaly, normal bowel sounds, no guarding or rigidity. SPINE: No scoliosis or deformity SKIN: No rashes CENTRAL NERVOUS SYSTEM: No focal deficits, tone is normal in all 4 extremities. EXTREMITIES: There is no peripheral edema. No clubbing, no cyanosis. Peripheral pulses are intac - Labs CBC & Chem 7: 02/21/18 11:43 02/21/18 11:43 Labs: Abnormal Lab Results - Last 24 Hours (Table) 02/21/18 02/21/18 02/21/18 Range/Units 11:43 11:43 12:00 WBC 2.2 L (3.8-10.6) k/uL RBC 1.91 L (3.80-5.40) m/uL Hgb 7.8 L (11.4-16.0) gm/dL Hct 22.6 L (34.0-46.0) % MCV 118.1 H (80.0-100.0) fL MCH 40.6 H (25.0-35.0) pg RDW 18.1 H (11.5-15.5) % Plt Count 86 L (150-450) k/uL Lymphocytes # 0.2 L (1.0-4.8) k/uL Sodium 133 L (137-145) mmol/L Chloride 93 L (98-107) mmol/L Carbon Dioxide 31 H (22-30) mmol/L BUN 42 H (7-17) mg/dL Glucose 153 H (74-99) mg/dL POC Glucose (mg/dL) 171 H (75-99) mg/dL Total Protein 6.1 L (6.3-8.2) g/dL Albumin 3.3 L (3.5-5.0) g/dL 02/21/18 02/21/18 02/22/18 Range/Units 17:18 20:03 07:24 WBC (3.8-10.6) k/uL RBC (3.80-5.40) m/uL Hgb (11.4-16.0) gm/dL Hct (34.0-46.0) % MCV (80.0-100.0) fL MCH (25.0-35.0) pg RDW (11.5-15.5) % Plt Count (150-450) k/uL Lymphocytes # (1.0-4.8) k/uL Sodium (137-145) mmol/L Chloride (98-107) mmol/L Carbon Dioxide (22-30) mmol/L BUN (7-17) mg/dL Glucose (74-99) mg/dL POC Glucose (mg/dL) 215 H 200 H 209 H (75-99) mg/dL Total Protein (6.3-8.2) g/dL Albumin (3.5-5.0) g/dL Assessment and Plan Plan: 1 right-sided chest wall pain, likely skeletal in nature, resolved 2 severe COPD 3 chronic hypoxic respiratory failure 4 stage IV infiltrating ductal carcinoma of the breast with history of endobronchial involvement and hemoptysis initially responded to Arimidex and the patient remains stable he'll July 2016 when the patient showed evidence of disease progression and was found to have breast nodules addition to subcutaneous nodules over the anterior abdominal wall which was a sign of progression. The patient was switched to Ibrance and Fosladex and the treatment has been successful and there is interval decrease in the size of the subcutanous over the anterior abdominal wall. Her last CAT scan of the chest was done in September 2017 and the Patient will need a follow-up imaging. The bone scan from July 2016 showed no evidence of any bony metastases. Patient's tumor markers are being followed up and there is somewhat elevated under the care of oncology. 5 left-sided pleural effusion, post thoracentesis and evacuation of 750 mL of pleural fluid and 2017 and the fluid cytology was negative for malignancy. 6 right-sided pleural effusion 7 secondary malignancy involving the lungs as discussed above 8 obstructive sleep apnea 9 hyperlipidemia 10 osteoporosis 11 recurrent falls 12 chronic stage II kidney disease with a GFR of 41 Plan: Patient remains stable from pulmonary perspective, no worsening dyspnea, her chest pain has resolved. She is complaining of insomnia, and she thinks this is due to steroids, no rhonchi, no wheezing, no shortness of breath, no cough or phlegm production. We will switch the IV steroids to oral prednisone 30 mg daily. From pulmonary perspective patient is stable, and could be considered for discharge home today I performed a history & physical examination of the patient and discussed their management with my nurse practitioner, Isabella Alexis. I reviewed the nurse practitioner's note and agree with the documented findings and plan of care. Lung sounds are positive for a few scattered crackles at the bases. The findings and the impression was discussed with the patient. I attest to the documentation by the nurse practitioner. Time with Patient: Less than 30
[2018-02-22] MEDS: SYMBICORT 160-4.5 MCG INHALER INHALATION SCH (08:35)
[2018-02-22] MEDS: INSULIN ASPART 100 UNIT/ML 1 ML 10 ML VIAL SQ SCH ×2 (08:56→13:00)
[2018-02-22] MEDS: ALLOPURINOL 300 MG TAB PO SCH (08:56)
[2018-02-22] MEDS: FUROSEMIDE 40 MG TAB PO SCH (08:57)
[2018-02-22] MEDS: LINAGLIPTIN 5 MG TABLET PO SCH (08:57)
[2018-02-22] MEDS: PANTOPRAZOLE 40 MG TABLET PO SCH (08:57)
[2018-02-22] MEDS: METOLAZONE 2.5 MG TAB PO SCH (08:57)
[2018-02-22] MEDS ORDERED: predniSONE 10 MG TAB PO SCH (09:00)
[2018-02-22 11:27] LABS: Glucose,Whole Blood 157 mg/dL (75-99)
[2018-02-22 11:58] VITALS: PULSE 90
[2018-02-23] MEDS ORDERED: ALENDRONATE SODIUM PO SCH (06:30)
--- NOTE | 2018-02-24 17:47 | P.PN ---
Subjective Progress Note Date: 02/21/18 Principal diagnosis: Shortness of breath, pleural effusion Severe COPD Left-sided pleural effusion Metastatic breast cancer Patient is a 87-year-old female with a known history of breast cancer, metastatic initially diagnosed in 2010, status post lumpectomy and followed by mastectomy currently on chemotherapy came to ER with complaints of shortness of breath worsened this morning. Patient has been having shortness of breath for the past 2-3 days. She was hypoxic when EMS arrived. Patient denied any compressive fever or chills. No complaints of chest pain. No cough or sputum production. Patient does have prior paracentesis. Patient is on home oxygen. Patient does have a history of vascular dementia as well. Chest x-ray showed persistent moderate left pleural effusion and left-sided airspace disease. Likely compressive atelectasis. EKG showed normal sinus rhythm 02/20/2018 Patient is pretty status is improved today. Able to sit in the chair without much shortness of breath. Pulmonary has seen the patient and CT of the chest was ordered. Otherwise no fever no chills. Tolerating oral diet. No other acute overnight issues. Oncology has seen the patient as well. 02/21/2018 Patient's breathing status was improved. CT of the chest showed chronic loculated pleural effusion. Noted for paracentesis. Patient was seen by pulmonary. Overall patient is improving. No fever no chills. No nausea vomiting or abdominal pain. No diarrhea or dysuria. Otherwise later in the day today, patient did have foreign body obstruction in the esophagus and underwent emergent EGD with removal. All other review of systems negative except the above current medications reviewed. Objective - Vital Signs Vital signs: Vital Signs Temp 98 F 02/21/18 13:00 Pulse 82 02/21/18 17:29 Resp 18 02/21/18 15:50 BP 117/56 02/21/18 13:00 Pulse Ox 100 02/21/18 13:00 Intake & Output 02/20/18 02/21/18 02/21/18 18:59 06:59 18:59 Intake Total 160 50 160 Balance 160 50 160 Weight 75.5 kg 75.5 kg Intake: IV 50 Intake, IV Titration 160 160 Amount Sodium Chloride 0.9% 1, 160 160 000 ml @ 20 mls/hr IV . Q24H [facility] Rx#:[id number] Other: Voiding Method Toilet Toilet Toilet Diaper Diaper Diaper # Voids 1 1 # Bowel Movements 1 - Exam PHYSICAL EXAMINATION: Patient is lying in the bed comfortably, no acute distress, awake alert and oriented.. HEENT: Normocephalic. Neck is supple. Pupils reactive. Nostrils clear. Oral cavity is moist. Ears reveal no drainage. Neck reveals no JVD, carotid bruits, or thyromegaly. CHEST EXAMINATION: Trachea is central. Symmetrical expansion. Bilateral air entry improved. Lung deleon clear to auscultation and percussion. CARDIAC: Normal S1, S2 with no gallops. No murmurs ABDOMEN: Soft. Bowel sounds normal. No organomegaly. No abdominal bruits. Extremities: reveal no edema. No clubbing or cyanosis Neurologically awake, alert, oriented x3 with well-coordinated movements. No focal deficits noted Skin: No rash or skin lesions. Psychiatric: Coperative. Nonsuicidal Musculoskeletal: No joint swelling or deformity. Normal range of motion. - Labs CBC & Chem 7: 02/21/18 11:43 02/21/18 11:43 Labs: Abnormal Lab Results - Last 24 Hours (Table) 02/20/18 02/21/18 02/21/18 Range/Units 20:25 07:42 11:43 WBC 2.2 L (3.8-10.6) k/uL RBC 1.91 L (3.80-5.40) m/uL Hgb 7.8 L (11.4-16.0) gm/dL Hct 22.6 L (34.0-46.0) % MCV 118.1 H (80.0-100.0) fL MCH 40.6 H (25.0-35.0) pg RDW 18.1 H (11.5-15.5) % Plt Count 86 L (150-450) k/uL Lymphocytes # 0.2 L (1.0-4.8) k/uL Sodium (137-145) mmol/L Chloride (98-107) mmol/L Carbon Dioxide (22-30) mmol/L BUN (7-17) mg/dL Glucose (74-99) mg/dL POC Glucose (mg/dL) 170 H 179 H (75-99) mg/dL Total Protein (6.3-8.2) g/dL Albumin (3.5-5.0) g/dL 02/21/18 02/21/18 02/21/18 Range/Units 11:43 12:00 17:18 WBC (3.8-10.6) k/uL RBC (3.80-5.40) m/uL Hgb (11.4-16.0) gm/dL Hct (34.0-46.0) % MCV (80.0-100.0) fL MCH (25.0-35.0) pg RDW (11.5-15.5) % Plt Count (150-450) k/uL Lymphocytes # (1.0-4.8) k/uL Sodium 133 L (137-145) mmol/L Chloride 93 L (98-107) mmol/L Carbon Dioxide 31 H (22-30) mmol/L BUN 42 H (7-17) mg/dL Glucose 153 H (74-99) mg/dL POC Glucose (mg/dL) 171 H 215 H (75-99) mg/dL Total Protein 6.1 L (6.3-8.2) g/dL Albumin 3.3 L (3.5-5.0) g/dL Assessment and Plan Assessment: Shortness of breath secondary to moderate left-sided pleural effusion. Improving now Foreign body obstruction vasovagal status post emergent EGD and removal. Metastatic breast cancer status post mastectomy. Currently undergoing chemotherapy by Dr. Best Pancytopenia secondary to chemotherapy COPD with mild exacerbation Severe COPD and chronic hypoxic respiratory failure Hypertension Hyperlipidemia Diabetes type 2 GERD/duplex Vascular Dementia Obstructive sleep apnea on CPAP Acute on Chronic hypoxic respiratory failure. 3 L via nasal cannula History of smoking Plan: Patient will be continued on breathing treatments, IV steroids. Continue with Lasix and metolazone. Pulmonary and oncology is following. Continue with oxygen therapy and home medications. Insulin sliding scale. Follow up closely. Further recommendations based on the clinical course. Prognosis is poor with multiple medical problems and underlying metastatic breast cancer. Discussed with her son at bedside in detail. Time with Patient: Greater than 30
--- NOTE | 2018-02-24 17:50 | P.DS ---
Providers Date of admission: 02/19/18 14:51 Expected date of discharge: 02/22/18 Attending physician: Flip Erwin Consults: 02/19/18 14:47 Consult Physician Routine Consulting Provider: Adam Cabrera Consult Reason/Comments: COPD, left pleural effusion Do you want consulting provider notified?: Yes Consult Physician Routine Consulting Provider: Tulio Best Consult Reason/Comments: Metastatic breast cancer Do you want consulting provider notified?: Yes 02/20/18 20:54 Consult Physician Stat Consulting Provider: Arash Barillas Consult Reason/Comments: food lodged in throat Do you want consulting provider notified?: Yes Primary care physician: Jamar Monge [facility] Hospital Course: Discharge diagnosis Shortness of breath secondary to moderate left-sided pleural effusion and COPD. Improving now. Foreign body obstruction vasovagal status post emergent EGD and removal. Metastatic breast cancer status post mastectomy. Currently undergoing chemotherapy by Dr. Best Pancytopenia secondary to chemotherapy COPD with mild exacerbation Severe COPD and chronic hypoxic respiratory failure Hypertension Hyperlipidemia Diabetes type 2 GERD/duplex Vascular Dementia Obstructive sleep apnea on CPAP Acute on Chronic hypoxic respiratory failure. 3 L via nasal cannula History of smoking Hospital course Patient is a 87-year-old female with a known history of breast cancer, metastatic initially diagnosed in 2010, status post lumpectomy and followed by mastectomy currently on chemotherapy came to ER with complaints of shortness of breath worsened this morning. Patient has been having shortness of breath for the past 2-3 days. She was hypoxic when EMS arrived. Patient denied any compressive fever or chills. No complaints of chest pain. No cough or sputum production. Patient does have prior paracentesis. Patient is on home oxygen. Patient does have a history of vascular dementia as well. Chest x-ray showed persistent moderate left pleural effusion and left-sided airspace disease. Likely compressive atelectasis. EKG showed normal sinus rhythm 02/20/2018 Patient is pretty status is improved today. Able to sit in the chair without much shortness of breath. Pulmonary has seen the patient and CT of the chest was ordered. Otherwise no fever no chills. Tolerating oral diet. No other acute overnight issues. Oncology has seen the patient as well. 02/21/2018 Patient's breathing status was improved. CT of the chest showed chronic loculated pleural effusion. Noted for paracentesis. Patient was seen by pulmonary. Overall patient is improving. No fever no chills. No nausea vomiting or abdominal pain. No diarrhea or dysuria. Otherwise later in the day today, patient did have foreign body obstruction in the esophagus and underwent emergent EGD with removal. 02/22/2018 Patient denied any complaints of chest pain or shortness of breath. Tolerating oral diet without any difficulty. No fever no chills. No other acute overnight issues. Patient is stable to be discharged home. Plan Patient was continued on breathing treatments, IV steroids. Steroids changed to by mouth. Continued with Lasix and metolazone. Pulmonary and oncology has seen the patient. CT of the chest was done. Noted for paracentesis. Patient does have chronic loculated pleural effusion.. Continue with oxygen therapy and home medications. Insulin sliding scale. Followed up closely. Prognosis is poor with multiple medical problems and underlying metastatic breast cancer. Discussed with her son at bedside in detail. Recommended to follow with primary physician and oncology as outpatient. PHYSICAL EXAMINATION: Patient is lying in the bed comfortably, no acute distress, awake alert and oriented.. HEENT: Normocephalic. Neck is supple. Pupils reactive. Nostrils clear. Oral cavity is moist. Ears reveal no drainage. Neck reveals no JVD, carotid bruits, or thyromegaly. CHEST EXAMINATION: Trachea is central. Symmetrical expansion. Bilateral air entry improved. Lung deleon clear to auscultation and percussion. CARDIAC: Normal S1, S2 with no gallops. No murmurs ABDOMEN: Soft. Bowel sounds normal. No organomegaly. No abdominal bruits. Extremities: reveal no edema. No clubbing or cyanosis Neurologically awake, alert, oriented x3 with well-coordinated movements. No focal deficits noted Skin: No rash or skin lesions. Psychiatric: Coperative. Nonsuicidal Musculoskeletal: No joint swelling or deformity. Normal range of motion. Discharge vitals reviewed. Patient Condition at Discharge: Stable Plan - Discharge Summary New Discharge Prescriptions: New predniSONE See Taper PO DAILY #15 tab Continue sitaGLIPtin [Januvia] 100 mg PO DAILY Omeprazole 20 mg PO DAILY Metolazone 2.5 mg PO Q48H Allopurinol 300 mg PO DAILY Albuterol Sulfate [Ventolin HFA] 2 puff INHALATION RT-Q6H PRN PRN Reason: Shortness Of Breath Nitroglycerin Sl Tabs [Nitrostat] 0.4 mg PO Q5M PRN PRN Reason: Angina Atorvastatin [Lipitor] 20 mg PO HS Alendronate Sodium [Fosamax] 70 mg PO MO Budesonide-Formot 160-4.5 Mcg [Symbicort 160-4.5 Mcg Inhaler] 2 puff INHALATION RT-BID puff Ipratropium-Albuterol Nebulize [Duoneb 0.5 mg-3 mg/3 ml Soln] 3 ml INHALATION RT-QID ampul.neb Furosemide [Lasix] 40 mg PO DAILY #1 tablet Palbociclib [Ibrance] 125 mg PO Q21D Naproxen Sodium [Aleve] 220 mg PO BID Discharge Medication List Albuterol Sulfate [Ventolin HFA] 2 puff INHALATION RT-Q6H PRN 04/21/15 [History] Allopurinol 300 mg PO DAILY 04/21/15 [History] Atorvastatin [Lipitor] 20 mg PO HS 04/21/15 [History] Metolazone 2.5 mg PO Q48H 04/21/15 [History] Nitroglycerin Sl Tabs [Nitrostat] 0.4 mg PO Q5M PRN 04/21/15 [History] Omeprazole 20 mg PO DAILY 04/21/15 [History] sitaGLIPtin [Januvia] 100 mg PO DAILY 04/21/15 [History] Alendronate Sodium [Fosamax] 70 mg PO MO 03/01/17 [History] Budesonide-Formot 160-4.5 Mcg [Symbicort 160-4.5 Mcg Inhaler] 2 puff INHALATION RT-BID puff 04/09/17 [Rx] Furosemide [Lasix] 40 mg PO DAILY #1 tablet 04/09/17 [Rx] Ipratropium-Albuterol Nebulize [Duoneb 0.5 mg-3 mg/3 ml Soln] 3 ml INHALATION RT -QID ampul.neb 04/09/17 [Rx] Naproxen Sodium [Aleve] 220 mg PO BID 02/19/18 [History] Palbociclib [Ibrance] 125 mg PO Q21D 02/19/18 [History] predniSONE See Taper PO DAILY #15 tab 02/22/18 [Rx] Follow up Appointment(s)/Referral(s): Saleem Roldan MD [Primary Care Provider] - 1-2 days (call office on friday for follow up appt) Adam Cabrera MD [STAFF PHYSICIAN] - 1 Week (call office on friday for follow up appt) MARILUZA Visiting Nurse, [NON-STAFF] - 1 Week Patient Instructions/Handouts: Prednisone (By mouth), COPD (Chronic Obstructive Pulmonary Disease) (DC), Basic Carbohydrate Counting (DC), Level 3 National Dysphagia Diet (DC) Activity/Diet/Wound Care/Special Instructions: Diet chopped consistent carb Activity as tolerated Discharge Disposition: HOME WITH HOME HEALTH SERVICES
--- NOTE | 2018-03-05 09:38 | CDI ---
Last Revision, March 2017 Documentation Clarification Form Date: 03/05/18 From: DESIREE Workman Phone: If you have question, contact Marcelle Mendez at [phone] M-F 8:30 am to 6pm Admit Date: 02/19/2018 2:51:00 PM Patient Name: Natalie Earl Visit Number: [id number] Discharge Date: 02/22/18 ATTENTION: The Clinical Documentation Specialists (CDI) and [facility] Coding Staff appreciate your assistance in clarifying documentation. Please respond to the clarification below the line at the bottom and electronically sign. The CDI & [facility] Coding staff will review the response and follow-up if needed. Please note: Queries are made part of the Legal Health Record. If you have any questions, please contact the author of this message via ITS. Flip Lockett MD Ms Earl is noted to have moderate bilateral pleural effusion. The effusions are noted to be persistent and also chronic in some of the documentation. Patient history/risk factors: Patient has a history of metastatic breast cancer with pulmonary involvement. She also has COPD, obstructive sleep apnea, CKD 2 and chronic hypoxic respiratory failure. Thoracentesis done in 2017 was negative for malignancy. Per Dr. 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 In your professional opinion, can you please clarify the etiology of the pleural effusion if known. Thank you for your time. Bilateral pleural effusion. Most likely malignant effusion due to underlying metastatic breast cancer. MTDD
== END 2018-02-22 14:51 | disposition home health service (06) | DRG 190 ==
LOC: EC 10:56 → 3NMEDONC 14:51
PROVIDERS: ADMIT Internal Medicine; ATTEND Internal Medicine
PROC: 0DC38ZZ Extirpation of Matter from Lower Esophagus, Via Natural or Artificial Opening Endoscopic (ICD-10-PCS; principal; 2018-02-20 21:28)
DX: J44.1 Chronic obstructive pulmonary disease with (acute) exacerbation (principal); D61.810 Antineoplastic chemotherapy induced pancytopenia; J96.21 Acute and chronic respiratory failure with hypoxia; I13.0 Hypertensive heart and chronic kidney disease with heart failure and stage 1 through stage 4 chronic kidney disease, or unspecified chronic kidney disease; C78.02 Secondary malignant neoplasm of left lung; J91.0 Malignant pleural effusion; C50.912 Malignant neoplasm of unspecified site of left female breast; F01.50 Vascular dementia, unspecified severity, without behavioral disturbance, psychotic disturbance, mood disturbance, and anxiety; T45.1X5A Adverse effect of antineoplastic and immunosuppressive drugs, initial encounter; E78.5 Hyperlipidemia, unspecified; K44.9 Diaphragmatic hernia without obstruction or gangrene; M81.0 Age-related osteoporosis without current pathological fracture; R29.6 Repeated falls; W19.XXXA Unspecified fall, initial encounter; I12.9 Hypertensive chronic kidney disease with stage 1 through stage 4 chronic kidney disease, or unspecified chronic kidney disease; E11.22 Type 2 diabetes mellitus with diabetic chronic kidney disease; N18.2 Chronic kidney disease, stage 2 (mild); G47.33 Obstructive sleep apnea (adult) (pediatric); I50.9 Heart failure, unspecified; M19.90 Unspecified osteoarthritis, unspecified site; E66.01 Morbid (severe) obesity due to excess calories; E27.9 Disorder of adrenal gland, unspecified; M85.80 Other specified disorders of bone density and structure, unspecified site; R32 Unspecified urinary incontinence; M10.9 Gout, unspecified; R07.89 Other chest pain; Z96.653 Presence of artificial knee joint, bilateral; T18.128A Food in esophagus causing other injury, initial encounter; D64.9 Anemia, unspecified; K21.9 Gastro-esophageal reflux disease without esophagitis; Z99.81 Dependence on supplemental oxygen; Z80.3 Family history of malignant neoplasm of breast; Z79.84 Long term (current) use of oral hypoglycemic drugs; Z79.1 Long term (current) use of non-steroidal anti-inflammatories (NSAID); Z79.83 Long term (current) use of bisphosphonates; Z79.51 Long term (current) use of inhaled steroids; Z79.899 Other long term (current) drug therapy; Z88.0 Allergy status to penicillin; Z91.81 History of falling; Z99.89 Dependence on other enabling machines and devices; Z17.0 Estrogen receptor positive status [ER+]; Z87.01 Personal history of pneumonia (recurrent); Z87.11 Personal history of peptic ulcer disease; Z68.30 Body mass index [BMI] 30.0-30.9, adult; Z90.12 Acquired absence of left breast and nipple; Z92.21 Personal history of antineoplastic chemotherapy; Z87.891 Personal history of nicotine dependence; Z90.710 Acquired absence of both cervix and uterus; Z98.84 Bariatric surgery status
CPT/HCPCS: 36415; 43247; 71046; 71250; 80048; 80053; 82550; 82553; 83036; 83735; 83880; 84484; 85025; 85610; 85730; 93005; 94640; 94760; 96374; 99285

== ENCOUNTER 2018-02-25 20:37 | Inpatient (IN) | payer MEDICARE ==
[2018-02-25] MEDS ORDERED: SODIUM CHLORIDE 0.9% 1,000 ML IV ONE (21:06)
[2018-02-25] MEDS ORDERED: MORPHINE SULFATE 4 MG/ML SYRINGE IVP STA (21:06)
--- NOTE | 2018-02-25 21:08 | ED ---
Fall HPI <John Holley - Last Filed: 02/25/18 22:48> - General Source: patient, EMS, RN notes reviewed, old records reviewed Mode of arrival: EMS <Inge Romero - Last Filed: 02/25/18 22:54> - General Chief Complaint: Fall Stated Complaint: FALL Time Seen by Provider: 02/25/18 20:42 - History of Present Illness Initial Comments: Patient is an 87-year-old female who presents emergency room stay with her son. Patient reports that she was in her house, opening some papers. She reports that she turned tripped and fell onto her right hip. Patient has history of breast cancer, and lung cancer. Patient reports that she was unable to bear weight over her hip. She arrives here via EMS. Patient states that she has had previous broken wrist and has seen Dr. Wan in the past. Patient states that she has no other complaints at this time. She does report she has normal sensation to her right lower extremity. (Inge Romero) - Related Data Home Medications Medication Instructions Recorded Confirmed Albuterol Sulfate [Ventolin HFA] 2 puff INHALATION RT-Q6H PRN 04/21/15 02/25/18 Allopurinol 300 mg PO DAILY 04/21/15 02/25/18 Atorvastatin [Lipitor] 20 mg PO HS 04/21/15 02/25/18 Metolazone 2.5 mg PO Q48H 04/21/15 02/25/18 Nitroglycerin Sl Tabs [Nitrostat] 0.4 mg PO Q5M PRN 04/21/15 02/25/18 Omeprazole 20 mg PO DAILY 04/21/15 02/25/18 sitaGLIPtin [Januvia] 100 mg PO DAILY 04/21/15 02/25/18 Alendronate Sodium [Fosamax] 70 mg PO MO 03/01/17 02/25/18 Naproxen Sodium [Aleve] 220 mg PO BID 02/19/18 02/25/18 Palbociclib [Ibrance] 125 mg PO Q21D 02/19/18 02/25/18 Previous Rx's Medication Instructions Recorded Budesonide-Formot 160-4.5 Mcg 2 puff INHALATION RT-BID puff 04/09/17 [Symbicort 160-4.5 Mcg Inhaler] Furosemide [Lasix] 40 mg PO DAILY #1 tablet 04/09/17 Ipratropium-Albuterol Nebulize 3 ml INHALATION RT-QID ampul.neb 04/09/17 [Duoneb 0.5 mg-3 mg/3 ml Soln] predniSONE See Taper PO DAILY #15 tab 02/22/18 Allergies Allergy/AdvReac Type Severity Reaction Status Date / Time Penicillins Allergy Rash/Hives Verified 02/25/18 21:16 Review of Systems ROS Other: All systems not noted in ROS Statement are negative. <John Holley - Last Filed: 02/25/18 22:48> ROS Other: All systems not noted in ROS Statement are negative. <Inge Romero - Last Filed: 02/25/18 22:54> ROS Statement: Those systems with pertinent positive or pertinent negative responses have been documented in the HPI. Past Medical History Past Medical History: Cancer, Chest Pain / Angina, Heart Failure, COPD, Diabetes Mellitus, GERD/Reflux, Hyperlipidemia, Hypertension, Memory Impairment , Osteoarthritis (OA), Respiratory Disorder, Sleep Apnea/CPAP/BIPAP Additional Past Medical History / Comment(s): O2 3 liters atc, GOUT, past hx of hemoptysis-LUNG CANCER, lt BREAST CA, osteoporosis,short term memory problems, past peptic ulcer disease, murmur. fell after thanksgiving -fx rt arm currently it's casteD. RIGHT PLEURAL EFFUSION. History of Any Multi-Drug Resistant Organisms: None Reported Past Surgical History: Section, Cholecystectomy, Hysterectomy, Joint Replacement, Tonsillectomy Additional Past Surgical History / Comment(s): LT BREAST BX,MASTECTOMY LEFT SIDE , JAMEL KNEE REPLACEMENT,several BRONCHOSCOPIES,PAST LAP BAND, EGD/COLONOSCOPY. RIGHT THORACENTESIS. Past Anesthesia/Blood Transfusion Reactions: No Reported Reaction Past Psychological History: No Psychological Hx Reported Smoking Status: Former smoker Past Alcohol Use History: None Reported Past Drug Use History: None Reported - Past Family History Mother Family Medical History: Cancer Additional Family Medical History / Comment(s): BREAST CANCER Father Family Medical History: No Reported History Additional Family Medical History / Comment(s): PT STATED HER DAD NEVER WENT TO . LIVED TILL HE WAS 98 YEARS OLD <Inge Romero - Last Filed: 02/25/18 22:54> General Exam <John Holley - Last Filed: 02/25/18 22:48> Limitations: physical limitation Head exam: Present: atraumatic, normocephalic, normal inspection Eye exam: Present: normal appearance, PERRL, EOMI. Absent: scleral icterus, conjunctival injection, periorbital swelling ENT exam: Present: normal exam Neck exam: Present: normal inspection. Absent: tenderness, meningismus, lymphadenopathy Respiratory exam: Absent: normal lung sounds bilaterally (Decreased lung sounds over the left lower lung base.), respiratory distress, wheezes, rales, rhonchi, stridor Cardiovascular Exam: Present: regular rate, normal rhythm, normal heart sounds. Absent: systolic murmur, diastolic murmur, rubs, gallop, clicks GI/Abdominal exam: Present: soft, normal bowel sounds. Absent: distended, tenderness, guarding, rebound, rigid Extremities exam: Present: normal inspection, full ROM, normal capillary refill. Absent: tenderness, pedal edema, joint swelling, calf tenderness Right Hip exam: Present: external rotation, shortening. Absent: normal inspection, full ROM Knee exam: Present: normal inspection, full ROM Lower Leg exam: Present: normal inspection, full ROM Ankle exam: Present: normal inspection, full ROM Neurovascular tendon exam: Present: no vascular compromise Gait: not tested/not observed Back exam: Present: normal inspection Neurological exam: Present: alert, oriented X3, CN II-XII intact Psychiatric exam: Present: normal affect, normal mood <Inge Romero - Last Filed: 02/25/18 22:54> - General Exam Comments Initial Comments: Pleasant 87-year-old female. Alert and oriented 3. (Inge Romero) Vital Signs 02/25/18 02/25/18 20:45 22:41 Temperature 99.7 F H Pulse Rate 70 65 Respiratory 18 18 Rate Blood Pressure 127/73 117/62 O2 Sat by Pulse 95 98 Oximetry Medical Decision Making - Lab Data Result diagrams: 02/25/18 21:19 02/25/18 21:19 <John Holley - Last Filed: 02/25/18 22:48> - Lab Data Result diagrams: 02/25/18 21:19 02/25/18 21:19 - Radiology Data Radiology results: report reviewed <Inge Romero - Last Filed: 02/25/18 22:54> - Medical Decision Making I saw this patient in conjunction with the physician child development assistant. I performed independent history and physical exam. Agree with case management. (John Holley) is an 87-year-old female with history of lung cancer, and breast cancer. She follows with Dr. wilcox. Patient presents today after an acute fall. She did not hit her head. She complains of right hip pain. She does have an external rotation and shortening of her right hip. Normal dorsalis pedis pulse and sensation in the foot. At this time patient's x-ray shows an acute right intertrochanteric fracture. She also has evidence of a left-sided pleural effusion. This has progressed from previous. Dr. Singh discussed the case with Dr. Davidson. We will admit the Patient with consults to Dr. Best as well as [facility] hospitalist. (Inge Romero) - Lab Data Lab Results 02/25/18 02/25/18 02/25/18 Range/Units 21:19 21:19 21:19 WBC 3.4 L (3.8-10.6) k/uL RBC 2.49 L (3.80-5.40) m/uL Hgb 9.6 L D (11.4-16.0) gm/dL Hct 29.0 L (34.0-46.0) % MCV 116.5 H (80.0-100.0) fL MCH 38.5 H (25.0-35.0) pg MCHC 33.1 (31.0-37.0) g/dL RDW 17.9 H (11.5-15.5) % Plt Count 172 D (150-450) k/uL Neutrophils % (Manual) 73 % Band Neutrophils % 2 % Lymphocytes % (Manual) 13 % Monocytes % (Manual) 7 % Eosinophils % (Manual) 2 % Myelocytes % 4 % Neutrophils # (Manual) 2.50 (1.3-7.7) k/uL Lymphocytes # (Manual) 0.44 L (1.0-4.8) k/uL Monocytes # (Manual) 0.24 (0-1.0) k/uL Eosinophils # (Manual) 0.07 (0-0.7) k/uL Myelocytes # (Manual) 0.14 H (0) k/uL Nucleated RBCs 1 H (0-0) /100 WBC Manual Slide Review Performed Toxic Vacuolation Present Large Platelets Present Polychromasia Present Poikilocytosis (manual Present Anisocytosis Slight Macrocytosis Marked PT 10.0 (9.0-12.0) sec INR 1.0 (<1.2) APTT 20.0 L (22.0-30.0) sec Sodium 133 L (137-145) mmol/L Potassium 3.9 (3.5-5.1) mmol/L Chloride 83 L (98-107) mmol/L Carbon Dioxide 40 H (22-30) mmol/L Anion Gap 10 mmol/L BUN 55 H (7-17) mg/dL Creatinine 1.52 H (0.52-1.04) mg/dL Est GFR (CKD-EPI)AfAm 36 (>60 ml/min/1.73 sqM) Est GFR (CKD-EPI)NonAf 31 (>60 ml/min/1.73 sqM) Glucose 149 H (74-99) mg/dL Calcium 9.2 (8.4-10.2) mg/dL 02/25/18 22:18 EKG shows sinus rhythm with first-degree AV block with PACs. Nonspecific ST and T-wave abnormality. Ventricular rate of 70 bpm. Pulse 224 ms. QRS duration 96 ms. QT QTc is 404/436 ms. (Inge Romero) - Radiology Data S x-ray shows consolidation atelectasis of the left lower lobe with volume loss. Atheromatous aorta. Cardiomegaly. No heart failure. Progression of the abnormality of the left lower lobe compared old exam. Hip x-ray shows acute intertrochanteric fracture of the right femur. 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
[2018-02-25 21:33] LABS: Anisocytosis Slight; MCH 38.5 pg (25.0-35.0); MCHC 33.1 g/dL (31.0-37.0); MCV 116.5 fL (80.0-100.0); Macrocytosis Marked; Mean Platelet Volume 8.6; RBC 2.49 m/uL (3.80-5.40); RDW 17.9 % (11.5-15.5); WBC 3.4 k/uL (3.8-10.6)
[2018-02-25 21:38] LABS: HGB 9.6 gm/dL (11.4-16.0); Platelet Count 172 k/uL (150-450)
[2018-02-25 21:51] LABS: Calcium 9.2 mg/dL (8.4-10.2); Potassium 3.9 mmol/L (3.5-5.1)
[2018-02-25 22:10] LABS: Band Neutrophils % 2 %; Eosinophils # (M) 0.07 k/uL (0-0.7); Lymphocytes # (M) 0.44 k/uL (1.0-4.8); Monocytes # (M) 0.24 k/uL (0-1.0); Myelocytes # (M) 0.14 k/uL (0); Myelocytes % 4 %; Neutrophils % (M) 73 %; Nucleated Red Blood Cells 1 /100 WBC (0-0); Total Cells Counted 200
[2018-02-25 22:11] LABS: Poikilocytosis (M) Present; Polychromasia Present; Toxic Vacuolation Present
[2018-02-25 22:12] LABS: Large Platelets Present
--- NOTE | 2018-02-25 22:14 | XR ---
EXAMINATION TYPE: Pelvis and right hip DATE OF EXAM: 02/25/2018 COMPARISON: NONE HISTORY: Fall. Hip pain TECHNIQUE: A single AP view of the pelvis is obtained. Two views of the right hip are obtained. FINDINGS: There is an acute intertrochanteric fracture of the right femur with coxa vera deformity. P elvic ring is intact. Sacroiliac joints appear intact. IMPRESSION: Acute intertrochanteric fracture right femur.
--- NOTE | 2018-02-25 22:16 | XR ---
EXAMINATION TYPE: XR chest 1V DATE OF EXAM: 02/25/2018 COMPARISON: NONE HISTORY: Fall. Hip pain TECHNIQUE: Single frontal view of the chest is obtained. FINDINGS: Heart is shifted to the left side. There is increased density at the left lung base. The r ight lung is fairly clear. There is no heart failure. Thoracic aorta is atheromatous. IMPRESSION: There is consolidation and atelectasis in the left lower lobe with volume loss. Atheroma tous aorta. Cardiomegaly. No heart failure. There is progression of the abnormality left lower lobe c ompared to old exam.
[2018-02-25] MEDS ORDERED: HYDROmorphone 1 MG/ML 1 ML SYRINGE IVP PRN (22:54)
[2018-02-25] MEDS ORDERED: ONDANSETRON 4 MG/2 ML VIAL IVP PRN (22:54)
[2018-02-25] MEDS ORDERED: NALOXONE 0.4 MG/ML 1 ML VIAL IV PRN (22:54)
[2018-02-25] MEDS ORDERED: MORPHINE SULFATE 4 MG/ML SYRINGE IV PRN (22:54)
[2018-02-25] MEDS ORDERED: IBUPROFEN 400 MG TAB PO PRN (22:54)
[2018-02-25] MEDS ORDERED: ALBUTEROL NEBULIZED 2.5 MG/3 ML INHALATION PRN (22:56)
[2018-02-25] MEDS ORDERED: NITROGLYCERIN SL TABS 0.4 MG TAB SUBLINGUAL PRN (22:56)
[2018-02-25] MEDS ORDERED: PALBOCICLIB 125 MG PO SCH (23:00)
[2018-02-25 23:04] LABS: Appearance,Urine Clear (Clear); Bilirubin,Urine Negative (Negative); Blood,Urine Negative (Negative); Color,Urine Yellow; Glucose,Urine (UA) Negative (Negative); Ketones,Urine Negative (Negative); Leukocyte Esterase,Urine Negative (Negative); Nitrite,Urine Negative (Negative); PH, Urine 5.5 (5.0-8.0); Protein,Urine Negative (Negative); Specific Gravity,Urine 1.011 (1.001-1.035)
[2018-02-25] MEDS: SODIUM CHLORIDE 0.9% 1,000 ML IV SCH (23:08)
[2018-02-26 00:55] VITALS: BMI 29.2
[2018-02-26] MEDS: ACETAMINOPHEN TAB 325 MG TAB PO PRN ×3 (00:56→21:00)
[2018-02-26 07:16] LABS: Glucose,Whole Blood 147 mg/dL (75-99)
[2018-02-26] MEDS: INSULIN ASPART 100 UNIT/ML 1 ML 10 ML VIAL SQ SCH ×4 (07:47→20:56)
[2018-02-26] MEDS ORDERED: FUROSEMIDE 40 MG TAB PO SCH (09:00)
[2018-02-26] MEDS ORDERED: NON-FORMULARY DRUG (Omeprazole [Omeprazole] 20 MG) PO SCH (09:00)
[2018-02-26] MEDS: IPRATROPIUM-ALBUTEROL 3 ML NEB INHALATION SCH ×4 (09:21→20:25)
[2018-02-26] MEDS: SYMBICORT 160-4.5 MCG INHALER INHALATION SCH ×2 (09:21→20:25)
--- NOTE | 2018-02-26 09:44 | P.HPOR ---
History of Present Illness H&P Date: 02/26/18 Chief Complaint: Right hip fracture This is an 87-year-old female who fell in her home last evening, sustaining injury to her right hip. She has history of metastatic breast cancer. On exam and x-ray in the emergency department she is found to have an intertrochanteric fracture of the right hip. She is admitted to our service for surgical intervention and care. She denies head injury. She has no other orthopedic complaints at this time. Past Medical History Past Medical History: Cancer, Chest Pain / Angina, Heart Failure, COPD, Diabetes Mellitus, GERD/Reflux, Hyperlipidemia, Hypertension, Memory Impairment , Osteoarthritis (OA), Respiratory Disorder, Sleep Apnea/CPAP/BIPAP Additional Past Medical History / Comment(s): O2 3 liters atc, GOUT, past hx of hemoptysis-LUNG CANCER, lt BREAST CA, osteoporosis,short term memory problems, past peptic ulcer disease, murmur. fell after thanksgiving -fx rt arm currently it's casteD. RIGHT PLEURAL EFFUSION. History of Any Multi-Drug Resistant Organisms: None Reported Past Surgical History: Section, Cholecystectomy, Hysterectomy, Joint Replacement, Tonsillectomy Additional Past Surgical History / Comment(s): LT BREAST BX,MASTECTOMY LEFT SIDE , JAMEL KNEE REPLACEMENT,several BRONCHOSCOPIES,PAST LAP BAND, EGD/COLONOSCOPY. RIGHT THORACENTESIS. Past Anesthesia/Blood Transfusion Reactions: No Reported Reaction Past Psychological History: No Psychological Hx Reported Additional Psychological History / Comment(s): PT'S SON LIVES WITH PT. PT USES CANE OR WALKER WHEN UP. ALSO HAS HOME [address]/C, CPAP MACHINE. NO HOME CARE SERVICES. Smoking Status: Former smoker Past Alcohol Use History: None Reported Additional Past Alcohol Use History / Comment(s): SMOKED FOR A YEAR AGE 26-25, Past Drug Use History: None Reported - Past Family History Mother Family Medical History: Cancer Additional Family Medical History / Comment(s): BREAST CANCER Father Family Medical History: No Reported History Additional Family Medical History / Comment(s): PT STATED HER DAD NEVER WENT TO . LIVED TILL HE WAS 98 YEARS OLD Medications and Allergies Home Medications Medication Instructions Recorded Confirmed Type Albuterol Sulfate [Ventolin HFA] 2 puff INHALATION RT-Q6H PRN 04/21/15 02/25/18 History Allopurinol 300 mg PO DAILY 04/21/15 02/25/18 History Atorvastatin [Lipitor] 20 mg PO HS 04/21/15 02/25/18 History Metolazone 2.5 mg PO Q48H 04/21/15 02/25/18 History Nitroglycerin Sl Tabs [Nitrostat] 0.4 mg PO Q5M PRN 04/21/15 02/25/18 History Omeprazole 20 mg PO DAILY 04/21/15 02/25/18 History sitaGLIPtin [Januvia] 100 mg PO DAILY 04/21/15 02/25/18 History Alendronate Sodium [Fosamax] 70 mg PO MO 03/01/17 02/25/18 History Budesonide-Formot 160-4.5 Mcg 2 puff INHALATION RT-BID puff 04/09/17 02/25/18 Rx [Symbicort 160-4.5 Mcg Inhaler] Furosemide [Lasix] 40 mg PO DAILY #1 tablet 04/09/17 02/25/18 Rx Ipratropium-Albuterol Nebulize 3 ml INHALATION RT-QID ampul.neb 04/09/17 Rx [Duoneb 0.5 mg-3 mg/3 ml Soln] Naproxen Sodium [Aleve] 220 mg PO BID 02/19/18 02/25/18 History Palbociclib [Ibrance] 125 mg PO Q21D 02/19/18 02/25/18 History predniSONE See Taper PO DAILY #15 tab 02/22/18 02/25/18 Rx Allergies Allergy/AdvReac Type Severity Reaction Status Date / Time Penicillins Allergy Rash/Hives Verified 02/25/18 21:16 Physical Examination This is a pleasant 87-year-old female in no acute distress. She is alert and oriented 3. Her family is present at bedside. Exam of the head neck reveal no obvious deformity. She has full cervical spine motion without difficulty. Exam of the lower extremities reveals no obvious deformity. There is slight shortening of the right leg. Pain with any motion of the right hip. She has full foot and ankle motion bilaterally. Neurovascular status to the lower extremities is intact. The remainder of her musculoskeletal exam is unremarkable. Results X-rays of the right hip and pelvis reveal a four-part intertrochanteric fracture of the right hip. - Labs Labs: Abnormal Lab Results - Last 24 Hours (Table) 02/25/18 02/25/18 02/25/18 Range/Units 21:19 21:19 21:19 WBC 3.4 L (3.8-10.6) k/uL RBC 2.49 L (3.80-5.40) m/uL Hgb 9.6 L D (11.4-16.0) gm/dL Hct 29.0 L (34.0-46.0) % MCV 116.5 H (80.0-100.0) fL MCH 38.5 H (25.0-35.0) pg RDW 17.9 H (11.5-15.5) % Lymphocytes # (Manual) 0.44 L (1.0-4.8) k/uL Myelocytes # (Manual) 0.14 H (0) k/uL Nucleated RBCs 1 H (0-0) /100 WBC APTT 20.0 L (22.0-30.0) sec Sodium 133 L (137-145) mmol/L Chloride 83 L (98-107) mmol/L Carbon Dioxide 40 H (22-30) mmol/L BUN 55 H (7-17) mg/dL Creatinine 1.52 H (0.52-1.04) mg/dL Glucose 149 H (74-99) mg/dL POC Glucose (mg/dL) (75-99) mg/dL 02/26/18 Range/Units 07:04 WBC (3.8-10.6) k/uL RBC (3.80-5.40) m/uL Hgb (11.4-16.0) gm/dL Hct (34.0-46.0) % MCV (80.0-100.0) fL MCH (25.0-35.0) pg RDW (11.5-15.5) % Lymphocytes # (Manual) (1.0-4.8) k/uL Myelocytes # (Manual) (0) k/uL Nucleated RBCs (0-0) /100 WBC APTT (22.0-30.0) sec Sodium (137-145) mmol/L Chloride (98-107) mmol/L Carbon Dioxide (22-30) mmol/L BUN (7-17) mg/dL Creatinine (0.52-1.04) mg/dL Glucose (74-99) mg/dL POC Glucose (mg/dL) 147 H (75-99) mg/dL H & H 02/25/18 Range/Units 21:19 Hgb 9.6 L D (11.4-16.0) gm/dL Hct 29.0 L (34.0-46.0) % Coagulation 02/25/18 Range/Units 21:19 INR 1.0 (<1.2) Result Diagrams: 02/25/18 21:19 02/25/18 21:19 Assessment and Plan (1) Breast cancer metastasized to lung Current Visit: Yes Status: Acute Code(s): C50.919 - MALIGNANT NEOPLASM OF UNSP SITE OF UNSPECIFIED FEMALE BREAST SNOMED Code(s): 418605437 (2) Closed right hip fracture Current Visit: Yes Status: Acute Code(s): S72.001A - FRACTURE OF UNSP PART OF NECK OF RIGHT FEMUR, INIT SNOMED Code(s): 303055455 (3) Fall Current Visit: Yes Status: Acute Code(s): W19.XXXA - UNSPECIFIED FALL, INITIAL ENCOUNTER SNOMED Code(s): 1616903 Plan: The clinical and x-ray findings are discussed with the patient and her family. It is recommended she undergo closed reduction with insertion of intertrochanteric nail of the right hip. The procedures been discussed in detail including the possible risks and outcomes of surgery. It is recommended she go to inpatient rehab postoperatively. We're planning surgery for tomorrow if cleared medically.
[2018-02-26] MEDS: PANTOPRAZOLE 40 MG/10 ML VIAL IV SCH (10:58)
[2018-02-26] MEDS: ALLOPURINOL 300 MG TAB PO SCH (10:59)
[2018-02-26] MEDS: LINAGLIPTIN 5 MG TABLET PO SCH (10:59)
--- NOTE | 2018-02-26 11:06 | P.CONS ---
History of Present Illness - Reason for Consult Consult date: 02/26/18 Hip fracture. Metastatic breast cancer - History of Present Illness Ms Earl is an WF, initially seen in consult at [facility] on 06/16/13. She had been having progressive SOB since 03/19, and had then developed hemoptysis leading to this admission. A bronchoscpy revealed a left mainstem endobronchial tumor with narrowing. The biopsy was consistent with a breast primary, with initial non-diagnostic stains revealing ER positivity. Formal ER/MA and HER 2 Cinthya testing was sent for, and was pendng at the time of discharge. The pt had had a h/o breast cancer, infiltrating ductal, ER/MA positive, Her 2 Cinthya 2+ by IHC, but negative by FISH, diagnosed in 2010. She had a lumpectomy, and then a mastectomy due to positive margins, with SN biopsy. It was a T2, N0 tumor, and the pt did not have any adjuvant therapy. The biopsy from the lung was proven to be recurrence of her breast ca. She was started on Anastrozole at discharge, and continued on that at her 1st OV visit. She had had trouble swallowing and had a ba swallow and then an EGD on 08/02/13. No major abnormality was found. Her swallowing did improve with small portions. However she went to the ER on 09/04/13 with inability to swallow, and had a piece of meat, which was stuck, removed endoscopically. Her SOB is stable. She continues on home O2, but she had been trying to stay off it for as long as possible. However that seemed to lead to more symptoms, and she is now mostly using it ATC. In 07/20, her Ca++ was increased to 2/day due to drop in bone density. She was started on Fosamax in 07/21 due to progressive osteopenia. She was coughing up blood in 04/22, leading to a bronchoscopy by Dr Cabrera on 04/24/15. This revealed mucosal irregularity in the distal left mainstem bronchus. Biopsies were negative for cancer. She improved with treatment for bronchitis. Her CT scan in 02/20 showed increase in size of her lung mass. Bronchoscopy was done on 03/06/16, showing mucosal irregularities in the distal left mainstem bronchus. However BAL and biopsies were negative. Ct was reviewed personally with Dr Cabrera, and the case discussed. In retrospect, the appearance appeared to be mostly stable. Her tumor markers in 02/20 did show some increase. Restaging CT and bone scan were done on 04/22/16. This revealed a pleural effusion, stable left lung mass, and possible slight progression in rt breast masses and adrenal masses. She had a thoracentesis on 05/06/16, with cytology negative, though protein was in the exudate range. CT in 07/22 showed stable lung and adrenal lesion, but possible progression in the breast and SQ tissues. Tumor markers also showed some progression. She was changed to Ibrance and Faslodex in early 08/21. She started a new cycle on 04/03/17, but was admitted the day after with pneumonia. She was transferred to [facility] on discharge, and came back home on . She therefore did not take any Ibrance after D 1 in late 04/03, but resumed it , and Faslodex after returning home. She accidentally fell and broke her wrist on 03/01/17, treated with casting. she is c/o persistent mid back pain since 04/24. CT of the spine showed extensive DJD. She was noted to have diminished recall in 07/23, with CT brain showing no evidence of mets. 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 Ms. Beltran Breast Cancer has been stable on Ibrance and Faslodex for close to a year. She was supposed to start a new cycle on 02/20/18, but because of her cytopenias (worsening from previous cycles) she was advised to be re-evaluated and have her CBC rechecked on 02/27/18 in the office. She was however admitted last week with COPD exacerbation, and required G-CSF for low WBC. The patient was discharged home after improvement. She states that she had not started the Ibrance yet. She unfortunately accidentally tripped at home and fell on her side. She was not using her walker. She was having increased pain and difficulty in bearing weight on the right and was therefore brought to the emergency room where she was found to have a right hip fracture. She was therefore admitted for further management , and consult placed Review of Systems Constitutional: Reports fatigue, Reports weakness Eyes: denies blurred vision, denies pain Ears: bilateral: decreased hearing Ears, nose, mouth and throat: Denies headache, Denies sore throat Cardiovascular: Reports dyspnea on exertion Respiratory: Reports dyspnea Gastrointestinal: Denies abdominal pain, Denies diarrhea, Denies nausea, Denies vomiting Genitourinary: Denies dysuria, Denies hematuria Menstruation: Reports postmenopausal Musculoskeletal: Reports frequent falls, Reports gait dysfunction, Reports shooting leg pain Musculoskeletal: right: hip pain Integumentary: Reports as per HPI, Reports lesions (Skin metastasis have regressed on current regimen) Neurological: Reports gait dysfunction, Reports memory loss, Reports weakness Psychiatric: Reports memory loss Endocrine: Reports fatigue Hematologic/Lymphatic: Reports as per HPI Past Medical History Past Medical History: Cancer, Chest Pain / Angina, Heart Failure, COPD, Diabetes Mellitus, GERD/Reflux, Hyperlipidemia, Hypertension, Memory Impairment , Osteoarthritis (OA), Respiratory Disorder, Sleep Apnea/CPAP/BIPAP Additional Past Medical History / Comment(s): O2 3 liters atc, GOUT, past hx of hemoptysis-LUNG CANCER, lt BREAST CA, osteoporosis,short term memory problems, past peptic ulcer disease, murmur. fell after thanksgiving -fx rt arm currently it's casteD. RIGHT PLEURAL EFFUSION. History of Any Multi-Drug Resistant Organisms: None Reported Past Surgical History: Section, Cholecystectomy, Hysterectomy, Joint Replacement, Tonsillectomy Additional Past Surgical History / Comment(s): LT BREAST BX,MASTECTOMY LEFT SIDE , JAMEL KNEE REPLACEMENT,several BRONCHOSCOPIES,PAST LAP BAND, EGD/COLONOSCOPY. RIGHT THORACENTESIS. Past Anesthesia/Blood Transfusion Reactions: No Reported Reaction Past Psychological History: No Psychological Hx Reported Additional Psychological History / Comment(s): PT'S SON LIVES WITH PT. PT USES CANE OR WALKER WHEN UP. ALSO HAS HOME 02 [address] L[address] [place]/C, CPAP MACHINE. NO HOME CARE SERVICES. Smoking Status: Former smoker Past Alcohol Use History: None Reported Additional Past Alcohol Use History / Comment(s): SMOKED FOR A YEAR AGE [age], Past Drug Use History: None Reported - Past Family History Mother Family Medical History: Cancer Additional Family Medical History / Comment(s): BREAST CANCER Father Family Medical History: No Reported History Additional Family Medical History / Comment(s): PT STATED HER DAD NEVER WENT TO . LIVED TILL HE WAS 98 YEARS OLD Medications and Allergies Home Medications Medication Instructions Recorded Confirmed Type Albuterol Sulfate [Ventolin HFA] 2 puff INHALATION RT-Q6H PRN 04/21/15 02/25/18 History Allopurinol 300 mg PO DAILY 04/21/15 02/25/18 History Atorvastatin [Lipitor] 20 mg PO HS 04/21/15 02/25/18 History Metolazone 2.5 mg PO Q48H 04/21/15 02/25/18 History Nitroglycerin Sl Tabs [Nitrostat] 0.4 mg PO Q5M PRN 04/21/15 02/25/18 History Omeprazole 20 mg PO DAILY 04/21/15 02/25/18 History sitaGLIPtin [Januvia] 100 mg PO DAILY 04/21/15 02/25/18 History Alendronate Sodium [Fosamax] 70 mg PO MO 03/01/17 02/25/18 History Budesonide-Formot 160-4.5 Mcg 2 puff INHALATION RT-BID puff 04/09/17 02/25/18 Rx [Symbicort 160-4.5 Mcg Inhaler] Furosemide [Lasix] 40 mg PO DAILY #1 tablet 04/09/17 02/25/18 Rx Ipratropium-Albuterol Nebulize 3 ml INHALATION RT-QID ampul.neb 04/09/17 Rx [Duoneb 0.5 mg-3 mg/3 ml Soln] Naproxen Sodium [Aleve] 220 mg PO BID 02/19/18 02/25/18 History Palbociclib [Ibrance] 125 mg PO Q21D 02/19/18 02/25/18 History predniSONE See Taper PO DAILY #15 tab 02/22/18 02/25/18 Rx Allergies Allergy/AdvReac Type Severity Reaction Status Date / Time Penicillins Allergy Rash/Hives Verified 02/25/18 21:16 Physical Exam Vitals: Vital Signs Temp Pulse Pulse Pulse Resp BP BP 02/26/18 09:43 60 02/26/18 09:22 60 02/26/18 07:53 16 02/26/18 07:51 97.6 F 60 16 98/57 02/26/18 00:46 97.5 F L 64 15 122/58 02/26/18 00:39 98.1 F 75 19 02/25/18 22:41 65 18 117/62 02/25/18 20:45 99.7 F H 70 18 127/73 Pulse Ox 02/26/18 09:43 02/26/18 09:22 02/26/18 07:53 02/26/18 07:51 98 02/26/18 00:46 100 02/26/18 00:39 02/25/18 22:41 98 02/25/18 20:45 95 Intake and Output 02/25/18 02/26/18 02/26/18 22:59 06:59 14:59 Intake Total 765 Output Total 550 Balance 215 Intake: Intake, IV Titration 525 Amount Sodium Chloride 0.9% 1, 525 000 ml @ 75 mls/hr IV . [id number] [facility] Rx#:[id number] Oral 240 Output: Urine 550 Uretheral (Bernabe) 550 Other: Voiding Method Indwelling Catheter Indwelling Catheter # Voids 3 Weight 72.575 kg 72.575 kg - Constitutional General appearance: no acute distress - EENT Eyes: EOMI, PERRLA ENT: normal oropharynx - Neck Neck: no lymphadenopathy Thyroid: bilateral: normal size - Respiratory Respiratory: bilateral: diminished (Most prominent left lower zone) - Cardiovascular Rhythm: regular Heart sounds: normal: S1, S2 - Gastrointestinal General gastrointestinal: normal bowel sounds, soft - Integumentary Integumentary: normal - Neurologic Neurologic: CNII-XII intact - Musculoskeletal Musculoskeletal: generalized weakness, right sided weakness (Right lower extremity, due to pain) - Psychiatric Psychiatric: A&O x's 3, appropriate affect Results CBC & Chem 7: 02/25/18 21:19 02/25/18 21:19 Labs: Abnormal Lab Results - Last 24 Hours (Table) 02/25/18 02/25/18 02/25/18 Range/Units 21:19 21:19 21:19 WBC 3.4 L (3.8-10.6) k/uL RBC 2.49 L (3.80-5.40) m/uL Hgb 9.6 L D (11.4-16.0) gm/dL Hct 29.0 L (34.0-46.0) % MCV 116.5 H (80.0-100.0) fL MCH 38.5 H (25.0-35.0) pg RDW 17.9 H (11.5-15.5) % Lymphocytes # (Manual) 0.44 L (1.0-4.8) k/uL Myelocytes # (Manual) 0.14 H (0) k/uL Nucleated RBCs 1 H (0-0) /100 WBC APTT 20.0 L (22.0-30.0) sec Sodium 133 L (137-145) mmol/L Chloride 83 L (98-107) mmol/L Carbon Dioxide 40 H (22-30) mmol/L BUN 55 H (7-17) mg/dL Creatinine 1.52 H (0.52-1.04) mg/dL Glucose 149 H (74-99) mg/dL POC Glucose (mg/dL) (75-99) mg/dL 02/26/18 Range/Units 07:04 WBC (3.8-10.6) k/uL RBC (3.80-5.40) m/uL Hgb (11.4-16.0) gm/dL Hct (34.0-46.0) % MCV (80.0-100.0) fL MCH (25.0-35.0) pg RDW (11.5-15.5) % Lymphocytes # (Manual) (1.0-4.8) k/uL Myelocytes # (Manual) (0) k/uL Nucleated RBCs (0-0) /100 WBC APTT (22.0-30.0) sec Sodium (137-145) mmol/L Chloride (98-107) mmol/L Carbon Dioxide (22-30) mmol/L BUN (7-17) mg/dL Creatinine (0.52-1.04) mg/dL Glucose (74-99) mg/dL POC Glucose (mg/dL) 147 H (75-99) mg/dL Comments: Report of hip x-ray reviewed Chest x-ray: report reviewed Assessment and Plan (1) Closed right hip fracture Narrative/Plan: This was accidental, due to fall. The patient states that she got her feet "tangled up"and tripped. She was not using her walker. She does have somewhat chronic gait dysfunction, and has had a previous fall consequently last , when she had broken wrist. The patient has been seen by orthopedic surgery, and surgical intervention is planned. From our standpoint she is okay for the planned procedure. Though she has metastatic disease, it has been well controlled on her current regimen with no recent evidence of progression. She was neutropenic previously because of her regimen, but white blood count is in a safe range as Ibrance has been on hold now for a couple of weeks. We will continue to monitor counts and supplement as needed. Given her overall decreased activity, and history of metastatic cancer, she will need aggressive DVT prophylaxis post surgery. Due to her multiple other medical problems, including oxygen-dependent COPD, she will need clearance from other specialties, including IM, and pulmonary medicine Current Visit: Yes Status: Acute Code(s): S72.001A - FRACTURE OF UNSP PART OF NECK OF RIGHT FEMUR, INIT SNOMED Code(s): 897406099 (2) Bicytopenia Narrative/Plan: This is due to antineoplastic therapy. WBC is actually recovered with holding of her Ibrance, and is in a safe range. Hemoglobin is also in a safe range. Continue to monitor and supplement as needed Current Visit: No Status: Acute Priority: Medium Code(s): D75.89 - OTHER SPECIFIED DISEASES OF BLOOD AND BLOOD-FORMING ORGANS SNOMED Code(s): 460657981 (3) Breast cancer metastasized to lung Narrative/Plan: The patient has been doing well on her current regimen. As noted, Ibrance is currently on hold. We will keep holding this to the patient is sufficiently recovered from her surgery, to reduce risk of cytopenias and infections. She can continue her Faslodex as an outpatient, as that does not have any marrow suppressive effects Current Visit: Yes Status: Acute Code(s): C50.919 - MALIGNANT NEOPLASM OF UNSP SITE OF UNSPECIFIED FEMALE BREAST SNOMED Code(s): 477411354
[2018-02-26 12:14] LABS: Glucose,Whole Blood 101 mg/dL (75-99)
[2018-02-26] MEDS: SODIUM CHLORIDE 0.9% 1,000 ML IV SCH (12:18)
--- NOTE | 2018-02-26 16:52 | P.CONS ---
History of Present Illness - History of Present Illness this is a pleasant 87 years old female with past medical history ofCOPD, coronary artery disease, congestive heart failure, diabetes mellitus, type II. GERD, hyperlipidemia, hypertension, memory impairment, osteoarthritis, chronic hypoxic respiratory failure on home oxygen, history of gout. Presents because after she fell, patient denies syncope/presyncope and no dizziness. She states that she lost control and tripped. She denies any trauma. However she has pain in the right hip area. X-ray shows right femoral fracture. Chest x-ray showing increased left lower lobe density.WBC3.4,hemoglobin 9.6. Sodium 133. Creatinineis slightly elevated at 1.5. Review of Systems CONSTITUTIONAL: No fever, no malaise, no fatigue. HEENT: No recent visual problems or hearing problems. Denied any sore throat. CARDIOVASCULAR: No orthopnea, PND, no palpitations, no syncope. PULMONARY: No shortness of breath, no cough, no hemoptysis. GASTROINTESTINAL: No diarrhea, no nausea, no vomiting, no abdominal pain. Normoactive bowel sounds. NEUROLOGICAL: No headaches, no weakness, no numbness. HEMATOLOGICAL: Denies any bleeding or petechiae. GENITOURINARY: Denies any burning micturition, frequency, or urgency. MUSCULOSKELETAL/RHEUMATOLOGICAL: Denies any joint pain, swelling, or any muscle pain. ENDOCRINE: Denies any polyuria or polydipsia. Past Medical History Past Medical History: Cancer, Chest Pain / Angina, Heart Failure, COPD, Diabetes Mellitus, GERD/Reflux, Hyperlipidemia, Hypertension, Memory Impairment , Osteoarthritis (OA), Respiratory Disorder, Sleep Apnea/CPAP/BIPAP Additional Past Medical History / Comment(s): O2 3 liters atc, GOUT, past hx of hemoptysis-LUNG CANCER, lt BREAST CA, osteoporosis,short term memory problems, past peptic ulcer disease, murmur. fell after thanksgiving -fx rt arm currently it's casteD. RIGHT PLEURAL EFFUSION. History of Any Multi-Drug Resistant Organisms: None Reported Past Surgical History: Section, Cholecystectomy, Hysterectomy, Joint Replacement, Tonsillectomy Additional Past Surgical History / Comment(s): LT BREAST BX,MASTECTOMY LEFT SIDE , JAMEL KNEE REPLACEMENT,several BRONCHOSCOPIES,PAST LAP BAND, EGD/COLONOSCOPY. RIGHT THORACENTESIS. Past Anesthesia/Blood Transfusion Reactions: No Reported Reaction Past Psychological History: No Psychological Hx Reported Additional Psychological History / Comment(s): PT'S SON LIVES WITH PT. PT USES CANE OR WALKER WHEN UP. ALSO HAS HOME 02 [address], CPAP MACHINE. NO HOME CARE SERVICES. Smoking Status: Former smoker Past Alcohol Use History: None Reported Additional Past Alcohol Use History / Comment(s): SMOKED FOR A YEAR AGE [age], Past Drug Use History: None Reported - Past Family History Mother Family Medical History: Cancer Additional Family Medical History / Comment(s): BREAST CANCER Father Family Medical History: No Reported History Additional Family Medical History / Comment(s): PT STATED HER DAD NEVER WENT TO . LIVED TILL HE WAS 98 YEARS OLD Medications and Allergies Home Medications Medication Instructions Recorded Confirmed Type RX: Albuterol Sulfate [Ventolin 2 puff INHALATION RT-Q6H PRN 04/21/15 02/25/18 History HFA] RX: Allopurinol 300 mg PO DAILY 04/21/15 02/25/18 History RX: Atorvastatin [Lipitor] 20 mg PO HS 04/21/15 02/25/18 History RX: Metolazone 2.5 mg PO Q48H 04/21/15 02/25/18 History RX: Nitroglycerin Sl Tabs 0.4 mg PO Q5M PRN 04/21/15 02/25/18 History [Nitrostat] RX: Omeprazole 20 mg PO DAILY 04/21/15 02/25/18 History RX: sitaGLIPtin [Januvia] 100 mg PO DAILY 04/21/15 02/25/18 History RX: Alendronate Sodium [Fosamax] 70 mg PO MO 03/01/17 02/25/18 History RX: Budesonide-Formot 160-4.5 Mcg 2 puff INHALATION RT-BID puff 04/09/17 Rx [Symbicort 160-4.5 Mcg Inhaler] RX: Furosemide [Lasix] 40 mg PO DAILY #1 tablet 04/09/17 02/25/18 Rx RX: Ipratropium-Albuterol Nebulize 3 ml INHALATION RT-QID ampul.neb 04/09/17 Rx [Duoneb 0.5 mg-3 mg/3 ml Soln] RX: Naproxen Sodium [Aleve] 220 mg PO BID 02/19/18 02/25/18 History RX: Palbociclib [Ibrance] 125 mg PO Q21D 02/19/18 02/25/18 History RX: predniSONE See Taper PO DAILY #15 tab 02/22/18 02/25/18 Rx Allergies Allergy/AdvReac Type Severity Reaction Status Date / Time Penicillins Allergy Rash/Hives Verified 02/25/18 21:16 Physical Exam Vitals: Vital Signs Temp Pulse Pulse Pulse Resp BP BP 02/26/18 10:56 67 150/68 02/26/18 09:43 60 02/26/18 09:22 60 02/26/18 07:53 16 02/26/18 07:51 97.6 F 60 16 98/57 02/26/18 00:46 97.5 F L 64 15 122/58 02/26/18 00:39 98.1 F 75 19 02/25/18 22:41 65 18 117/62 02/25/18 20:45 99.7 F H 70 18 127/73 Pulse Ox 02/26/18 10:56 02/26/18 09:43 02/26/18 09:22 02/26/18 07:53 02/26/18 07:51 98 02/26/18 00:46 100 02/26/18 00:39 02/25/18 22:41 98 02/25/18 20:45 95 Intake and Output 02/26/18 02/26/18 02/26/18 06:59 14:59 22:59 Intake Total 765 320 Output Total 550 Balance 215 320 Intake: Intake, IV Titration 525 Amount Sodium Chloride 0.9% 1, 525 000 ml @ 75 mls/hr IV . [id number] [facility] Rx#:[id number] Oral 240 320 Output: Urine 550 Uretheral (Bernabe) 550 Other: Voiding Method Indwelling Catheter Indwelling Catheter # Voids 3 Weight 72.575 kg GENERAL: The patient is alert and oriented x3, not in any acute distress. Well developed, well nourished. HEENT: Pupils are round and equally reacting to light. EOMI. No scleral icterus. No conjunctival pallor. Normocephalic, atraumatic. No pharyngeal erythema. No thyromegaly. CARDIOVASCULAR: S1 and S2 present. No murmurs, rubs, or gallops. PULMONARY: Chest is clear to auscultation, no wheezing or crackles. ABDOMEN: Soft, nontender, nondistended, normoactive bowel sounds. No palpable organomegaly. MUSCULOSKELETAL: No joint swelling or deformity. -EXTREMITIES: No cyanosis, clubbing, or pedal edema.right leg is shortened and externally rotated NEUROLOGICAL: Gross neurological examination did not reveal any focal deficits. SKIN: No rashes. Results CBC & Chem 7: 02/25/18 21:19 02/25/18 21:19 Labs: Abnormal Lab Results - Last 24 Hours (Table) 02/25/18 02/25/18 02/25/18 Range/Units 21:19 21: 21:19 WBC 3.4 L (3.8-10.6) k/uL RBC 2.49 L (3.80-5.40) m/uL Hgb 9.6 L D (11.4-16.0) gm/dL Hct 29.0 L (34.0-46.0) % MCV 116.5 H (80.0-100.0) fL MCH 38.5 H (25.0-35.0) pg RDW 17.9 H (11.5-15.5) % Lymphocytes # (Manual) 0.44 L (1.0-4.8) k/uL Myelocytes # (Manual) 0.14 H (0) k/uL Nucleated RBCs 1 H (0-0) /100 WBC APTT 20.0 L (22.0-30.0) sec Sodium 133 L (137-145) mmol/L Chloride 83 L (98-107) mmol/L Carbon Dioxide 40 H (22-30) mmol/L BUN 55 H (7-17) mg/dL Creatinine 1.52 H (0.52-1.04) mg/dL Glucose 149 H (74-99) mg/dL POC Glucose (mg/dL) (75-99) mg/dL 02/26/18 02/26/18 Range/Units 07:04 11:50 WBC (3.8-10.6) k/uL RBC (3.80-5.40) m/uL Hgb (11.4-16.0) gm/dL Hct (34.0-46.0) % MCV (80.0-100.0) fL MCH (25.0-35.0) pg RDW (11.5-15.5) % Lymphocytes # (Manual) (1.0-4.8) k/uL Myelocytes # (Manual) (0) k/uL Nucleated RBCs (0-0) /100 WBC APTT (22.0-30.0) sec Sodium (137-145) mmol/L Chloride (98-107) mmol/L Carbon Dioxide (22-30) mmol/L BUN (7-17) mg/dL Creatinine (0.52-1.04) mg/dL Glucose (74-99) mg/dL POC Glucose (mg/dL) 147 H 101 H (75-99) mg/dL Assessment and Plan Assessment: status post tripping and falling without syncope or presyncope Right hip fracture history of heart failure and coronary artery disease acute kidney injury on the top of chronic kidney disease stage III Memory impairment hyperlipidemia Type 2 diabetes mellitus Osteoarthritis COPD, not in acute exacerbation Plan: this is a pleasant 87 years old female who presents with a fall and right hip fracture. Patient is is been evaluated by orthopedic DD team for possible hip arthroplasty. Patient has extensive history of heart disease. Will call cardiology consult for preop evaluation.pulmonary consult. Labs and medication were reviewed.. Continue same treatment. Continue with symptomatic treatment. Resume home medication. Monitor lytes and vitals. pain management as per primary team. DVT prophylaxis as per primary team. DVT and GI prophylaxis. Further recommendations of the clinical course of the patient DVT prophylaxis: Subcutaneous heparin GI Prophylaxis: Pepcid PT/OT: Pending Prognosis is guarded thank you for consulting us.
[2018-02-26 17:14] LABS: Glucose,Whole Blood 205 mg/dL (75-99)
[2018-02-26 20:27] LABS: Glucose,Whole Blood 156 mg/dL (75-99)
[2018-02-26] MEDS: FAMOTIDINE 20 MG/2 ML VIAL IV SCH (21:00)
[2018-02-26] MEDS: HEPARIN SODIUM,PORCINE 5,000 UNIT/ML 1 ML VIAL SQ SCH (21:00)
[2018-02-26] MEDS: ATORVASTATIN 20 MG TAB PO SCH (21:00)
[2018-02-27] MEDS: SODIUM CHLORIDE 0.9% 1,000 ML IV SCH ×2 (03:15→10:41)
[2018-02-27] MEDS: HEPARIN SODIUM,PORCINE 5,000 UNIT/ML 1 ML VIAL SQ SCH ×2 (06:46→21:49)
--- NOTE | 2018-02-27 07:16 | CONS ---
CONSULTATION Mrs. Earl is an 87-year-old female who tripped and fell at home and had a fractured hip involving the right hip. Cardiology consultation was requested for preoperative evaluation. The patient carries the diagnosis of CHF although she has been stable and has been seen in the past by Dr. Vaz. She has no history of active ischemic heart disease. She was in the hospital in March of last year and at that time underwent an echocardiogram that showed a preserved systolic function with ejection fraction of 50% to 55% with moderate severe pulmonary hypertension. She has a history of metastatic breast cancer and had pleural effusion during previous admission. The patient denies any chest pain. She has some peripheral edema. She has no dizziness or palpitation. No syncope. She has no history of malignant arrhythmia. She has a history of chronic obstructive lung disease. Her coronary risk factors are positive for diabetes. She is a nonsmoker. She is hyperlipidemic. MEDICATIONS: Her medications include Januvia, Ibrance, omeprazole, Aleve, DuoNeb, Lasix 40 mg daily, Symbicort, Lipitor 20 mg daily, Fosamax. REVIEW OF SYSTEMS: RESPIRATORY SYSTEM: She has history of dyspnea on exertion, history of wheezing. GI SYSTEM: No recent GI bleeding. No peptic ulcer disease. SYSTEM: No dysuria or hematuria. NERVOUS SYSTEM: No stroke or seizure. PHYSICAL EXAMINATION: She is an 87-year-old female, alert, oriented, in no apparent distress. Blood pressure 150/60 with the heart rate in 60s. HEAD: Normocephalic. EYES: Sclerae anicteric. NECK: Good upstroke. No bruit. No jugular venous distention. LUNGS: Clear to auscultation. HEART: Regular rate and rhythm. S1, S2. No S3 with systolic ejection murmur heard at the base. No diastolic murmur no rub. ABDOMEN: Soft, obese, nontender. EXTREMITIES: No significant edema. LAB DATA: Lab data revealed BUN and creatinine 55 and 1.52 which is worse than her baseline. Potassium is 3.9. Hemoglobin of 9.6. Her EKG revealed a sinus mechanism with no acute ST-segment changes with occasional PACs. Her chest x-ray shows no evidence of infiltrate. She has an abnormality on the left lower lobe consistent with her known malignancy. IMPRESSION: 1. Status post fall and fracture of the right hip scheduled to undergo surgical repair tomorrow. 2. History of chronic obstructive lung disease with chronic hypoxemia. 3. 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 4. Diagnosis of congestive heart failure, full details not available to me. 5. History of hyperlipidemia. RECOMMENDATION: From the cardiac standpoint, I will obtain echocardiogram with Doppler. I will stop her diuretic because of her renal function. The patient carries an increased risk for surgical intervention, but not prohibitive risks. She has no evidence of acute ischemic event and she is in sinus mechanism. Thank you for this consult. We will follow with you. AUGUSTOL / LAYTONN: [id number] /
[2018-02-27 07:32] LABS: Glucose,Whole Blood 107 mg/dL (75-99)
[2018-02-27] MEDS: INSULIN ASPART 100 UNIT/ML 1 ML 10 ML VIAL SQ SCH ×4 (08:21→21:44)
[2018-02-27] MEDS: ALLOPURINOL 300 MG TAB PO SCH (08:21)
[2018-02-27 08:33] LABS: Calcium 8.3 mg/dL (8.4-10.2); Potassium 3.5 mmol/L (3.5-5.1)
[2018-02-27] MEDS ORDERED: METOLAZONE 2.5 MG TAB PO SCH (09:00)
[2018-02-27] MEDS: IPRATROPIUM-ALBUTEROL 3 ML NEB INHALATION SCH ×4 (09:35→21:32)
[2018-02-27] MEDS: SYMBICORT 160-4.5 MCG INHALER INHALATION SCH ×2 (09:35→21:32)
[2018-02-27] MEDS: LINAGLIPTIN 5 MG TABLET PO SCH (10:32)
[2018-02-27] MEDS: PANTOPRAZOLE 40 MG/10 ML VIAL IV SCH (10:37)
[2018-02-27] MEDS: FAMOTIDINE 20 MG/2 ML VIAL IV SCH (10:37)
[2018-02-27 11:54] LABS: Glucose,Whole Blood 95 mg/dL (75-99)
[2018-02-27] MEDS ORDERED: SODIUM CHLORIDE 0.9% 1,000 ML IV ONE (12:12)
[2018-02-27] MEDS ORDERED: PROPOFOL 10 MG/ML 20 ML VIAL IV ONE (14:55)
[2018-02-27] MEDS ORDERED: MIDAZOLAM 2 MG/2 ML VIAL ONE (14:55)
[2018-02-27] MEDS ORDERED: KETAMINE 10 MG/ML 20 ML VIAL ONE (14:55)
--- NOTE | 2018-02-27 15:12 | P.CNPUL ---
History of Present Illness Consult date: 02/27/18 Requesting physician: Corona E Sheet Reason for consult: other Chief complaint: Fall at home, right hip fracture History of present illness: This is a 87-year-old patient known to us service from previous admissions, past medical history of severe COPD with chronic hypoxic respiratory failure, metastatic ductal carcinoma of the breast with endobronchial involvement, diabetes mellitus, hyperlipidemia, obstructive sleep apnea, chronic anemia. Patient is under the care of Dr. Best and is currently receiving Ibrance and Fosladex. We saw the patient in consultation a week ago for a chronic loculated left-sided pleural effusion which did not require draining. Patient had a previous left-sided pleural effusion drained in April 2017, and pleural fluid cytology was negative for malignant cells. Patient had been having recurrent falls at home, and she had another fall at home and sustained a fracture of the right hip. She states she tripped over her cane. Denied any lightheadedness or dizziness. She was brought into the emergency department and the x-ray of the pelvis and right hip showed acute intratrochanteric fracture of the right femur. She was evaluated by repeated surgery, was planning on surgery this afternoon, and work consult in regards to pulmonary clearance with the surgery. Chest x-ray was completed on 02/25/2018 and showed consolidation and atelectasis in the left lower lobe related to a chronic loculated pleural effusion on the left previously seen on previous chest x-rays and CT chests. Review of Systems All systems: negative Constitutional: Denies chills, Denies fever Eyes: denies blurred vision, denies pain Ears, nose, mouth and throat: Denies headache, Denies sore throat Cardiovascular: Denies chest pain, Denies shortness of breath Respiratory: Denies cough Gastrointestinal: Denies abdominal pain, Denies diarrhea, Denies nausea, Denies vomiting Genitourinary: Denies dysuria, Denies hematuria Musculoskeletal: Denies myalgias Musculoskeletal: right: hip pain Integumentary: Denies pruritus, Denies rash Neurological: Denies numbness, Denies weakness Psychiatric: Denies anxiety, Denies depression Endocrine: Denies fatigue, Denies weight change Past Medical History Past Medical History: Cancer, Chest Pain / Angina, Heart Failure, COPD, Diabetes Mellitus, GERD/Reflux, Hyperlipidemia, Hypertension, Memory Impairment , Osteoarthritis (OA), Respiratory Disorder, Sleep Apnea/CPAP/BIPAP Additional Past Medical History / Comment(s): O2 3 liters atc, GOUT, past hx of hemoptysis-LUNG CANCER, lt BREAST CA, osteoporosis,short term memory problems, past peptic ulcer disease, murmur. fell after thanksgiving -fx rt arm currently it's casteD. RIGHT PLEURAL EFFUSION. History of Any Multi-Drug Resistant Organisms: None Reported Past Surgical History: Section, Cholecystectomy, Hysterectomy, Joint Replacement, Tonsillectomy Additional Past Surgical History / Comment(s): LT BREAST BX,MASTECTOMY LEFT SIDE , JAMEL KNEE REPLACEMENT,several BRONCHOSCOPIES,PAST LAP BAND, EGD/COLONOSCOPY. RIGHT THORACENTESIS. Past Anesthesia/Blood Transfusion Reactions: No Reported Reaction Past Psychological History: No Psychological Hx Reported Additional Psychological History / Comment(s): PT'S SON LIVES WITH PT. PT USES CANE OR WALKER WHEN UP. ALSO HAS HOME 02 [address]/C, CPAP MACHINE. NO HOME CARE SERVICES. Smoking Status: Former smoker Past Alcohol Use History: None Reported Additional Past Alcohol Use History / Comment(s): SMOKED FOR A YEAR AGE [age], Past Drug Use History: None Reported - Past Family History Mother Family Medical History: Cancer Additional Family Medical History / Comment(s): BREAST CANCER Father Family Medical History: No Reported History Additional Family Medical History / Comment(s): PT STATED HER DAD NEVER WENT TO . LIVED TILL HE WAS 98 YEARS OLD Medications and Allergies Home Medications Medication Instructions Recorded Confirmed Type Albuterol Sulfate [Ventolin HFA] 2 puff INHALATION RT-Q6H PRN 04/21/15 02/25/18 History Allopurinol 300 mg PO DAILY 04/21/15 02/25/18 History Atorvastatin [Lipitor] 20 mg PO HS 04/21/15 02/25/18 History Metolazone 2.5 mg PO Q48H 04/21/15 02/25/18 History Nitroglycerin Sl Tabs [Nitrostat] 0.4 mg PO Q5M PRN 04/21/15 02/25/18 History Omeprazole 20 mg PO DAILY 04/21/15 02/25/18 History sitaGLIPtin [Januvia] 100 mg PO DAILY 04/21/15 02/25/18 History Alendronate Sodium [Fosamax] 70 mg PO MO 03/01/17 02/25/18 History Budesonide-Formot 160-4.5 Mcg 2 puff INHALATION RT-BID puff 04/09/17 02/25/18 Rx [Symbicort 160-4.5 Mcg Inhaler] Furosemide [Lasix] 40 mg PO DAILY #1 tablet 04/09/17 02/25/18 Rx Ipratropium-Albuterol Nebulize 3 ml INHALATION RT-QID ampul.neb 04/09/17 Rx [Duoneb 0.5 mg-3 mg/3 ml Soln] Naproxen Sodium [Aleve] 220 mg PO BID 02/19/18 02/25/18 History Palbociclib [Ibrance] 125 mg PO Q21D 02/19/18 02/25/18 History predniSONE See Taper PO DAILY #15 tab 02/22/18 02/25/18 Rx Allergies Allergy/AdvReac Type Severity Reaction Status Date / Time Penicillins Allergy Rash/Hives Verified 02/27/18 12:14 Physical Exam Vitals: Vital Signs Temp Pulse Pulse Resp BP BP Pulse Ox 02/27/18 12:11 97.4 F L 67 18 125/72 94 L 02/27/18 09:46 68 02/27/18 09:36 66 02/27/18 07:00 98.2 F 62 16 132/80 92 L 02/26/18 23:56 97.8 F 75 16 123/71 99 02/26/18 20:41 68 02/26/18 20:25 72 02/26/18 19:25 97.5 F L 76 18 103/61 99 02/26/18 17:08 70 02/26/18 16:57 72 02/26/18 15:00 97.7 F 72 16 121/73 100 Intake and Output 02/26/18 02/27/18 02/27/18 22:59 06:59 14:59 Intake Total 502 765 Output Total 1100 650 550 Balance -598 115 -550 Intake: Intake, IV Titration 262 525 Amount Sodium Chloride 0.9% 1, 262 525 000 ml @ 75 mls/hr IV . [id number] [facility] Rx#:[id number] Oral 240 Blood Product 240 Output: Urine 1100 650 550 Uretheral (Bernabe) 650 Other: Voiding Method Indwelling Catheter GENERAL EXAM: Alert, 87-year-old white female, comfortable in no apparent distress. HEAD: Normocephalic/atraumatic. EYES: Normal reaction of pupils, equal size. Conjunctiva pink, sclera white. NOSE: Clear with pink turbinates. THROAT: No erythema or exudates. NECK: No masses, no JVD, no thyroid enlargement, no adenopathy. CHEST: No chest wall deformity. Symmetrical expansion. LUNGS: Equal air entry with clear lung sounds, slightly diminished at the left base CVS: Regular rate and rhythm, normal S1 and S2, no gallops, no murmurs, no rubs ABDOMEN: Soft, nontender. No hepatosplenomegaly, normal bowel sounds, no guarding or rigidity. EXTREMITIES: No clubbing, no edema, no cyanosis, 2+ pulses and upper and lower extremities. Right extremity is externally rotated and shortened, pain with any motion of the right hip MUSCULOSKELETAL: Muscle strength and tone normal. SPINE: No scoliosis or deformity SKIN: No rashes CENTRAL NERVOUS SYSTEM: Alert and oriented -3. No focal deficits, tone is normal in all 4 extremities. PSYCHIATRIC: Alert and oriented -3. Appropriate affect. Intact judgment and insight. Results - Laboratory Findings CBC and BMP: 02/25/18 21:19 02/27/18 06:51 PT/INR, D-dimer PT 10.0 sec (9.0-12.0) 02/25/18 21:19 INR 1.0 (<1.2) 02/25/18 21:19 Abnormal lab findings: Abnormal Labs 02/25/18 02/25/18 02/25/18 21:19 21:19 21:19 WBC 3.4 L RBC 2.49 L Hgb 9.6 L D Hct 29.0 L MCV 116.5 H MCH 38.5 H RDW 17.9 H Lymphocytes # (Manual) 0.44 L Myelocytes # (Manual) 0.14 H Nucleated RBCs 1 H APTT 20.0 L Sodium 133 L Chloride 83 L Carbon Dioxide 40 H BUN 55 H Creatinine 1.52 H Glucose 149 H POC Glucose (mg/dL) Calcium 02/26/18 02/26/18 02/26/18 07:04 11:50 16:56 WBC RBC Hgb Hct MCV MCH RDW Lymphocytes # (Manual) Myelocytes # (Manual) Nucleated RBCs APTT Sodium Chloride Carbon Dioxide BUN Creatinine Glucose POC Glucose (mg/dL) 147 H 101 H 205 H Calcium 02/26/18 02/27/18 02/27/18 20:16 06:51 07:17 WBC RBC Hgb Hct MCV MCH RDW Lymphocytes # (Manual) Myelocytes # (Manual) Nucleated RBCs APTT Sodium 133 L Chloride 90 L Carbon Dioxide 37 H BUN 43 H Creatinine 1.29 H Glucose POC Glucose (mg/dL) 156 H 107 H Calcium 8.3 L - Diagnostic Findings Chest x-ray: report reviewed, image reviewed Assessment and Plan Plan: Assessment: #1. A fall at home, acute intertrochanteric fracture of the right femur #2. Acute kidney injury #3. History of COPD with chronic hypoxemic respiratory failure, currently stable #4. Chronic loculated left pleural effusion, previously underwent left thoracentesis in April 2017 that ALLERGY was negative #5. Metastatic ductal carcinoma of the breast with endobronchial involvement #6. Obstructive sleep apnea #7. Hyperlipidemia #8. Osteoporosis #9. Chronic kidney disease, stage 3 #10. Diabetes mellitus type 2 #11. Coronary artery disease #12. Osteoarthritis #13. Gait dysfunction Plan: Patient's COPD is stable at this time, chest x-ray has been reviewed, patient has a chronic loculated left pleural effusion. Continue Symbicort, nebulized bronchodilators. Patient is cleared for surgery from pulmonary perspective, she is an increased but acceptable risk for surgery. Will follow the patient in the postoperative period. I performed a history & physical examination of the patient and discussed their management with my nurse practitioner, Isabella Alexis. I reviewed the nurse practitioner's note and agree with the documented findings and plan of care. Lung sounds are clear, diminished at the left base. The findings and the impression was discussed with the patient. I attest to the documentation by the nurse practitioner. Time with Patient: Greater than 30
[2018-02-27] MEDS ORDERED: CLINDAMYCIN 150 MG/ML 4 ML VIAL IVPB ONE (15:40)
[2018-02-27] MEDS ORDERED: CLINDAMYCIN 600 MG in SODIUM CHLORIDE 0.9% 1,000 ML IRRIGATION ONE (15:55)
[2018-02-27] MEDS ORDERED: TRANEXAMIC ACID 1,000 MG in SODIUM CHLORIDE 0.9% 100 ML IV STA (16:00)
[2018-02-27] MEDS ORDERED: HYDROcodone/APAP 5-325MG 1 EACH TAB PO PRN ×2 (16:48)
[2018-02-27] MEDS ORDERED: HYDROmorphone 1 MG/ML 1 ML SYRINGE IVP PRN ×3 (16:48)
[2018-02-27] MEDS ORDERED: NALOXONE 0.4 MG/ML 1 ML VIAL IV PRN (16:48)
[2018-02-27] MEDS ORDERED: MAGNESIUM HYDROXIDE 2,400 MG/10 ML CUP PO PRN (16:48)
[2018-02-27] MEDS ORDERED: TEMAZEPAM 15 MG CAP PO PRN (16:48)
--- NOTE | 2018-02-27 16:56 | ECHOF ---
Referral Reason:chf MEASUREMENTS -------- HEIGHT: 157.5 cm WEIGHT: 72.6 kg BP: 123/71 RVIDd: 3.3 cm (< 3.3) IVSd: 1.1 cm (0.6 - 1.1) LVIDd: 4.2 cm (3.9 - 5.3) LVPWd: 1.1 cm (0.6 - 1.1) IVSs: 1.5 cm LVIDs: 2.0 cm LVPWs: 1.6 cm LAESV Index (A-L): 31.96 ml/m Ao Diam: 2.9 cm (2.0 - 3.7) AV Cusp: 1.8 cm (1.5 - 2.6) LA Diam: 2.3 cm (2.7 - 3.8) EPSS: 0.2 cm MV E Bridger: 1.21 m/s MV DecT: 215 ms MV A Bridger: 1.04 m/s MV E/A Ratio: 1.16 AV maxP.44 mmHg AV meanP.68 mmHg RAP: 5.00 mmHg RVSP: 70.29 mmHg MV EF SLOPE: 42.35 mm/s (70 - 150) MV EXCURSION: 1.69 cm (> 18.000) FINDINGS -------- Sinus rhythm. This was a technically adequate study. The left ventricular size is normal. There is borderline concentric left ventricular hypertrophy. Overall left ventricular systolic function is normal with, an EF between 55 - 60 %. The right ventricle is mildly enlarged. LA is midly dilated 29-33ml/m2. The right atrium is normal in size. The aortic valve is trileaflet, and appears structurally normal. No aortic stenosis or regurgitation. The mitral valve leaflets are mildly thickened. Mild mitral regurgitation is present. Severe tricuspid regurgitation present. There is severe pulmonary hypertension. The right ventric ular systolic pressure, as measured by Doppler, is 70.29mmHg. Moderate pulmonic regurgitation. The aortic root size is normal. Normal inferior vena cava with normal inspiratory collapse consistent with estimated right atrial pre ssure of 5 mmHg. There is no pericardial effusion. CONCLUSIONS -------- 1. Sinus rhythm. 2. This was a technically adequate study. 3. The left ventricular size is normal. 4. There is borderline concentric left ventricular hypertrophy. 5. Overall left ventricular systolic function is normal with, an EF between 55 - 60 %. 6. The right ventricle is mildly enlarged. 7. LA is midly dilated 29-33ml/m2. 8. The aortic valve is trileaflet, and appears structurally normal. No aortic stenosis or regurgitati on. 9. The mitral valve leaflets are mildly thickened. 10. Mild mitral regurgitation is present. 11. Severe tricuspid regurgitation present. 12. There is severe pulmonary hypertension. 13. The right ventricular systolic pressure, as measured by Doppler, is 70.29mmHg. 14. Moderate pulmonic regurgitation. 15. The aortic root size is normal. 16. There is no pericardial effusion. EDITOR: Mansoor Green RDCS
[2018-02-27] MEDS: HYDROmorphone 1 MG/ML 1 ML SYRINGE IVP ONE ×4 (17:00→17:33)
--- NOTE | 2018-02-27 17:02 | FL ---
EXAMINATION TYPE: FL guidance operating room, XR Hip Complete RT DATE OF EXAM: 02/27/2018 CLINICAL HISTORY: Right hip fracture. TECHNIQUE: Fluoroscopy. 2 views intraoperatively right hip. COMPARISON: None. FINDINGS: Fluoroscopic guidance was provided during open reduction internal fixation procedure perfo rmed by Dr. Conte. A total of 84 seconds of fluoroscopic time was utilized during the procedure and 3 spot fluoroscopic intraoperative images are acquired. Images acquired show placement of large intramedullary flavio with distal transverse fixating screw and larger femoral neck fixating screw through the intertrochanteric fracture of right proximal femur. Sa tisfactory alignment is seen on intraoperative images saved after reduction and fixation. IMPRESSION: As Above.
[2018-02-27 17:41] LABS: Anisocytosis Slight; Basophils % (A) 0 %; Eosinophils % (A) 1 %; HCT 23.2 % (34.0-46.0); Hypochromasia Slight; Lymphocytes # (A) 0.5 k/uL (1.0-4.8); Lymphocytes % (A) 19 %; MCH 39.5 pg (25.0-35.0); MCHC 31.8 g/dL (31.0-37.0); Macrocytosis Marked; Monocytes # (A) 0.3 k/uL (0-1.0); Monocytes % (A) 10 %; Neutrophils # (A) 1.8 k/uL (1.3-7.7); Neutrophils % (A) 67 %; Platelet Count 100 k/uL (150-450); RBC 1.86 m/uL (3.80-5.40); RDW 18.4 % (11.5-15.5); WBC 2.7 k/uL (3.8-10.6)
[2018-02-27 17:44] LABS: HGB 7.4 gm/dL (11.4-16.0)
[2018-02-27 17:45] LABS: MCV 124.4 fL (80.0-100.0)
[2018-02-27] MEDS ORDERED: WARFARIN 1 MG TAB PO SCH (18:00)
[2018-02-27] MEDS ORDERED: WARFARIN 2 MG TAB PO ONE (18:00)
[2018-02-27] MEDS: LACTATED RINGERS 1,000 ML IV SCH (18:24)
[2018-02-27 21:16] LABS: Glucose,Whole Blood 120 mg/dL (75-99)
--- NOTE | 2018-02-27 22:51 | P.PN ---
Subjective this is a pleasant 87 years old female with past medical history ofCOPD, coronary artery disease, congestive heart failure, diabetes mellitus, type II. GERD, hyperlipidemia, hypertension, memory impairment, osteoarthritis, chronic hypoxic respiratory failure on home oxygen, history of gout. Presents because after she fell, patient denies syncope/presyncope and no dizziness. She states that she lost control and tripped. She denies any trauma. However she has pain in the right hip area. X-ray shows right femoral fracture. Chest x-ray showing increased left lower lobe density.WBC3.4,hemoglobin 9.6. Sodium 133. Creatinineis slightly elevated at 1.5. 02/27/2018 Patient is seen and examined by me at bedside. Patient with no chest pain or dyspnea. She is been evaluated by both cardiology and pulmonary team and their input is appreciated. Patient is at increased but acceptable risk for surgery. She is going for closed reduction of her femoral fracture. The abnormalities seen and the chest x-ray most likely is likely to pleural effusion as per pulmonary team. Objective - Vital Signs Vital signs: Vital Signs Temp 97.4 F L 02/27/18 12:11 Pulse 67 02/27/18 12:11 Resp 18 02/27/18 12:11 BP 125/72 02/27/18 12:11 Pulse Ox 94 L 02/27/18 12:11 Intake & Output 02/26/18 02/27/18 02/27/18 18:59 06:59 18:59 Intake Total 320 1267 401 Output Total 5188 271 3113 Balance -780 617 -724 Intake: IV 401 Intake, IV Titration 787 Amount Sodium Chloride 0.9% 1, 787 000 ml @ 75 mls/hr IV . [id number] [facility] Rx#:[id number] Oral 320 240 Blood Product 240 Output: Urine 2835 240 4505 Uretheral (Bernabe) 650 Estimated Blood Loss 75 Other: Voiding Method Indwelling Catheter Indwelling Catheter Indwelling Catheter - Exam GENERAL: The patient is alert and oriented x3, not in any acute distress. Well developed, well nourished. HEENT: Pupils are round and equally reacting to light. EOMI. No scleral icterus. No conjunctival pallor. Normocephalic, atraumatic. No pharyngeal erythema. No thyromegaly. CARDIOVASCULAR: S1 and S2 present. No murmurs, rubs, or gallops. PULMONARY: Chest is clear to auscultation, no wheezing or crackles. ABDOMEN: Soft, nontender, nondistended, normoactive bowel sounds. No palpable organomegaly. MUSCULOSKELETAL: No joint swelling or deformity. -EXTREMITIES: No cyanosis, clubbing, or pedal edema.right leg is shortened and externally rotated NEUROLOGICAL: Gross neurological examination did not reveal any focal deficits. SKIN: No rashes. - Labs CBC & Chem 7: 02/25/18 21:19 02/27/18 06:51 Labs: Abnormal Lab Results - Last 24 Hours (Table) 02/26/18 02/26/18 02/27/18 Range/Units 16:56 20:16 06:51 Sodium 133 L (137-145) mmol/L Chloride 90 L (98-107) mmol/L Carbon Dioxide 37 H (22-30) mmol/L BUN 43 H (7-17) mg/dL Creatinine 1.29 H (0.52-1.04) mg/dL POC Glucose (mg/dL) 205 H 156 H (75-99) mg/dL Calcium 8.3 L (8.4-10.2) mg/dL 02/27/18 Range/Units 07:17 Sodium (137-145) mmol/L Chloride (98-107) mmol/L Carbon Dioxide (22-30) mmol/L BUN (7-17) mg/dL Creatinine (0.52-1.04) mg/dL POC Glucose (mg/dL) 107 H (75-99) mg/dL Calcium (8.4-10.2) mg/dL Assessment and Plan Assessment: status post tripping and falling without syncope or presyncope Right hip fracture history of heart failure and coronary artery disease acute kidney injury on the top of chronic kidney disease stage III Memory impairment hyperlipidemia Type 2 diabetes mellitus Osteoarthritis COPD, not in acute exacerbation Plan: this is a pleasant 87 years old female who presents with a fall and right hip fracture. Patient is is been evaluated by orthopedic DD team for possible hip arthroplasty. Patient has extensive history of heart disease. Will call cardiology consult for preop evaluation.pulmonary consult. Labs and medication were reviewed.. Continue same treatment. Continue with symptomatic treatment. Resume home medication. Monitor lytes and vitals. pain management as per primary team. DVT prophylaxis as per primary team. DVT and GI prophylaxis. Further recommendations of the clinical course of the patient DVT prophylaxis: Subcutaneous heparin GI Prophylaxis: Pepcid PT/OT: Pending Prognosis is guarded thank you for consulting us.
[2018-02-27] MEDS: ATORVASTATIN 20 MG TAB PO SCH (22:54)
[2018-02-27] MEDS: SENNOSIDES-DOCUSATE SODIUM 1 EACH TAB PO SCH (22:55)
[2018-02-28] MEDS: CLINDAMYCIN 900 MG in DEXTROSE 5% IN WATER 50 ML IVPB SCH ×4 (02:01→05:56)
[2018-02-28] MEDS: SODIUM CHLORIDE 0.9% 1,000 ML IV SCH ×2 (04:39→21:28)
[2018-02-28] MEDS: LACTATED RINGERS 1,000 ML IV SCH ×3 (05:55→21:35)
--- NOTE | 2018-02-28 07:58 | P.PN ---
Subjective Progress Note Date: 02/28/18 Principal diagnosis: Right hip fracture. Status post intertrochanteric nail insertion right hip. This is an 87-year-old female who is status post close reduction with insertion of intertrochanteric nail of the right hip. She is stable from an orthopedic standpoint. She has no new complaints or concerns today. Vital signs are stable. Her son is present at bedside. Objective - Vital Signs Vital signs: Vital Signs Temp 98.2 F 02/28/18 07:32 Pulse 69 02/28/18 07:32 Resp 16 02/28/18 07:32 BP 105/65 02/28/18 07:32 Pulse Ox 100 02/28/18 07:32 Intake & Output 02/27/18 02/28/18 02/28/18 18:59 06:59 18:59 Intake Total 451 1600 Output Total 1125 850 Balance -674 750 Intake: IV 451 Intake, IV Titration 1600 Amount Lactated Ringers 1,000 ml 1600 @ 100 mls/hr IV .Q10H [facility] Rx#:[id number] Output: Urine 1050 850 Estimated Blood Loss 75 Other: Voiding Method Indwelling Catheter Indwelling Catheter Indwelling Catheter - Exam This is a pleasant 87-year-old female in no acute distress. She is alert and oriented 3. Exam of the right hip reveals that her dressing is clean, dry and intact. She has full foot and ankle motion bilaterally. Pedal pulse is +2/4. Neurovascular status to the lower extremity is intact. - Labs CBC & Chem 7: 02/27/18 06:51 02/27/18 06:51 Labs: Abnormal Lab Results - Last 24 Hours (Table) 02/27/18 02/27/18 02/27/18 Range/Units 06:51 06:51 21:05 WBC 2.7 L (3.8-10.6) k/uL RBC 1.86 L (3.80-5.40) m/uL Hgb 7.4 L D (11.4-16.0) gm/dL Hct 23.2 L (34.0-46.0) % MCV 124.4 H D (80.0-100.0) fL MCH 39.5 H (25.0-35.0) pg RDW 18.4 H (11.5-15.5) % Plt Count 100 L (150-450) k/uL Lymphocytes # 0.5 L (1.0-4.8) k/uL Sodium 133 L (137-145) mmol/L Chloride 90 L (98-107) mmol/L Carbon Dioxide 37 H (22-30) mmol/L BUN 43 H (7-17) mg/dL Creatinine 1.29 H (0.52-1.04) mg/dL POC Glucose (mg/dL) 120 H (75-99) mg/dL Calcium 8.3 L (8.4-10.2) mg/dL Assessment and Plan (1) Breast cancer metastasized to lung Current Visit: Yes Status: Acute Code(s): C50.919 - MALIGNANT NEOPLASM OF UNSP SITE OF UNSPECIFIED FEMALE BREAST SNOMED Code(s): 181377489 (2) Closed right hip fracture Current Visit: Yes Status: Acute Code(s): S72.001A - FRACTURE OF UNSP PART OF NECK OF RIGHT FEMUR, INIT SNOMED Code(s): 637129616 (3) Fall Current Visit: Yes Status: Acute Code(s): W19.XXXA - UNSPECIFIED FALL, INITIAL ENCOUNTER SNOMED Code(s): 5242635 Plan: The clinical findings are discussed with the patient and her family. We will begin physical therapy today. She is toe-touch weightbearing to the right lower extremity with walker. We are planning discharge to inpatient rehab Friday.
[2018-02-28] MEDS: INSULIN ASPART 100 UNIT/ML 1 ML 10 ML VIAL SQ SCH ×4 (08:17→20:41)
[2018-02-28] MEDS: IPRATROPIUM-ALBUTEROL 3 ML NEB INHALATION SCH ×4 (08:42→21:39)
[2018-02-28] MEDS: SYMBICORT 160-4.5 MCG INHALER INHALATION SCH ×2 (08:44→21:40)
[2018-02-28 09:02] LABS: Prothrombin Time 10.2 sec (9.0-12.0)
[2018-02-28] MEDS: LINAGLIPTIN 5 MG TABLET PO SCH (10:18)
[2018-02-28] MEDS: ALLOPURINOL 300 MG TAB PO SCH (10:18)
[2018-02-28] MEDS: PANTOPRAZOLE 40 MG/10 ML VIAL IV SCH (10:18)
[2018-02-28] MEDS: FAMOTIDINE 20 MG/2 ML VIAL IV SCH (10:19)
[2018-02-28 10:21] LABS: Glucose,Whole Blood 129 mg/dL (75-99)
[2018-02-28] MEDS: HEPARIN SODIUM,PORCINE 5,000 UNIT/ML 1 ML VIAL SQ SCH (10:34)
[2018-02-28 12:09] LABS: Glucose,Whole Blood 135 mg/dL (75-99)
--- NOTE | 2018-02-28 12:43 | P.PN ---
Subjective Progress Note Date: 02/28/18 The patient had surgery yesterday. She is still somewhat drowsy and confused due to effects of anesthesia. No history of fever/chills/nausea/vomiting. Objective - Vital Signs Vital signs: Vital Signs Temp 98.2 F 02/28/18 07:32 Pulse 68 02/28/18 08:55 Resp 16 02/28/18 07:32 BP 105/65 02/28/18 07:32 Pulse Ox 100 02/28/18 07:32 Intake & Output 02/27/18 02/28/18 02/28/18 18:59 06:59 18:59 Intake Total 451 1600 Output Total 1125 850 Balance -674 750 Intake: IV 451 Intake, IV Titration 1600 Amount Lactated Ringers 1,000 ml 1600 @ 100 mls/hr IV .Q10H [facility] Rx#:[id number] Output: Urine 1050 850 Estimated Blood Loss 75 Other: Voiding Method Indwelling Catheter Indwelling Catheter Indwelling Catheter - Constitutional General appearance: Present: no acute distress - EENT ENT: Present: hearing grossly normal, normal oropharynx - Respiratory Respiratory: bilateral: diminished (Left base greater than right) - Cardiovascular Rhythm: regular Heart sounds: normal: S1, S2 - Gastrointestinal General gastrointestinal: Present: normal bowel sounds, soft - Integumentary Integumentary: Present: normal - Neurologic Neurologic: Present: CNII-XII intact - Musculoskeletal Musculoskeletal: Present: generalized weakness, strength equal bilaterally - Psychiatric Psychiatric Comment(s): Mildly confused - Labs CBC & Chem 7: 02/27/18 06:51 02/27/18 06:51 Labs: Abnormal Lab Results - Last 24 Hours (Table) 02/27/18 02/27/18 02/28/18 Range/Units 06:51 21:05 10:09 WBC 2.7 L (3.8-10.6) k/uL RBC 1.86 L (3.80-5.40) m/uL Hgb 7.4 L D (11.4-16.0) gm/dL Hct 23.2 L (34.0-46.0) % MCV 124.4 H D (80.0-100.0) fL MCH 39.5 H (25.0-35.0) pg RDW 18.4 H (11.5-15.5) % Plt Count 100 L (150-450) k/uL Lymphocytes # 0.5 L (1.0-4.8) k/uL POC Glucose (mg/dL) 120 H 129 H (75-99) mg/dL 02/28/18 Range/Units 11:57 WBC (3.8-10.6) k/uL RBC (3.80-5.40) m/uL Hgb (11.4-16.0) gm/dL Hct (34.0-46.0) % MCV (80.0-100.0) fL MCH (25.0-35.0) pg RDW (11.5-15.5) % Plt Count (150-450) k/uL Lymphocytes # (1.0-4.8) k/uL POC Glucose (mg/dL) 135 H (75-99) mg/dL Assessment and Plan (1) Closed right hip fracture Narrative/Plan: Patient is status post surgery, which she appears to have tolerated well so far. Defer to orthopedics for postoperative care. The patient is a high risk for postop DVT. Therefore she should be treated with anticoagulation, to be started as soon as okay with orthopedics, and to be continued for about 4 weeks. One of the newer oral anticoagulants at the postoperative for rectal dose would be reasonable choices. Case discussed with IM. Current Visit: Yes Status: Acute Code(s): S72.001A - FRACTURE OF UNSP PART OF NECK OF RIGHT FEMUR, INIT SNOMED Code(s): 736657392 (2) Bicytopenia Narrative/Plan: Further drop in counts was noted yesterday, which is expected due to additional information from the injury. Continue to monitor counts, as further drops can occur from postoperative inflammation. Supportive transfusions and/or growth factors as needed Current Visit: No Status: Acute Priority: Medium Code(s): D75.89 - OTHER SPECIFIED DISEASES OF BLOOD AND BLOOD-FORMING ORGANS SNOMED Code(s): 889920338 (3) Breast cancer metastasized to lung Narrative/Plan: The patient will need to be off Ibrance, till she is healed up from her surgery. Her next Faslodex is due in mid 03/24. The patient is an ECF for rehab at the time, then this can be delayed. We would recommend follow-up in the office about 2-3 weeks post discharge. Current Visit: Yes Status: Acute Code(s): C50.919 - MALIGNANT NEOPLASM OF UNSP SITE OF UNSPECIFIED FEMALE BREAST SNOMED Code(s): 254905271
[2018-02-28 13:57] LABS: Anisocytosis Slight; HCT 20.1 % (34.0-46.0); Hypochromasia Slight; MCH 39.8 pg (25.0-35.0); MCHC 32.8 g/dL (31.0-37.0); MCV 121.2 fL (80.0-100.0); Macrocytosis Marked; Mean Platelet Volume 9.4; Platelet Count 116 k/uL (150-450); RBC 1.65 m/uL (3.80-5.40); RDW 18.2 % (11.5-15.5); WBC 4.3 k/uL (3.8-10.6)
[2018-02-28 14:01] LABS: HGB 6.6 gm/dL (11.4-16.0)
[2018-02-28] MEDS ORDERED: FUROSEMIDE 10 MG/ML 4 ML VIAL IV PRN (14:21)
[2018-02-28 14:24] LABS: Band Neutrophils % 1 %; Eosinophils # (M) 0.04 k/uL (0-0.7); Monocytes # (M) 0.43 k/uL (0-1.0); Myelocytes # (M) 0.09 k/uL (0); Myelocytes % 2 %; Neutrophils % (M) 81 %; Nucleated Red Blood Cells 0 /100 WBC (0-0); Total Cells Counted 200
[2018-02-28 14:25] LABS: Poikilocytosis (M) Present
--- NOTE | 2018-02-28 16:02 | PN ---
PROGRESS NOTE Mrs. Earl is an 87-year-old female who presented with a fall and underwent surgical repair of her hip yesterday. She carries diagnosis of CHF, but has underwent an echocardiogram that revealed a preserved left ventricular systolic function with severe tricuspid regurgitation and severe pulmonary hypertension that has been documented in the past. She has a history of chronic obstructive lung disease. She is feeling well. She denies any chest pain. She is in sinus mechanism. She denies any dizziness or palpitation. She continues to be at this time on allopurinol, Lipitor 20 mg daily, Tradjenta, Protonix and Coumadin. PHYSICAL EXAMINATION: Blood pressure 105/60 with a heart in 60s. LUNGS: Decreased air exchange, no wheezes. HEART: Regular rhythm S1, S2. No S3. No rub. ABDOMEN: Soft, nontender. EXTREMITIES: Dressing in place. LAB DATA: Lab data revealed a hemoglobin of 6.6, white blood cell of 4.3. IMPRESSION: 1. Status post fall and surgery with fractured hip. 2. History of breast cancer and with lung metastasis. 3. History of chronic obstructive pulmonary disease and pulmonary hypertension. 4. History of diabetes. 5. Anemia. RECOMMENDATION: From the cardiac standpoint she is stable. We will continue the present therapy. We will see her on an as-needed basis. Please feel free to call us for any question. MMODL / IJN: [id number] /
--- NOTE | 2018-02-28 16:39 | P.PN ---
Subjective this is a pleasant 87 years old female with past medical history ofCOPD, coronary artery disease, congestive heart failure, diabetes mellitus, type II. GERD, hyperlipidemia, hypertension, memory impairment, osteoarthritis, chronic hypoxic respiratory failure on home oxygen, history of gout. Presents because after she fell, patient denies syncope/presyncope and no dizziness. She states that she lost control and tripped. She denies any trauma. However she has pain in the right hip area. X-ray shows right femoral fracture. Chest x-ray showing increased left lower lobe density.WBC3.4,hemoglobin 9.6. Sodium 133. Creatinineis slightly elevated at 1.5. 02/27/2018 Patient is seen and examined by me at bedside. Patient with no chest pain or dyspnea. She is been evaluated by both cardiology and pulmonary team and their input is appreciated. Patient is at increased but acceptable risk for surgery. She is going for closed reduction of her femoral fracture. The abnormalities seen and the chest x-ray most likely is likely to pleural effusion as per pulmonary team. 02/28/2018 Patient is status post intertrochanteric nail of the right hip. The area today is postop day #1. Patient looks pale. She is drowsy from pain medication. Sign at bedside. Patient does not look in distress. Her hemoglobin dropped to 6.6. One unit of blood transfusion is ordered, discussed with the patient and son at bedside risks, alternatives, and benefits are explained and they agreed for blood transfusion. Hematology team R following the case and their input is appreciated. They recommended anticoagulation for about 4 weeks as she is high- risk for postop DVT. However significant drop in hemoglobin her anticoagulation will be held today. As patient might be actively bleeding and she is given 1 units of blood transfusion. Son at bedside and explained to the patient and son that she's had has risk of bleeding and thrombosis. And they are agreeable with the plan CONSTITUTIONAL: No fever, no malaise, no fatigue. HEENT: No recent visual problems or hearing problems. Denied any sore throat. CARDIOVASCULAR: No orthopnea, PND, no palpitations, no syncope. PULMONARY: No shortness of breath, no cough, no hemoptysis. GASTROINTESTINAL: No diarrhea, no nausea, no vomiting, no abdominal pain. Normoactive bowel sounds. NEUROLOGICAL: No headaches, no weakness, no numbness. HEMATOLOGICAL: Denies any bleeding or petechiae. GENITOURINARY: Denies any burning micturition, frequency, or urgency. MUSCULOSKELETAL/RHEUMATOLOGICAL: Denies any joint pain, swelling, or any muscle pain. ENDOCRINE: Denies any polyuria or polydipsia. Objective - Vital Signs Vital signs: Vital Signs Temp 97.9 F 02/28/18 15:21 Pulse 70 02/28/18 16:21 Resp 16 02/28/18 16:21 BP 120/63 02/28/18 15:21 Pulse Ox 96 02/28/18 15:21 Intake & Output 02/27/18 02/28/18 02/28/18 18:59 06:59 18:59 Intake Total 451 1600 800 Output Total 1125 850 400 Balance -674 750 400 Intake: IV 451 Intake, IV Titration 1600 800 Amount Lactated Ringers 1,000 ml 1600 800 @ 100 mls/hr IV .Q10H [facility] Rx#:[id number] Output: Urine 1050 850 400 Estimated Blood Loss 75 Other: Voiding Method Indwelling Catheter Indwelling Catheter Indwelling Catheter - Exam GENERAL: The patient is alert and oriented x3, not in any acute distress. Well developed, well nourished. HEENT: Pupils are round and equally reacting to light. EOMI. No scleral icterus. No conjunctival pallor. Normocephalic, atraumatic. No pharyngeal erythema. No thyromegaly. CARDIOVASCULAR: S1 and S2 present. No murmurs, rubs, or gallops. PULMONARY: Chest is clear to auscultation, no wheezing or crackles. ABDOMEN: Soft, nontender, nondistended, normoactive bowel sounds. No palpable organomegaly. MUSCULOSKELETAL: No joint swelling or deformity. -EXTREMITIES: No cyanosis, clubbing, or pedal edema.right leg is shortened and externally rotated NEUROLOGICAL: Gross neurological examination did not reveal any focal deficits. SKIN: No rashes. - Labs CBC & Chem 7: 02/28/18 07:33 02/27/18 06:51 Labs: Abnormal Lab Results - Last 24 Hours (Table) 02/27/18 02/27/18 02/28/18 Range/Units 06:51 21:05 07:33 WBC 2.7 L (3.8-10.6) k/uL RBC 1.86 L 1.65 L (3.80-5.40) m/uL Hgb 7.4 L D 6.6 L* (11.4-16.0) gm/dL Hct 23.2 L 20.1 L (34.0-46.0) % MCV 124.4 H D 121.2 H (80.0-100.0) fL MCH 39.5 H 39.8 H (25.0-35.0) pg RDW 18.4 H 18.2 H (11.5-15.5) % Plt Count 100 L 116 L (150-450) k/uL Lymphocytes # 0.5 L (1.0-4.8) k/uL Lymphocytes # (Manual) 0.30 L (1.0-4.8) k/uL Myelocytes # (Manual) 0.09 H (0) k/uL POC Glucose (mg/dL) 120 H (75-99) mg/dL 02/28/18 02/28/18 Range/Units 10:09 11:57 WBC (3.8-10.6) k/uL RBC (3.80-5.40) m/uL Hgb (11.4-16.0) gm/dL Hct (34.0-46.0) % MCV (80.0-100.0) fL MCH (25.0-35.0) pg RDW (11.5-15.5) % Plt Count (150-450) k/uL Lymphocytes # (1.0-4.8) k/uL Lymphocytes # (Manual) (1.0-4.8) k/uL Myelocytes # (Manual) (0) k/uL POC Glucose (mg/dL) 129 H 135 H (75-99) mg/dL Assessment and Plan Assessment: status post tripping and falling without syncope or presyncope Right hip fracture, status post closed reduction Postop acute blood loss anemia, rule out other sources. history of heart failure and coronary artery disease acute kidney injury on the top of chronic kidney disease stage III Memory impairment hyperlipidemia Type 2 diabetes mellitus Osteoarthritis COPD, not in acute exacerbation Plan: this is a pleasant 87 years old female who presents with a fall and right hip fracture. Patient is is been evaluated by orthopedic team, status post close reduction. Continue with pain medication. Cardiology and pulmonary team are following the patient as well as hematology team. She is high-risk for postop DVT therefore she needs to be started on anticoagulation once she is a stable. Labs and medication were reviewed.. Continue same treatment. Continue with symptomatic treatment. Resume home medication. Monitor lytes and vitals. pain management as per primary team. DVT prophylaxis as per primary team. DVT and GI prophylaxis. Further recommendations of the clinical course of the patient DVT prophylaxis: Mechanical and then with anticoagulation GI Prophylaxis: Pepcid PT/OT: Pending Prognosis is guarded thank you for consulting us.
[2018-02-28 17:32] LABS: Glucose,Whole Blood 132 mg/dL (75-99)
[2018-02-28] MEDS ORDERED: WARFARIN 2.5 MG TAB PO ONE (18:00)
[2018-02-28] MEDS ORDERED: Acetaminophen-Codeine 300-30mg TAB PO PRN ×2 (18:36)
[2018-02-28 20:04] LABS: Glucose,Whole Blood 144 mg/dL (75-99)
[2018-02-28] MEDS: SENNOSIDES-DOCUSATE SODIUM 1 EACH TAB PO SCH (20:43)
[2018-02-28] MEDS: ATORVASTATIN 20 MG TAB PO SCH (20:43)
[2018-03-01 07:11] LABS: Glucose,Whole Blood 113 mg/dL (75-99)
[2018-03-01] MEDS: INSULIN ASPART 100 UNIT/ML 1 ML 10 ML VIAL SQ SCH ×4 (07:22→20:38)
[2018-03-01 07:48] LABS: Anisocytosis Moderate; Basophils % (A) 0 %; Eosinophils % (A) 1 %; HCT 21.1 % (34.0-46.0); Lymphocytes # (A) 0.4 k/uL (1.0-4.8); Lymphocytes % (A) 10 %; MCH 37.3 pg (25.0-35.0); MCHC 33.1 g/dL (31.0-37.0); Macrocytosis Marked; Mean Platelet Volume 8.4; Monocytes # (A) 0.3 k/uL (0-1.0); Monocytes % (A) 6 %; Neutrophils # (A) 3.6 k/uL (1.3-7.7); Neutrophils % (A) 81 %; Platelet Count 123 k/uL (150-450); Poikilocytosis Slight; RBC 1.87 m/uL (3.80-5.40); WBC 4.5 k/uL (3.8-10.6)
[2018-03-01 07:55] LABS: Prothrombin Time 9.9 sec (9.0-12.0)
[2018-03-01 08:04] LABS: MCV 112.8 fL (80.0-100.0)
[2018-03-01] MEDS: IPRATROPIUM-ALBUTEROL 3 ML NEB INHALATION SCH ×4 (08:57→21:14)
[2018-03-01] MEDS: SYMBICORT 160-4.5 MCG INHALER INHALATION SCH ×2 (08:57→21:15)
[2018-03-01] MEDS: PANTOPRAZOLE 40 MG/10 ML VIAL IV SCH (09:11)
[2018-03-01] MEDS: LINAGLIPTIN 5 MG TABLET PO SCH (09:11)
[2018-03-01] MEDS: ALLOPURINOL 300 MG TAB PO SCH (09:11)
[2018-03-01] MEDS: FAMOTIDINE 20 MG/2 ML VIAL IV SCH (09:15)
[2018-03-01] MEDS: LACTATED RINGERS 1,000 ML IV SCH (09:16)
--- NOTE | 2018-03-01 11:25 | P.PN ---
Subjective Progress Note Date: 03/01/18 Principal diagnosis: Right hip fracture. Status post intertrochanteric nail insertion right hip. This is an 87-year-old female who is status post close reduction with insertion of intertrochanteric nail of the right hip. She is stable from an orthopedic standpoint. She seems a bit confused today. She has no new complaints or concerns today. Vital signs are stable. Objective - Vital Signs Vital signs: Vital Signs Temp 98.2 F 03/01/18 07:18 Pulse 72 03/01/18 07:18 Resp 22 03/01/18 07:18 BP 121/57 03/01/18 07:18 Pulse Ox 97 03/01/18 07:18 Intake & Output 02/28/18 03/01/18 03/01/18 18:59 06:59 18:59 Intake Total 800 725 Output Total 400 400 Balance 400 325 Intake: Intake, IV Titration 800 175 Amount Lactated Ringers 1,000 ml 800 175 @ 50 mls/hr IV .Q20H [facility] Rx#:[id number] Oral 240 Blood Product 0 310 Rc As-1 Unit 0 310 [id number] Output: Urine 400 400 Other: Voiding Method Indwelling Catheter Indwelling Catheter Indwelling Catheter - Exam This is a pleasant 87-year-old female in no acute distress. She is alert but slightly confused. Exam of the right hip reveals that her dressing is clean, dry and intact. She has full foot and ankle motion bilaterally. Pedal pulse is +2/4. Neurovascular status to the lower extremity is intact. - Labs CBC & Chem 7: 03/01/18 06:57 02/27/18 06:51 Labs: Abnormal Lab Results - Last 24 Hours (Table) 02/28/18 02/28/18 02/28/18 Range/Units 07:33 11:57 15:03 RBC 1.65 L (3.80-5.40) m/uL Hgb 6.6 L* (11.4-16.0) gm/dL Hct 20.1 L (34.0-46.0) % MCV 121.2 H (80.0-100.0) fL MCH 39.8 H (25.0-35.0) pg RDW 18.2 H (11.5-15.5) % Plt Count 116 L (150-450) k/uL Lymphocytes # (Manual) 0.30 L (1.0-4.8) k/uL Myelocytes # (Manual) 0.09 H (0) k/uL POC Glucose (mg/dL) 135 H (75-99) mg/dL Crossmatch See Detail 02/28/18 02/28/18 03/01/18 Range/Units 17:20 19:49 06:57 RBC 1.87 L (3.80-5.40) m/uL Hgb 7.0 L (11.4-16.0) gm/dL Hct 21.1 L (34.0-46.0) % MCV 112.8 H D (80.0-100.0) fL MCH 37.3 H (25.0-35.0) pg RDW 21.0 H (11.5-15.5) % Plt Count 123 L (150-450) k/uL Lymphocytes # (Manual) (1.0-4.8) k/uL Myelocytes # (Manual) (0) k/uL POC Glucose (mg/dL) 132 H 144 H (75-99) mg/dL Crossmatch 03/01/18 Range/Units 07:00 RBC (3.80-5.40) m/uL Hgb (11.4-16.0) gm/dL Hct (34.0-46.0) % MCV (80.0-100.0) fL MCH (25.0-35.0) pg RDW (11.5-15.5) % Plt Count (150-450) k/uL Lymphocytes # (Manual) (1.0-4.8) k/uL Myelocytes # (Manual) (0) k/uL POC Glucose (mg/dL) 113 H (75-99) mg/dL Crossmatch Assessment and Plan (1) Breast cancer metastasized to lung Current Visit: Yes Status: Acute Code(s): C50.919 - MALIGNANT NEOPLASM OF UNSP SITE OF UNSPECIFIED FEMALE BREAST SNOMED Code(s): 012057042 (2) Closed right hip fracture Current Visit: Yes Status: Acute Code(s): S72.001A - FRACTURE OF UNSP PART OF NECK OF RIGHT FEMUR, INIT SNOMED Code(s): 416999650 (3) Fall Current Visit: Yes Status: Acute Code(s): W19.XXXA - UNSPECIFIED FALL, INITIAL ENCOUNTER SNOMED Code(s): 1729522 Plan: The clinical findings are discussed with the patient. She is toe-touch weightbearing to the right lower extremity with walker. We are planning discharge to inpatient rehab Friday.
[2018-03-01 11:42] LABS: Polychromasia Present
[2018-03-01 11:59] LABS: Glucose,Whole Blood 105 mg/dL (75-99)
[2018-03-01] MEDS ORDERED: SENNOSIDES 8.6 MG TAB PO PRN (12:40)
--- NOTE | 2018-03-01 13:27 | PN ---
PROGRESS NOTE Mrs Earl is an 87-year-old female who has fell and underwent surgery on her hip. She is feeling well this morning. She is denying any chest pain. Her breathing has been stable. She was transfused yesterday. She has a history of congestive heart failure with preserved systolic function with severe pulmonary hypertension. She denies any dizziness or palpitations. She denies any nausea. She continues to be at this time on Lipitor 20 mg daily, Coumadin, Protonix, Tradjenta, insulin. PHYSICAL EXAMINATION: Blood pressure 121/50 with a heart rate in the 70s. LUNGS: Clear. HEART: Regular rate and rhythm, S1, S2. No S3 with a systolic murmur heard at the base. No diastolic murmur. No rub. ABDOMEN: Soft, nontender. Extremities: No significant edema. LAB DATA: Hemoglobin of 7.0 after transfusion. IMPRESSION: 1. Status post fall and hip fracture with intratrochanteric nail insertion. 2. History of breast cancer with metastasis. 3. Pulmonary hypertension. 4. Hyperlipidemia. 5. Anemia. RECOMMENDATIONS: From the cardiac standpoint, she is stable. We will continue present therapy. I would expect she will be transferred to rehab soon. We will see on as needed basis. Please feel free to call us for any questions. MMODL / IJN: [id number] /
[2018-03-01] MEDS: RIVAROXABAN 10 MG TAB PO SCH (15:43)
[2018-03-01 16:11] LABS: Anisocytosis Moderate; HCT 21.7 % (34.0-46.0); HGB 7.4 gm/dL (11.4-16.0); MCH 37.5 pg (25.0-35.0); MCHC 34.1 g/dL (31.0-37.0); MCV 109.7 fL (80.0-100.0); Macrocytosis Marked; Mean Platelet Volume 8.5; Platelet Count 131 k/uL (150-450); Poikilocytosis Slight; RBC 1.98 m/uL (3.80-5.40); RDW 20.1 % (11.5-15.5); WBC 5.2 k/uL (3.8-10.6)
[2018-03-01 16:22] LABS: Calcium 8.8 mg/dL (8.4-10.2)
[2018-03-01 16:44] LABS: Band Neutrophils % 1 %; Hypochromasia (M) Present; Lymphocytes # (M) 0.57 k/uL (1.0-4.8); Monocytes # (M) 0.31 k/uL (0-1.0); Neutrophils % (M) 80 %; Nucleated Red Blood Cells 0 /100 WBC (0-0); Polychromasia Present; Total Cells Counted 100
[2018-03-01] MEDS: FERROUS SULFATE 325 MG TAB PO SCH (16:56)
[2018-03-01 17:26] LABS: Glucose,Whole Blood 143 mg/dL (75-99)
[2018-03-01] MEDS ORDERED: WARFARIN 5 MG TAB PO ONE (18:00)
[2018-03-01 20:29] LABS: Glucose,Whole Blood 164 mg/dL (75-99)
[2018-03-01] MEDS: SENNOSIDES-DOCUSATE SODIUM 1 EACH TAB PO SCH (20:38)
[2018-03-01] MEDS: ATORVASTATIN 20 MG TAB PO SCH (20:38)
[2018-03-01 21:05] LABS: Appearance,Urine Clear (Clear); Bilirubin,Urine Negative (Negative); Blood,Urine Negative (Negative); Color,Urine Colorless; Glucose,Urine (UA) Negative (Negative); Ketones,Urine Negative (Negative); Leukocyte Esterase,Urine Negative (Negative); Nitrite,Urine Negative (Negative); Protein,Urine Negative (Negative); Specific Gravity,Urine 1.003 (1.001-1.035); Urobilinogen,Urine <2.0 mg/dL (<2.0)
--- NOTE | 2018-03-01 23:54 | P.PN ---
Subjective this is a pleasant 87 years old female with past medical history ofCOPD, coronary artery disease, congestive heart failure, diabetes mellitus, type II. GERD, hyperlipidemia, hypertension, memory impairment, osteoarthritis, chronic hypoxic respiratory failure on home oxygen, history of gout. Presents because after she fell, patient denies syncope/presyncope and no dizziness. She states that she lost control and tripped. She denies any trauma. However she has pain in the right hip area. X-ray shows right femoral fracture. Chest x-ray showing increased left lower lobe density.WBC3.4,hemoglobin 9.6. Sodium 133. Creatinineis slightly elevated at 1.5. 02/27/2018 Patient is seen and examined by me at bedside. Patient with no chest pain or dyspnea. She is been evaluated by both cardiology and pulmonary team and their input is appreciated. Patient is at increased but acceptable risk for surgery. She is going for closed reduction of her femoral fracture. The abnormalities seen and the chest x-ray most likely is likely to pleural effusion as per pulmonary team. 02/28/2018 Patient is status post intertrochanteric nail of the right hip. The area today is postop day #1. Patient looks pale. She is drowsy from pain medication. Sign at bedside. Patient does not look in distress. Her hemoglobin dropped to 6.6. One unit of blood transfusion is ordered, discussed with the patient and son at bedside risks, alternatives, and benefits are explained and they agreed for blood transfusion. Hematology team R following the case and their input is appreciated. They recommended anticoagulation for about 4 weeks as she is high- risk for postop DVT. However significant drop in hemoglobin her anticoagulation will be held today. As patient might be actively bleeding and she is given 1 units of blood transfusion. Son at bedside and explained to the patient and son that she's had has risk of bleeding and thrombosis. And they are agreeable with the plan 03/01/2018 Patient is status post intertrochanteric nail of the right hip. The area today is postop day #2. She is has better coloration today and she is feeling more comfortable with pain more controlled she denies chest pain or dyspnea and she is breathing comfortably. However she complains from some constipation which could be related to her pain medication. Vitas is stable. And hemoglobin went up from 6.6-7.0 after 1 unit of blood transfusion. Patient also was started on iron pills. Sugar is controlled. Cardiology following the case and think that is stable. As well as from orthopedic teams. Patient might benefit from discharge and to rehab Discharge planning and 24-48 hours Objective - Vital Signs Vital signs: Vital Signs Temp 98.2 F 03/01/18 07:18 Pulse 72 03/01/18 07:18 Resp 22 03/01/18 07:18 BP 121/57 03/01/18 07:18 Pulse Ox 97 03/01/18 07:18 Intake & Output 02/28/18 03/01/18 03/01/18 18:59 06:59 18:59 Intake Total 800 725 Output Total 400 400 800 Balance 400 325 -800 Intake: Intake, IV Titration 800 175 Amount Lactated Ringers 1,000 ml 800 175 @ 50 mls/hr IV .Q20H [facility] Rx#:[id number] Oral 240 Blood Product 0 310 Rc As-1 Unit 0 310 [id number] Output: Urine 400 400 800 Other: Voiding Method Indwelling Catheter Indwelling Catheter Indwelling Catheter - Exam GENERAL: The patient is alert and oriented x3, not in any acute distress. Well developed, well nourished. HEENT: Pupils are round and equally reacting to light. EOMI. No scleral icterus. No conjunctival pallor. Normocephalic, atraumatic. No pharyngeal erythema. No thyromegaly. CARDIOVASCULAR: S1 and S2 present. No murmurs, rubs, or gallops. PULMONARY: Chest is clear to auscultation, no wheezing or crackles. ABDOMEN: Soft, nontender, nondistended, normoactive bowel sounds. No palpable organomegaly. MUSCULOSKELETAL: No joint swelling or deformity. -EXTREMITIES: No cyanosis, clubbing, or pedal edema.right leg is shortened and externally rotated NEUROLOGICAL: Gross neurological examination did not reveal any focal deficits. SKIN: No rashes. - Labs CBC & Chem 7: 03/01/18 06:57 02/27/18 06:51 Labs: Abnormal Lab Results - Last 24 Hours (Table) 02/28/18 02/28/18 02/28/18 Range/Units 15:03 17:20 19:49 RBC (3.80-5.40) m/uL Hgb (11.4-16.0) gm/dL Hct (34.0-46.0) % MCV (80.0-100.0) fL MCH (25.0-35.0) pg RDW (11.5-15.5) % Plt Count (150-450) k/uL Lymphocytes # (1.0-4.8) k/uL POC Glucose (mg/dL) 132 H 144 H (75-99) mg/dL Crossmatch See Detail 03/01/18 03/01/18 03/01/18 Range/Units 06:57 07:00 11:45 RBC 1.87 L (3.80-5.40) m/uL Hgb 7.0 L (11.4-16.0) gm/dL Hct 21.1 L (34.0-46.0) % MCV 112.8 H D (80.0-100.0) fL MCH 37.3 H (25.0-35.0) pg RDW 21.0 H (11.5-15.5) % Plt Count 123 L (150-450) k/uL Lymphocytes # 0.4 L (1.0-4.8) k/uL POC Glucose (mg/dL) 113 H 105 H (75-99) mg/dL Crossmatch Assessment and Plan Assessment: status post tripping and falling without syncope or presyncope Right hip fracture, status post closed reduction Postop acute blood loss anemia, rule out other sources. history of heart failure and coronary artery disease acute kidney injury on the top of chronic kidney disease stage III Memory impairment hyperlipidemia Type 2 diabetes mellitus Osteoarthritis COPD, not in acute exacerbation Plan: this is a pleasant 87 years old female who presents with a fall and right hip fracture. Patient is is been evaluated by orthopedic team, status post close reduction. Continue with pain medication. Cardiology and pulmonary team are following the patient as well as hematology team. She is high-risk for postop DVT therefore she needs to be started on anticoagulation once she is a stable. Labs and medication were reviewed.. Continue same treatment. Continue with symptomatic treatment. Resume home medication. Monitor lytes and vitals. pain management as per primary team. DVT prophylaxis as per primary team. DVT and GI prophylaxis. Further recommendations of the clinical course of the patient DVT prophylaxis: Mechanical and then with anticoagulation GI Prophylaxis: Pepcid PT/OT: Pending Prognosis is guarded thank you for consulting us.
[2018-03-02] MEDS: LACTATED RINGERS 1,000 ML IV SCH (03:07)
[2018-03-02] MEDS: IPRATROPIUM-ALBUTEROL 3 ML NEB INHALATION SCH ×4 (07:09→19:39)
[2018-03-02] MEDS: SYMBICORT 160-4.5 MCG INHALER INHALATION SCH ×2 (07:13→19:39)
[2018-03-02 07:20] LABS: Glucose,Whole Blood 114 mg/dL (75-99)
[2018-03-02] MEDS: INSULIN ASPART 100 UNIT/ML 1 ML 10 ML VIAL SQ SCH ×4 (08:19→21:53)
[2018-03-02] MEDS: PANTOPRAZOLE 40 MG/10 ML VIAL IV SCH (08:24)
[2018-03-02] MEDS: FERROUS SULFATE 325 MG TAB PO SCH ×2 (08:24→17:47)
[2018-03-02] MEDS: ALLOPURINOL 300 MG TAB PO SCH (08:24)
[2018-03-02] MEDS: LINAGLIPTIN 5 MG TABLET PO SCH (08:24)
[2018-03-02] MEDS: RIVAROXABAN 10 MG TAB PO SCH (08:24)
[2018-03-02] MEDS ORDERED: Alendronate Sodium [Fosamax] 70 MG PO SCH (09:00)
[2018-03-02 09:38] LABS: INR 1.2 (<1.2); Prothrombin Time 11.2 sec (9.0-12.0)
[2018-03-02 09:46] LABS: Anisocytosis Moderate; Basophils % (A) 0 %; Eosinophils % (A) 1 %; Lymphocytes # (A) 0.5 k/uL (1.0-4.8); Lymphocytes % (A) 14 %; MCH 38.3 pg (25.0-35.0); MCV 112.9 fL (80.0-100.0); Macrocytosis Marked; Mean Platelet Volume 8.3; Monocytes # (A) 0.3 k/uL (0-1.0); Monocytes % (A) 8 %; Neutrophils # (A) 2.7 k/uL (1.3-7.7); Neutrophils % (A) 73 %; Platelet Count 140 k/uL (150-450); RBC 1.77 m/uL (3.80-5.40); RDW 20.8 % (11.5-15.5); WBC 3.7 k/uL (3.8-10.6)
[2018-03-02 09:50] LABS: HGB 6.8 gm/dL (11.4-16.0)
--- NOTE | 2018-03-02 10:28 | P.DS ---
Providers Date of admission: 02/25/18 22:54 Expected date of discharge: 03/02/18 Attending physician: Tramaine Conte Consults: 02/25/18 22:54 Consult Physician Stat Consulting Provider: Naila Fulton Consult Reason/Comments: Hip Fracture, Medical clearance Do you want consulting provider notified?: Yes Consult Physician Stat Consulting Provider: Tulio Best Consult Reason/Comments: Breast CA, Hip fracture Do you want consulting provider notified?: Yes 02/26/18 13:26 Consult Physician Routine Consulting Provider: [facility] Consult Reason/Comments: surgical clearance Do you want consulting provider notified?: Yes 02/26/18 16:46 Consult Physician Urgent Consulting Provider: Tina Astudillo Consult Reason/Comments: ABNORMAL CXR Do you want consulting provider notified?: Yes Primary care physician: Jamar Monge - Discharge Diagnosis(es) (1) Breast cancer metastasized to lung Current Visit: Yes Status: Acute (2) Closed right hip fracture Current Visit: Yes Status: Acute (3) Fall Current Visit: Yes Status: Acute Hospital Course: This is a 87-year-old female who is admitted to [facility] on 02/25/2018 after falling and sustaining injury to the right hip. On exam and x- ray in the emergency department she is found to have an intertrochanteric fracture of the right hip. She is admitted to our service for surgical intervention and care. Patient is taken to surgery for close reduction and insertion of intertrochanteric nail of the right hip. The procedure was performed without complication or sequelae. The patient is doing fairly well postoperatively. Vital signs and labs are stable on postoperative day #3. Patient is discharged to inpatient rehab in good condition. Please see med rec for accurate list of discharge medications. Patient Condition at Discharge: Stable Plan - Discharge Summary Discharge Rx Participant: Yes New Discharge Prescriptions: New Acetaminophen-Codeine 300-30mg [Tylenol w/codeine #3] 1 - 2 each PO Q6HR PRN #40 tab PRN Reason: Pain Warfarin [Coumadin] 1 mg PO DAILY #30 tab Sennosides-Docusate Sodium [Senokot-S] 1 tab PO BID #60 tablet No Action sitaGLIPtin [Januvia] 100 mg PO DAILY Omeprazole 20 mg PO DAILY Metolazone 2.5 mg PO Q48H Allopurinol 300 mg PO DAILY Albuterol Sulfate [Ventolin HFA] 2 puff INHALATION RT-Q6H PRN PRN Reason: Shortness Of Breath Nitroglycerin Sl Tabs [Nitrostat] 0.4 mg PO Q5M PRN PRN Reason: Angina Atorvastatin [Lipitor] 20 mg PO HS Alendronate Sodium [Fosamax] 70 mg PO MO Budesonide-Formot 160-4.5 Mcg [Symbicort 160-4.5 Mcg Inhaler] 2 puff INHALATION RT-BID puff Ipratropium-Albuterol Nebulize [Duoneb 0.5 mg-3 mg/3 ml Soln] 3 ml INHALATION RT-QID ampul.neb Furosemide [Lasix] 40 mg PO DAILY #1 tablet Palbociclib [Ibrance] 125 mg PO Q21D Naproxen Sodium [Aleve] 220 mg PO BID predniSONE See Taper PO DAILY #15 tab Discharge Medication List Albuterol Sulfate [Ventolin HFA] 2 puff INHALATION RT-Q6H PRN 04/21/15 [History] Allopurinol 300 mg PO DAILY 04/21/15 [History] Atorvastatin [Lipitor] 20 mg PO HS 04/21/15 [History] Metolazone 2.5 mg PO Q48H 04/21/15 [History] Nitroglycerin Sl Tabs [Nitrostat] 0.4 mg PO Q5M PRN 04/21/15 [History] Omeprazole 20 mg PO DAILY 04/21/15 [History] sitaGLIPtin [Januvia] 100 mg PO DAILY 04/21/15 [History] Alendronate Sodium [Fosamax] 70 mg PO MO 03/01/17 [History] Budesonide-Formot 160-4.5 Mcg [Symbicort 160-4.5 Mcg Inhaler] 2 puff INHALATION RT-BID puff 04/09/17 [Rx] Furosemide [Lasix] 40 mg PO DAILY #1 tablet 04/09/17 [Rx] Ipratropium-Albuterol Nebulize [Duoneb 0.5 mg-3 mg/3 ml Soln] 3 ml INHALATION RT -QID ampul.neb 04/09/17 [Rx] Naproxen Sodium [Aleve] 220 mg PO BID 02/19/18 [History] Palbociclib [Ibrance] 125 mg PO Q21D 02/19/18 [History] predniSONE See Taper PO DAILY #15 tab 02/22/18 [Rx] Acetaminophen-Codeine 300-30mg [Tylenol w/codeine #3] 1 - 2 each PO Q6HR PRN # 40 tab 03/01/18 [Rx] Sennosides-Docusate Sodium [Senokot-S] 1 tab PO BID #60 tablet 03/01/18 [Rx] Warfarin [Coumadin] 1 mg PO DAILY #30 tab 03/01/18 [Rx] Follow up Appointment(s)/Referral(s): Tulio Best MD [STAFF PHYSICIAN] - 2 Weeks Saleem Roldan MD [Primary Care Provider] - 1-2 days [facility], [NON-STAFF] - As Needed Tramaine Conte MD [STAFF PHYSICIAN] - 4 Weeks Activity/Diet/Wound Care/Special Instructions: Toe touch wt bearing w walker RLE. May shower if no drainage from incision. Discharge Disposition: TRANSFER TO SNF/ECF
[2018-03-02 12:07] LABS: Glucose,Whole Blood 113 mg/dL (75-99)
[2018-03-02 17:10] LABS: Glucose,Whole Blood 117 mg/dL (75-99)
--- NOTE | 2018-03-02 18:13 | P.PN ---
Subjective this is a pleasant 87 years old female with past medical history ofCOPD, coronary artery disease, congestive heart failure, diabetes mellitus, type II. GERD, hyperlipidemia, hypertension, memory impairment, osteoarthritis, chronic hypoxic respiratory failure on home oxygen, history of gout. Presents because after she fell, patient denies syncope/presyncope and no dizziness. She states that she lost control and tripped. She denies any trauma. However she has pain in the right hip area. X-ray shows right femoral fracture. Chest x-ray showing increased left lower lobe density.WBC3.4,hemoglobin 9.6. Sodium 133. Creatinineis slightly elevated at 1.5. 02/27/2018 Patient is seen and examined by me at bedside. Patient with no chest pain or dyspnea. She is been evaluated by both cardiology and pulmonary team and their input is appreciated. Patient is at increased but acceptable risk for surgery. She is going for closed reduction of her femoral fracture. The abnormalities seen and the chest x-ray most likely is likely to pleural effusion as per pulmonary team. 02/28/2018 Patient is status post intertrochanteric nail of the right hip. The area today is postop day #1. Patient looks pale. She is drowsy from pain medication. Sign at bedside. Patient does not look in distress. Her hemoglobin dropped to 6.6. One unit of blood transfusion is ordered, discussed with the patient and son at bedside risks, alternatives, and benefits are explained and they agreed for blood transfusion. Hematology team R following the case and their input is appreciated. They recommended anticoagulation for about 4 weeks as she is high- risk for postop DVT. However significant drop in hemoglobin her anticoagulation will be held today. As patient might be actively bleeding and she is given 1 units of blood transfusion. Son at bedside and explained to the patient and son that she's had has risk of bleeding and thrombosis. And they are agreeable with the plan 03/01/2018 Patient is status post intertrochanteric nail of the right hip. The area today is postop day #2. She is has better coloration today and she is feeling more comfortable with pain more controlled she denies chest pain or dyspnea and she is breathing comfortably. However she complains from some constipation which could be related to her pain medication. Vitas is stable. And hemoglobin went up from 6.6-7.0 after 1 unit of blood transfusion. Patient also was started on iron pills. Sugar is controlled. Cardiology following the case and think that is stable. As well as from orthopedic teams. Patient might benefit from discharge and to rehab pt was lying in bed complaining from pain at the surgical site, however she was not in distress, would is small and healing , no signs of bleeding , no swelling . pt denying chest pain or dyspnea for me, she has some constipation but passing gases. her labs shows Hb of 6.8, she got one unit of blood transfusion after she consented to it. vital remains stable, xeralto was held, i discussed the case with the heamtology team and they agree with plan, if Hb stable we may restart xeralto CONSTITUTIONAL: No fever, no malaise, no fatigue. HEENT: No recent visual problems or hearing problems. Denied any sore throat. CARDIOVASCULAR: No orthopnea, PND, no palpitations, no syncope. PULMONARY: No shortness of breath, no cough, no hemoptysis. GASTROINTESTINAL: No diarrhea, no nausea, no vomiting, no abdominal pain. Normoactive bowel sounds. NEUROLOGICAL: No headaches, no weakness, no numbness. HEMATOLOGICAL: Denies any bleeding or petechiae. GENITOURINARY: Denies any burning micturition, frequency, or urgency. MUSCULOSKELETAL/RHEUMATOLOGICAL: Denies any joint pain, swelling, or any muscle pain. ENDOCRINE: Denies any polyuria or polydipsia. medications were reviewed Objective - Vital Signs Vital signs: Vital Signs Temp 98.5 F 03/02/18 15:00 Pulse 78 03/02/18 16:59 Resp 16 03/02/18 15:00 BP 128/71 03/02/18 15:00 Pulse Ox 97 03/02/18 15:00 Intake & Output 03/01/18 03/02/18 03/02/18 18:59 06:59 18:59 Intake Total 240 480 0 Output Total 079 962 8492 Balance - Intake: Oral 240 480 Blood Product 0 Rc As-1 Unit 0 [id number] Output: Urine 149 628 3823 Uretheral (Bernabe) 575 Other: Voiding Method Indwelling Catheter Indwelling Catheter Indwelling Catheter - Exam GENERAL: The patient is alert and oriented x3, not in any acute distress. Well developed, well nourished. HEENT: Pupils are round and equally reacting to light. EOMI. No scleral icterus. No conjunctival pallor. Normocephalic, atraumatic. No pharyngeal erythema. No thyromegaly. CARDIOVASCULAR: S1 and S2 present. No murmurs, rubs, or gallops. PULMONARY: Chest is clear to auscultation, no wheezing or crackles. ABDOMEN: Soft, nontender, nondistended, normoactive bowel sounds. No palpable organomegaly. MUSCULOSKELETAL: No joint swelling or deformity. -EXTREMITIES: No cyanosis, clubbing, or pedal edema.right leg is shortened and externally rotated NEUROLOGICAL: Gross neurological examination did not reveal any focal deficits. SKIN: No rashes. - Labs CBC & Chem 7: 03/02/18 08:59 03/01/18 15:48 Labs: Abnormal Lab Results - Last 24 Hours (Table) 02/28/18 03/01/18 03/02/18 Range/Units 15:03 20:17 07:06 WBC (3.8-10.6) k/uL RBC (3.80-5.40) m/uL Hgb (11.4-16.0) gm/dL Hct (34.0-46.0) % MCV (80.0-100.0) fL MCH (25.0-35.0) pg RDW (11.5-15.5) % Plt Count (150-450) k/uL Lymphocytes # (1.0-4.8) k/uL INR (<1.2) POC Glucose (mg/dL) 164 H 114 H (75-99) mg/dL Crossmatch See Detail 03/02/18 03/02/18 03/02/18 Range/Units 08:59 08:59 11:37 WBC 3.7 L (3.8-10.6) k/uL RBC 1.77 L (3.80-5.40) m/uL Hgb 6.8 L* (11.4-16.0) gm/dL Hct 20.0 L (34.0-46.0) % MCV 112.9 H (80.0-100.0) fL MCH 38.3 H (25.0-35.0) pg RDW 20.8 H (11.5-15.5) % Plt Count 140 L (150-450) k/uL Lymphocytes # 0.5 L (1.0-4.8) k/uL INR 1.2 H (<1.2) POC Glucose (mg/dL) 113 H (75-99) mg/dL Crossmatch 03/02/18 Range/Units 16:53 WBC (3.8-10.6) k/uL RBC (3.80-5.40) m/uL Hgb (11.4-16.0) gm/dL Hct (34.0-46.0) % MCV (80.0-100.0) fL MCH (25.0-35.0) pg RDW (11.5-15.5) % Plt Count (150-450) k/uL Lymphocytes # (1.0-4.8) k/uL INR (<1.2) POC Glucose (mg/dL) 117 H (75-99) mg/dL Crossmatch Assessment and Plan Assessment: status post tripping and falling without syncope or presyncope Right hip fracture, status post closed reduction Postop acute blood loss anemia,s/p rbc transfusion. history of heart failure and coronary artery disease acute kidney injury on the top of chronic kidney disease stage III Memory impairment hyperlipidemia Type 2 diabetes mellitus Osteoarthritis COPD, not in acute exacerbation Plan: this is a pleasant 87 years old female who presents with a fall and right hip fracture. Patient is is been evaluated by orthopedic team, status post close reduction. Continue with pain medication. Cardiology and pulmonary team are following the patient as well as hematology team. She is high-risk for postop DVT therefore she needs to be started on anticoagulation once she is a stable. Labs and medication were reviewed.. Continue same treatment. Continue with symptomatic treatment. Resume home medication. Monitor lytes and vitals. pain management as per primary team. DVT prophylaxis as per primary team. DVT and GI prophylaxis. Further recommendations of the clinical course of the patient DVT prophylaxis: Mechanical and then with anticoagulation GI Prophylaxis: Pepcid PT/OT: Pending Prognosis is guarded thank you for consulting us.
[2018-03-02 20:07] LABS: Glucose,Whole Blood 157 mg/dL (75-99)
[2018-03-02] MEDS: ATORVASTATIN 20 MG TAB PO SCH (21:52)
[2018-03-02] MEDS: SENNOSIDES-DOCUSATE SODIUM 1 EACH TAB PO SCH (21:52)
[2018-03-03] MEDS: LACTATED RINGERS 1,000 ML IV SCH (03:39)
[2018-03-03 06:37] LABS: Anisocytosis Moderate; Basophils % (A) 0 %; Eosinophils # (A) 0.1 k/uL (0-0.7); Eosinophils % (A) 1 %; HGB 8.1 gm/dL (11.4-16.0); Lymphocytes # (A) 0.5 k/uL (1.0-4.8); Lymphocytes % (A) 12 %; MCH 37.2 pg (25.0-35.0); MCHC 33.8 g/dL (31.0-37.0); MCV 110.1 fL (80.0-100.0); Macrocytosis Marked; Mean Platelet Volume 9.3; Monocytes # (A) 0.3 k/uL (0-1.0); Monocytes % (A) 8 %; Neutrophils % (A) 76 %; Platelet Count 151 k/uL (150-450); Poikilocytosis Slight; RBC 2.18 m/uL (3.80-5.40); RDW 21.7 % (11.5-15.5)
[2018-03-03 07:10] LABS: Glucose,Whole Blood 111 mg/dL (75-99)
[2018-03-03 07:25] LABS: INR 1.1 (<1.2); Prothrombin Time 10.5 sec (9.0-12.0)
[2018-03-03] MEDS: INSULIN ASPART 100 UNIT/ML 1 ML 10 ML VIAL SQ SCH ×4 (07:42→20:50)
[2018-03-03] MEDS: PANTOPRAZOLE 40 MG/10 ML VIAL IV SCH (07:49)
[2018-03-03] MEDS: FERROUS SULFATE 325 MG TAB PO SCH ×2 (07:50→17:37)
[2018-03-03] MEDS: LINAGLIPTIN 5 MG TABLET PO SCH (07:50)
[2018-03-03] MEDS: ALLOPURINOL 300 MG TAB PO SCH (07:50)
--- NOTE | 2018-03-03 08:25 | P.PN ---
Progress Note - Text Progress Note Date: 03/03/18 This is an 87-year-old female whom we are following regarding her right intertrochanteric hip fracture. She is status post IT nail insertion of the right hip. Plan was for discharge to rehab yesterday, however, her hemoglobin was low. She is given 1 unit of blood yesterday. Her hemoglobin is 8.1 today. We are planning possible discharge to rehab today if cleared medically.
[2018-03-03] MEDS: IPRATROPIUM-ALBUTEROL 3 ML NEB INHALATION SCH ×4 (09:06→21:25)
[2018-03-03] MEDS: SYMBICORT 160-4.5 MCG INHALER INHALATION SCH ×2 (09:06→21:25)
[2018-03-03 11:23] LABS: Glucose,Whole Blood 118 mg/dL (75-99)
[2018-03-03 17:24] LABS: Glucose,Whole Blood 128 mg/dL (75-99)
--- NOTE | 2018-03-03 18:11 | P.PN ---
Subjective Progress Note Date: 03/03/18 Principal diagnosis: Metastatic Breast Cancer Son at bedside, Natalie is feeling better, denies any pain. She is ready to go to a rehab to rebuild strength, no acute events overnight. Her Xarelto was held secondary to drop in hemoglobin post operatively, no overt signs of bleeding noted. Hemoglobin 8.1 today after transfusion and will recheck in am. If no acute drop in hemoglobin rec to restart xarelto prophylaxis for one month post hip repair surgery, high risk for thrombosis post operatively, and no signs of bleeding, ok for rehab from oncology stand-point. Patient and son understand they will hold ibrance until re-evaluation after rehab. Objective - Vital Signs Vital signs: Vital Signs Temp 98.4 F 03/03/18 15:00 Pulse 82 03/03/18 16:44 Resp 18 03/03/18 15:00 BP 155/75 03/03/18 15:00 Pulse Ox 90 L 03/03/18 15:00 Intake & Output 03/02/18 03/03/18 03/03/18 18:59 06:59 18:59 Intake Total 310 780 880 Output Total 1000 1775 Balance -690 -995 880 Intake: Intake, IV Titration 400 Amount Lactated Ringers 1,000 ml 400 @ 50 mls/hr IV .Q20H [facility] Rx#:[id number] Oral 780 480 Blood Product 310 Rc As-1 Unit 310 [id number] Output: Urine 1000 1775 Other: Voiding Method Indwelling Catheter Indwelling Catheter Indwelling Catheter # Voids 3 - Exam Constitutional General appearance: Present: no acute distress - EENT ENT: Present: hearing grossly normal, normal oropharynx - Respiratory Respiratory: bilateral: diminished (Left base greater than right) - Cardiovascular Rhythm: regular Heart sounds: normal: S1, S2 - Gastrointestinal General gastrointestinal: Present: normal bowel sounds, soft - Integumentary Integumentary: Present: normal - Neurologic Neurologic: Present: CNII-XII intact - Musculoskeletal Musculoskeletal: Present: generalized weakness, strength equal bilaterally - Psychiatric Psychiatric Comment(s): Mildly confused - Labs CBC & Chem 7: 03/03/18 06:14 03/01/18 15:48 Labs: Abnormal Lab Results - Last 24 Hours (Table) 11/24/18 11/26/18 11/27/18 Range/Units 15:03 19:55 06:14 RBC 2.18 L (3.80-5.40) m/uL Hgb 8.1 L (11.4-16.0) gm/dL Hct 24.0 L (34.0-46.0) % MCV 110.1 H (80.0-100.0) fL MCH 37.2 H (25.0-35.0) pg RDW 21.7 H (11.5-15.5) % Lymphocytes # 0.5 L (1.0-4.8) k/uL POC Glucose (mg/dL) 157 H (75-99) mg/dL Crossmatch See Detail 03/03/18 03/03/18 03/03/18 Range/Units 06:57 11:12 17:12 RBC (3.80-5.40) m/uL Hgb (11.4-16.0) gm/dL Hct (34.0-46.0) % MCV (80.0-100.0) fL MCH (25.0-35.0) pg RDW (11.5-15.5) % Lymphocytes # (1.0-4.8) k/uL POC Glucose (mg/dL) 111 H 118 H 128 H (75-99) mg/dL Crossmatch Assessment and Plan Plan: (1) Closed right hip fracture Narrative/Plan: - Patient is status post surgery, which she appears to have tolerated well so far. Defer to orthopedics for postoperative care. - The patient is a high risk for postop DVT. Therefore she should be treated with anticoagulation, Although was recently held due to recent drop in hemoglobin, if stable in am and no acute drop rec to restart for 4 weeks at prophylaxis dose xarelto 10mg po daily Current Visit: Yes Status: Acute Code(s): S72.001A - FRACTURE OF UNSP PART OF NECK OF RIGHT FEMUR, INIT SNOMED Code(s): 076988982 (2) Bicytopenia Narrative/Plan: - Counts stable today, continue to monitor, re-evaluate CBC in am. Current Visit: No Status: Acute Priority: Medium Code(s): D75.89 - OTHER SPECIFIED DISEASES OF BLOOD AND BLOOD-FORMING ORGANS SNOMED Code(s): 649812221 (3) Breast cancer metastasized to lung Narrative/Plan: The patient will need to be off Ibrance, till she is healed up from her surgery. - Her next Faslodex is due in mid 03/24. - The patient is an ECF for rehab at the time, then this can be delayed. We would recommend follow-up in the office about 2-3 weeks post discharge. Current Visit: Yes Status: Acute Code(s): C50.919 - MALIGNANT NEOPLASM OF UNSP SITE OF UNSPECIFIED FEMALE BREAST SNOMED Code(s): 651834295 Plan from Onc Standpoint: Hemoglobin 8.1 today after transfusion and will recheck in am. If no acute drop in hemoglobin rec to restart xarelto prophylaxis for one month post hip repair surgery, high risk for thrombosis post operatively, and no signs of bleeding, ok for rehab from oncology stand-point. Patient and son understand they will hold ibrance until re-evaluation after rehab.
--- NOTE | 2018-03-03 20:33 | P.PN ---
Subjective this is a pleasant 87 years old female with past medical history ofCOPD, coronary artery disease, congestive heart failure, diabetes mellitus, type II. GERD, hyperlipidemia, hypertension, memory impairment, osteoarthritis, chronic hypoxic respiratory failure on home oxygen, history of gout. Presents because after she fell, patient denies syncope/presyncope and no dizziness. She states that she lost control and tripped. She denies any trauma. However she has pain in the right hip area. X-ray shows right femoral fracture. Chest x-ray showing increased left lower lobe density.WBC3.4,hemoglobin 9.6. Sodium 133. Creatinineis slightly elevated at 1.5. 02/27/2018 Patient is seen and examined by me at bedside. Patient with no chest pain or dyspnea. She is been evaluated by both cardiology and pulmonary team and their input is appreciated. Patient is at increased but acceptable risk for surgery. She is going for closed reduction of her femoral fracture. The abnormalities seen and the chest x-ray most likely is likely to pleural effusion as per pulmonary team. 02/28/2018 Patient is status post intertrochanteric nail of the right hip. The area today is postop day #1. Patient looks pale. She is drowsy from pain medication. Sign at bedside. Patient does not look in distress. Her hemoglobin dropped to 6.6. One unit of blood transfusion is ordered, discussed with the patient and son at bedside risks, alternatives, and benefits are explained and they agreed for blood transfusion. Hematology team R following the case and their input is appreciated. They recommended anticoagulation for about 4 weeks as she is high- risk for postop DVT. However significant drop in hemoglobin her anticoagulation will be held today. As patient might be actively bleeding and she is given 1 units of blood transfusion. Son at bedside and explained to the patient and son that she's had has risk of bleeding and thrombosis. And they are agreeable with the plan 03/01/2018 Patient is status post intertrochanteric nail of the right hip. The area today is postop day #2. She is has better coloration today and she is feeling more comfortable with pain more controlled she denies chest pain or dyspnea and she is breathing comfortably. However she complains from some constipation which could be related to her pain medication. Vitas is stable. And hemoglobin went up from 6.6-7.0 after 1 unit of blood transfusion. Patient also was started on iron pills. Sugar is controlled. Cardiology following the case and think that is stable. As well as from orthopedic teams. Patient might benefit from discharge and to rehab 03/02/18 pt was lying in bed complaining from pain at the surgical site, however she was not in distress, would is small and healing , no signs of bleeding , no swelling . pt denying chest pain or dyspnea for me, she has some constipation but passing gases. her labs shows Hb of 6.8, she got one unit of blood transfusion after she consented to it. vital remains stable, xeralto was held, i discussed the case with the heamtology team and they agree with plan, if Hb stable we may restart xeralto 03/03/18 pt was sitting in chair feeling better and starting to move her leg, no abd pain , no chest pain , no dyspnea, she is status one unit of blood transfusion and her hb went up to 8.0. oncology team recommended to start pt on xarelto for 4 wks, and we are going to mointor her Hb tomorrow . pt is possibly going to rehab. CONSTITUTIONAL: No fever, no malaise, no fatigue. HEENT: No recent visual problems or hearing problems. Denied any sore throat. CARDIOVASCULAR: No orthopnea, PND, no palpitations, no syncope. PULMONARY: No shortness of breath, no cough, no hemoptysis. GASTROINTESTINAL: No diarrhea, no nausea, no vomiting, no abdominal pain. Normoactive bowel sounds. NEUROLOGICAL: No headaches, no weakness, no numbness. HEMATOLOGICAL: Denies any bleeding or petechiae. GENITOURINARY: Denies any burning micturition, frequency, or urgency. MUSCULOSKELETAL/RHEUMATOLOGICAL: Denies any joint pain, swelling, or any muscle pain. ENDOCRINE: Denies any polyuria or polydipsia. medications were reviewed Objective - Vital Signs Vital signs: Vital Signs Temp 98.4 F 03/03/18 15:00 Pulse 82 03/03/18 16:44 Resp 18 03/03/18 15:00 BP 155/75 03/03/18 15:00 Pulse Ox 90 L 03/03/18 15:00 Intake & Output 03/03/18 03/03/18 03/04/18 06:59 18:59 06:59 Intake Total 780 880 Output Total 1775 Balance -995 880 Intake: Intake, IV Titration 400 Amount Lactated Ringers 1,000 ml 400 @ 50 mls/hr IV .Q20H [facility] Rx#:[id number] Oral 780 480 Output: Urine 1775 Other: Voiding Method Indwelling Catheter Indwelling Catheter # Voids 3 - Exam GENERAL: The patient is alert and oriented x3, not in any acute distress. Well developed, well nourished. HEENT: Pupils are round and equally reacting to light. EOMI. No scleral icterus. No conjunctival pallor. Normocephalic, atraumatic. No pharyngeal erythema. No thyromegaly. CARDIOVASCULAR: S1 and S2 present. No murmurs, rubs, or gallops. PULMONARY: Chest is clear to auscultation, no wheezing or crackles. ABDOMEN: Soft, nontender, nondistended, normoactive bowel sounds. No palpable organomegaly. MUSCULOSKELETAL: No joint swelling or deformity. -EXTREMITIES: No cyanosis, clubbing, or pedal edema.right leg is shortened and externally rotated NEUROLOGICAL: Gross neurological examination did not reveal any focal deficits. SKIN: No rashes. - Labs CBC & Chem 7: 03/03/18 06:14 03/01/18 15:48 Labs: Abnormal Lab Results - Last 24 Hours (Table) 02/28/18 03/03/18 03/03/18 Range/Units 15:03 06:14 06:57 RBC 2.18 L (3.80-5.40) m/uL Hgb 8.1 L (11.4-16.0) gm/dL Hct 24.0 L (34.0-46.0) % MCV 110.1 H (80.0-100.0) fL MCH 37.2 H (25.0-35.0) pg RDW 21.7 H (11.5-15.5) % Lymphocytes # 0.5 L (1.0-4.8) k/uL POC Glucose (mg/dL) 111 H (75-99) mg/dL Crossmatch See Detail 03/03/18 03/03/18 Range/Units 11:12 17:12 RBC (3.80-5.40) m/uL Hgb (11.4-16.0) gm/dL Hct (34.0-46.0) % MCV (80.0-100.0) fL MCH (25.0-35.0) pg RDW (11.5-15.5) % Lymphocytes # (1.0-4.8) k/uL POC Glucose (mg/dL) 118 H 128 H (75-99) mg/dL Crossmatch Assessment and Plan Assessment: status post tripping and falling without syncope or presyncope Right hip fracture, status post closed reduction Postop acute blood loss anemia,s/p rbc transfusion. history of heart failure and coronary artery disease acute kidney injury on the top of chronic kidney disease stage III Memory impairment hyperlipidemia Type 2 diabetes mellitus Osteoarthritis COPD, not in acute exacerbation Plan: this is a pleasant 87 years old female who presents with a fall and right hip fracture. Patient is is been evaluated by orthopedic team, status post close reduction. Continue with pain medication. Cardiology and pulmonary team are following the patient as well as hematology team. She is high-risk for postop DVT therefore she needs to be started on anticoagulation once she is a stable. Labs and medication were reviewed.. Continue same treatment. Continue with symptomatic treatment. Resume home medication. Monitor lytes and vitals. pain management as per primary team. DVT prophylaxis as per primary team. DVT and GI prophylaxis. Further recommendations of the clinical course of the patient DVT prophylaxis: Mechanical and then with anticoagulation GI Prophylaxis: Pepcid PT/OT: Pending Prognosis is guarded thank you for consulting us.
[2018-03-03 20:49] LABS: Glucose,Whole Blood 144 mg/dL (75-99)
[2018-03-03] MEDS: RIVAROXABAN 10 MG TAB PO SCH (20:50)
[2018-03-03] MEDS: SENNOSIDES-DOCUSATE SODIUM 1 EACH TAB PO SCH (20:50)
[2018-03-03] MEDS: ATORVASTATIN 20 MG TAB PO SCH (20:50)
[2018-03-03 20:55] VITALS: RESP 16
[2018-03-03] MEDS ORDERED: APIXABAN 2.5 MG TABLET PO SCH (21:00)
[2018-03-04] MEDS: LACTATED RINGERS 1,000 ML IV SCH (06:04)
[2018-03-04 07:03] LABS: Glucose,Whole Blood 99 mg/dL (75-99)
[2018-03-04] MEDS: INSULIN ASPART 100 UNIT/ML 1 ML 10 ML VIAL SQ SCH ×2 (07:15→11:57)
[2018-03-04] MEDS: SYMBICORT 160-4.5 MCG INHALER INHALATION SCH (07:33)
[2018-03-04] MEDS: IPRATROPIUM-ALBUTEROL 3 ML NEB INHALATION SCH ×2 (07:33→11:46)
[2018-03-04 07:44] VITALS: BP 111/66; TEMP 98.2
[2018-03-04] MEDS: LINAGLIPTIN 5 MG TABLET PO SCH (08:22)
[2018-03-04] MEDS: RIVAROXABAN 10 MG TAB PO SCH (08:22)
[2018-03-04] MEDS: PANTOPRAZOLE 40 MG/10 ML VIAL IV SCH (08:22)
[2018-03-04] MEDS: ALLOPURINOL 300 MG TAB PO SCH (08:22)
[2018-03-04] MEDS: FERROUS SULFATE 325 MG TAB PO SCH (08:22)
[2018-03-04 09:44] LABS: Anisocytosis Moderate; Basophils % (A) 1 %; Eosinophils # (A) 0.1 k/uL (0-0.7); Eosinophils % (A) 1 %; HCT 24.6 % (34.0-46.0); Hypochromasia Slight; Lymphocytes # (A) 0.5 k/uL (1.0-4.8); Lymphocytes % (A) 14 %; MCH 35.5 pg (25.0-35.0); MCHC 32.4 g/dL (31.0-37.0); MCV 109.6 fL (80.0-100.0); Macrocytosis Marked; Mean Platelet Volume 8.2; Monocytes # (A) 0.2 k/uL (0-1.0); Monocytes % (A) 7 %; Neutrophils # (A) 2.7 k/uL (1.3-7.7); Neutrophils % (A) 75 %; Platelet Count 169 k/uL (150-450); RBC 2.24 m/uL (3.80-5.40); RDW 21.2 % (11.5-15.5); WBC 3.6 k/uL (3.8-10.6)
--- NOTE | 2018-03-04 09:44 | P.PN ---
Subjective Progress Note Date: 03/04/18 Principal diagnosis: Right hip fracture. Status post intertrochanteric nail insertion right hip. This is an 87-year-old female who is status post close reduction with insertion of intertrochanteric nail of the right hip. She is stable from an orthopedic standpoint. Most recent hemoglobin is 8.1. She has no new complaints or concerns today. We're awaiting discharged to inpatient rehab. Objective - Vital Signs Vital signs: Vital Signs Temp 98.2 F 03/04/18 07:43 Pulse 80 03/04/18 07:47 Resp 16 03/04/18 07:43 BP 111/66 03/04/18 07:43 Pulse Ox 96 03/04/18 07:43 Intake & Output 03/03/18 03/04/18 03/04/18 18:59 06:59 18:59 Intake Total 880 830 Output Total 1450 Balance 880 -620 Intake: Intake, IV Titration 400 Amount Lactated Ringers 1,000 ml 400 @ 50 mls/hr IV .Q20H [facility] Rx#:[id number] Oral 480 830 Output: Urine 1450 Other: Voiding Method Indwelling Catheter # Voids 3 - Exam This is a pleasant 87-year-old female in no acute distress. She is lying comfortably in bed. Right hip dressings are clean dry and intact. She has full foot and ankle motion without difficulty or pain. Neurovascular status to the lower extremities is intact. - Labs CBC & Chem 7: 03/03/18 06:14 03/01/18 15:48 Labs: Abnormal Lab Results - Last 24 Hours (Table) 03/03/18 03/03/18 03/03/18 Range/Units 11:12 17:12 20:38 POC Glucose (mg/dL) 118 H 128 H 144 H (75-99) mg/dL Assessment and Plan (1) Breast cancer metastasized to lung Current Visit: Yes Status: Acute Code(s): C50.919 - MALIGNANT NEOPLASM OF UNSP SITE OF UNSPECIFIED FEMALE BREAST SNOMED Code(s): 721121481 (2) Closed right hip fracture Current Visit: Yes Status: Acute Code(s): S72.001A - FRACTURE OF UNSP PART OF NECK OF RIGHT FEMUR, INIT SNOMED Code(s): 347877017 (3) Fall Current Visit: Yes Status: Acute Code(s): W19.XXXA - UNSPECIFIED FALL, INITIAL ENCOUNTER SNOMED Code(s): 7553818 Plan: The clinical findings are discussed with the patient. She is toe-touch weightbearing to the right lower extremity with walker. We are planning discharge to inpatient rehab today.
[2018-03-04 10:22] LABS: Poikilocytosis (M) Present
[2018-03-04 11:51] LABS: Glucose,Whole Blood 126 mg/dL (75-99)
[2018-03-04 11:56] VITALS: PULSE 88
--- NOTE | 2018-03-04 14:40 | P.PN ---
Subjective this is a pleasant 87 years old female with past medical history ofCOPD, coronary artery disease, congestive heart failure, diabetes mellitus, type II. GERD, hyperlipidemia, hypertension, memory impairment, osteoarthritis, chronic hypoxic respiratory failure on home oxygen, history of gout. Presents because after she fell, patient denies syncope/presyncope and no dizziness. She states that she lost control and tripped. She denies any trauma. However she has pain in the right hip area. X-ray shows right femoral fracture. Chest x-ray showing increased left lower lobe density.WBC3.4,hemoglobin 9.6. Sodium 133. Creatinineis slightly elevated at 1.5. 02/27/2018 Patient is seen and examined by me at bedside. Patient with no chest pain or dyspnea. She is been evaluated by both cardiology and pulmonary team and their input is appreciated. Patient is at increased but acceptable risk for surgery. She is going for closed reduction of her femoral fracture. The abnormalities seen and the chest x-ray most likely is likely to pleural effusion as per pulmonary team. 02/28/2018 Patient is status post intertrochanteric nail of the right hip. The area today is postop day #1. Patient looks pale. She is drowsy from pain medication. Sign at bedside. Patient does not look in distress. Her hemoglobin dropped to 6.6. One unit of blood transfusion is ordered, discussed with the patient and son at bedside risks, alternatives, and benefits are explained and they agreed for blood transfusion. Hematology team R following the case and their input is appreciated. They recommended anticoagulation for about 4 weeks as she is high- risk for postop DVT. However significant drop in hemoglobin her anticoagulation will be held today. As patient might be actively bleeding and she is given 1 units of blood transfusion. Son at bedside and explained to the patient and son that she's had has risk of bleeding and thrombosis. And they are agreeable with the plan 03/01/2018 Patient is status post intertrochanteric nail of the right hip. The area today is postop day #2. She is has better coloration today and she is feeling more comfortable with pain more controlled she denies chest pain or dyspnea and she is breathing comfortably. However she complains from some constipation which could be related to her pain medication. Vitas is stable. And hemoglobin went up from 6.6-7.0 after 1 unit of blood transfusion. Patient also was started on iron pills. Sugar is controlled. Cardiology following the case and think that is stable. As well as from orthopedic teams. Patient might benefit from discharge and to rehab 03/02/18 pt was lying in bed complaining from pain at the surgical site, however she was not in distress, would is small and healing , no signs of bleeding , no swelling . pt denying chest pain or dyspnea for me, she has some constipation but passing gases. her labs shows Hb of 6.8, she got one unit of blood transfusion after she consented to it. vital remains stable, xeralto was held, i discussed the case with the heamtology team and they agree with plan, if Hb stable we may restart xeralto 03/03/18 pt was sitting in chair feeling better and starting to move her leg, no abd pain , no chest pain , no dyspnea, she is status one unit of blood transfusion and her hb went up to 8.0. oncology team recommended to start pt on xarelto for 4 wks, and we are going to mointor her Hb tomorrow . pt is possibly going to rehab. 03/04/2018 Patient is lying in bed comfortable smiling and she feels better. Denies any abdominal or chest pain. No dyspnea. She says she couldn't move her legs better and she is happy with that. No signs symptoms of bleeding. Patient coloration looks better than last few days when she was more pale. Patient is status post multiple blood transfusions and she was started on iron pills today her hemoglobin is stable at 8.0 after patient was started on Xarelto as per clinical specialist recommendation to be continued for at least 4 weeks. Patient looks his stable from the medical standpoint. And she to continue with her medication as directed. Discussed with the staff. Most likely patient will going to be discharged to rehab CONSTITUTIONAL: No fever, no malaise, no fatigue. HEENT: No recent visual problems or hearing problems. Denied any sore throat. CARDIOVASCULAR: No orthopnea, PND, no palpitations, no syncope. PULMONARY: No shortness of breath, no cough, no hemoptysis. GASTROINTESTINAL: No diarrhea, no nausea, no vomiting, no abdominal pain. Normoactive bowel sounds. NEUROLOGICAL: No headaches, no weakness, no numbness. HEMATOLOGICAL: Denies any bleeding or petechiae. GENITOURINARY: Denies any burning micturition, frequency, or urgency. MUSCULOSKELETAL/RHEUMATOLOGICAL: Denies any joint pain, swelling, or any muscle pain. ENDOCRINE: Denies any polyuria or polydipsia. medications were reviewed Objective - Vital Signs Vital signs: Vital Signs Temp 98.2 F 03/04/18 07:43 Pulse 88 03/04/18 11:55 Resp 16 03/04/18 08:00 BP 111/66 03/04/18 07:43 Pulse Ox 96 03/04/18 07:43 Intake & Output 03/03/18 03/04/18 03/04/18 18:59 06:59 18:59 Intake Total 880 830 Output Total 1450 Balance 880 -620 Intake: Intake, IV Titration 400 Amount Lactated Ringers 1,000 ml 400 @ 50 mls/hr IV .Q20H YAMILE Rx#:[id number] Oral 480 830 Output: Urine 1450 Other: Voiding Method Indwelling Catheter Indwelling Catheter # Voids 3 - Exam GENERAL: The patient is alert and oriented x3, not in any acute distress. Well developed, well nourished. HEENT: Pupils are round and equally reacting to light. EOMI. No scleral icterus. No conjunctival pallor. Normocephalic, atraumatic. No pharyngeal erythema. No thyromegaly. CARDIOVASCULAR: S1 and S2 present. No murmurs, rubs, or gallops. PULMONARY: Chest is clear to auscultation, no wheezing or crackles. ABDOMEN: Soft, nontender, nondistended, normoactive bowel sounds. No palpable organomegaly. MUSCULOSKELETAL: No joint swelling or deformity. -EXTREMITIES: No cyanosis, clubbing, or pedal edema.right leg is shortened and externally rotated NEUROLOGICAL: Gross neurological examination did not reveal any focal deficits. SKIN: No rashes. - Labs CBC & Chem 7: 03/04/18 07:56 03/01/18 15:48 Labs: Abnormal Lab Results - Last 24 Hours (Table) 03/03/18 03/03/18 03/04/18 Range/Units 17:12 20:38 07:56 WBC 3.6 L (3.8-10.6) k/uL RBC 2.24 L (3.80-5.40) m/uL Hgb 8.0 L (11.4-16.0) gm/dL Hct 24.6 L (34.0-46.0) % MCV 109.6 H (80.0-100.0) fL MCH 35.5 H (25.0-35.0) pg RDW 21.2 H (11.5-15.5) % Lymphocytes # 0.5 L (1.0-4.8) k/uL POC Glucose (mg/dL) 128 H 144 H (75-99) mg/dL 03/04/18 Range/Units 11:40 WBC (3.8-10.6) k/uL RBC (3.80-5.40) m/uL Hgb (11.4-16.0) gm/dL Hct (34.0-46.0) % MCV (80.0-100.0) fL MCH (25.0-35.0) pg RDW (11.5-15.5) % Lymphocytes # (1.0-4.8) k/uL POC Glucose (mg/dL) 126 H (75-99) mg/dL Assessment and Plan Assessment: status post tripping and falling without syncope or presyncope Right hip fracture, status post closed reduction Postop acute blood loss anemia,s/p rbc transfusion. history of heart failure and coronary artery disease acute kidney injury on the top of chronic kidney disease stage III Memory impairment hyperlipidemia Type 2 diabetes mellitus Osteoarthritis COPD, not in acute exacerbation Plan: this is a pleasant 87 years old female who presents with a fall and right hip fracture. Patient is is been evaluated by orthopedic team, status post close reduction. Continue with pain medication. Cardiology and pulmonary team are following the patient as well as hematology team. She is high-risk for postop DVT therefore she needs to be started on anticoagulation once she is a stable. Labs and medication were reviewed.. Continue same treatment. Continue with symptomatic treatment. Resume home medication. Monitor lytes and vitals. pain management as per primary team. DVT prophylaxis as per primary team. DVT and GI prophylaxis. Further recommendations of the clinical course of the patient DVT prophylaxis: Mechanical and then with anticoagulation GI Prophylaxis: Pepcid PT/OT: Pending Prognosis is guarded thank you for consulting us.
--- NOTE | 2018-03-18 09:46 | P.OP ---
Date of Procedure: 02/27/18 Procedure(s) Performed: PREOPERATIVE DIAGNOSIS: Right hip intertrochanteric fracture. POSTOPERATIVE DIAGNOSIS: Right hip intertrochanteric fracture. OPERATION: Right hip intertrochanteric fracture closed reduction and intramedullary nailing using Synthes IT nail. BORE MINER OPERATOR: Norma Rubio PA-C (Assistance with: Patient positioning, retraction, exposure, hemostasis, fixation, irrigation, closure, dressing) ANESTHESIA: General ESTIMATED BLOOD LOSS: 50 mL. COMPLICATIONS: None OPERATIVE FINDINGS: See dictation INDICATIONS: Mrs. Earl is an 87 year old female with a history of right intertrochanteric fracture. The patient presents to the operating room today for closed reduction and intramedullary nailing. I discussed the risks of surgery in detail as being inclusive of but not limited to: Bleeding, infection , scarring, discomfort, blood vessel and/or nerve damage, need for further surgery, malunion, nonunion, gait disturbance including persistent or permanent limp, limb length inequality, arthritis, hardware failure, blood clot, pulmonary embolism, , and other risks. The consent form has been signed. PROCEDURE: After appropriate consent was obtained, the patient was taken to the operating room and placed in supine position. [Spinal] anesthetic was administered and after confirmation of adequate anesthesia, the patient was carefully placed in the supine position on the operating room table in the fracture table. The patient was placed up against a well-padded peroneal post. Care was taken to make sure about that all pressure points were adequately padded. The affected leg was placed in boot traction and the unaffected leg was placed in a well leg sandy. Using gentle longitudinal distraction as well as adduction and internal rotation , the fracture was reduced as assessed by AP and lateral C-arm imaging. Once a satisfactory reduction had been obtained, the thigh was prepped and draped in the usual aseptic fashion using ChloraPrep. Ioban drape was used for the case and the patient received intravenous antibiotics prior to incision. Timeout was called, confirming patient identity, side, procedure, and administration of IV antibiotics. The incision was then created with a #10 blade just proximal to the greater trochanter laterally. It was carried down through skin into the subcutaneous tissues and through fascia. Hemostasis was obtained using electrocautery. The tip of the greater trochanter was palpated and a guide pin was placed at the tip and directed into the femoral shaft as assessed with C-arm imaging. Once optimal pin position had been obtained, a 17 mm reamer was used over the guide pin to create a path for the IT nail. IT nail selected was assembled to the insertion jig on the back table and bushings were checked for accuracy. The nail was then inserted using gentle mallet taps until it was fully deployed. The amount of rotation of the implant was assessed based on the amount of anteversion of the femoral neck. This was rotated to match the patient's femoral neck anteversion and the helical blade guide was placed through the insertion jig and through an incision on the lateral side of the thigh more distal than the first. Once this guide was placed against the lateral cortex of the femur, a guide pin was drilled into the central region of the femoral head and neck as based on AP and lateral C-arm imaging. Once optimal pin position had been obtained, the guidewire was measured and appropriately sized helical blade was selected. The path for the helical blade was prepared using a tapered reamer. The helical blade was then inserted using gentle mallet taps along the guidewire until it was fully deployed. There was no displacement of the fracture during this step. The anti-rotation screw was locked down and the insertion apparatus for the helical blade was removed. The guide pin was then removed. Traction was then removed from the leg and the distal interlock was placed through the jig using standard technique. Finally, the insertion jig for the nail was removed and final C-arm images were taken and saved in both AP and lateral planes. The final x-rays showed satisfactory positioning of the implant and good reduction of the fracture. The top of the nail was plugged with a small quantity of bone wax and the incisions were then thoroughly irrigated with normal saline. Final hemostasis was obtained using electrocautery and closure of the fascia was performed using 0-Vicryl suture. 2-0 Vicryl suture was used in the subcutaneous tissues and standard skin closure was performed. Sterile dressing was then applied and the patient was carefully removed from the fracture table frame and placed onto the stretcher. The patient tolerated the procedure well. There were no complications and above noted blood loss. The patient was then subsequently transferred to recovery room in stable condition. Sponge and needle counts were correct.
== END 2018-03-04 15:03 | DRG 481 ==
LOC: EC 20:37 → 4SSUR 22:54
PROVIDERS: ADMIT Orthopaedic Surgery; ATTEND Orthopaedic Surgery
PROC: 0QS636Z Reposition Right Upper Femur with Intramedullary Internal Fixation Device, Percutaneous Approach (ICD-10-PCS; principal; 2018-02-27 07:30)
PROC: 30233N1 Transfusion of Nonautologous Red Blood Cells into Peripheral Vein, Percutaneous Approach (ICD-10-PCS; 2018-02-28)
DX: S72.141A Displaced intertrochanteric fracture of right femur, initial encounter for closed fracture (principal); C78.00 Secondary malignant neoplasm of unspecified lung; I13.0 Hypertensive heart and chronic kidney disease with heart failure and stage 1 through stage 4 chronic kidney disease, or unspecified chronic kidney disease; I50.22 Chronic systolic (congestive) heart failure; N17.9 Acute kidney failure, unspecified; J96.11 Chronic respiratory failure with hypoxia; D62 Acute posthemorrhagic anemia; Y92.009 Unspecified place in unspecified non-institutional (private) residence as the place of occurrence of the external cause; W01.0XXA Fall on same level from slipping, tripping and stumbling without subsequent striking against object, initial encounter; M19.90 Unspecified osteoarthritis, unspecified site; K21.9 Gastro-esophageal reflux disease without esophagitis; G47.33 Obstructive sleep apnea (adult) (pediatric); E78.5 Hyperlipidemia, unspecified; E11.22 Type 2 diabetes mellitus with diabetic chronic kidney disease; I25.10 Atherosclerotic heart disease of native coronary artery without angina pectoris; D63.1 Anemia in chronic kidney disease; N18.3 Chronic kidney disease, stage 3 (moderate); K59.00 Constipation, unspecified; R29.6 Repeated falls; Z17.0 Estrogen receptor positive status [ER+]; Z79.51 Long term (current) use of inhaled steroids; Z79.83 Long term (current) use of bisphosphonates; Z79.899 Other long term (current) drug therapy; Z80.3 Family history of malignant neoplasm of breast; Z87.11 Personal history of peptic ulcer disease; Z87.891 Personal history of nicotine dependence; Z90.12 Acquired absence of left breast and nipple; Z90.710 Acquired absence of both cervix and uterus; Z96.653 Presence of artificial knee joint, bilateral; Z99.81 Dependence on supplemental oxygen; M10.9 Gout, unspecified; Z90.49 Acquired absence of other specified parts of digestive tract; J44.9 Chronic obstructive pulmonary disease, unspecified; R41.3 Other amnesia; Z79.84 Long term (current) use of oral hypoglycemic drugs; Z79.1 Long term (current) use of non-steroidal anti-inflammatories (NSAID); Z88.0 Allergy status to penicillin; R26.9 Unspecified abnormalities of gait and mobility; T45.1X5A Adverse effect of antineoplastic and immunosuppressive drugs, initial encounter; C50.912 Malignant neoplasm of unspecified site of left female breast; I27.20 Pulmonary hypertension, unspecified; Z79.818 Long term (current) use of other agents affecting estrogen receptors and estrogen levels; M81.0 Age-related osteoporosis without current pathological fracture; E27.9 Disorder of adrenal gland, unspecified; I07.1 Rheumatic tricuspid insufficiency; D72.819 Decreased white blood cell count, unspecified; R41.0 Disorientation, unspecified; T39.95XA Adverse effect of unspecified nonopioid analgesic, antipyretic and antirheumatic, initial encounter
CPT/HCPCS: 36415; 51702; 71045; 73502; 80048; 81003; 83036; 85025; 85610; 85730; 86850; 86900; 86901; 86920; 93306; 94640; 96361; 96374; 99285

== ENCOUNTER 2018-04-11 23:30 | Emergency (ER) | payer MEDICARE ==
[2018-04-11 23:36] VITALS: RESP 16; TEMP 98
[2018-04-11] MEDS ORDERED: ZIPRASIDONE 20 MG VIAL IM STA (23:39)
[2018-04-12 01:31] LABS: ALT 30 U/L (9-52); AST 34 U/L (14-36); Albumin 3.9 g/dL (3.5-5.0); Alcohol <10 mg/dL; Alkaline Phosphatase 118 U/L (38-126); Blood Urea Nitrogen 69 mg/dL (7-17); Calcium 9.3 mg/dL (8.4-10.2); Chloride 78 mmol/L (98-107); Glucose 130 mg/dL (74-99); Potassium 3.7 mmol/L (3.5-5.1); Sodium 128 mmol/L (137-145); Total Bilirubin 1.1 mg/dL (0.2-1.3); Total Protein 6.6 g/dL (6.3-8.2)
[2018-04-12 01:37] LABS: Anion Gap 12 mmol/L
[2018-04-12 01:38] LABS: Anisocytosis Slight; Basophils % (A) 0 %; Eosinophils # (A) 0.1 k/uL (0-0.7); Eosinophils % (A) 2 %; HCT 35.8 % (34.0-46.0); HGB 11.6 gm/dL (11.4-16.0); Lymphocytes # (A) 0.8 k/uL (1.0-4.8); Lymphocytes % (A) 19 %; MCH 33.2 pg (25.0-35.0); MCHC 32.3 g/dL (31.0-37.0); MCV 102.9 fL (80.0-100.0); Macrocytosis Moderate; Mean Platelet Volume 8.3; Monocytes # (A) 0.1 k/uL (0-1.0); Monocytes % (A) 2 %; Neutrophils # (A) 3.2 k/uL (1.3-7.7); Neutrophils % (A) 77 %; RBC 3.48 m/uL (3.80-5.40); WBC 4.2 k/uL (3.8-10.6)
[2018-04-12 01:39] LABS: Platelet Count 109 k/uL (150-450)
[2018-04-12 01:47] LABS: Carbon Dioxide 38 mmol/L (22-30)
[2018-04-12 02:08] LABS: Appearance,Urine Clear (Clear); Bacteria,Urine Moderate /hpf; Bilirubin,Urine Negative (Negative); Blood,Urine Negative (Negative); Color,Urine Yellow; Glucose,Urine (UA) Negative (Negative); Hyaline Casts,Urine 12 /lpf (0-2); Ketones,Urine Negative (Negative); Leukocyte Esterase,Urine Moderate (Negative); Nitrite,Urine Negative (Negative); Protein,Urine Negative (Negative); RBC,Urine <1 /hpf (0-5); Specific Gravity,Urine 1.008 (1.001-1.035); Urobilinogen,Urine <2.0 mg/dL (<2.0); WBC,Urine 6 /hpf (0-5)
[2018-04-12 02:17] LABS: Amphetamine Screen,Urine Not Detected (NotDetected); Barbiturate Screen,Urine Not Detected (NotDetected); Benzodiazepines Screen,Urine Not Detected (NotDetected); Cocaine Screen,Urine Not Detected (NotDetected); Methadone Screen, Urine Not Detected (NotDetected); Opiate Screen,Urine Detected (NotDetected); Oxycodone Screen, Urine Not Detected (NotDetected); Phencyclidine Screen,Urine Not Detected (NotDetected); Tricyclic Antidepressant,Urine Not Detected (NotDetected); Urn Cannabinoid Scrn Not Detected (NotDetected)
[2018-04-12] MEDS ORDERED: SODIUM CHLORIDE 0.9% 1,000 ML IV ONE (03:01)
[2018-04-12 03:27] VITALS: PULSE 54
--- NOTE | 2018-04-12 05:05 | ED ---
General Adult HPI - General Chief complaint: Psychiatric Symptoms Stated complaint: Altered Mental Status Time Seen by Provider: 04/11/18 23:39 Source: patient, EMS Mode of arrival: EMS Limitations: no limitations - History of Present Illness Initial comments: Natalie is an 87-year-old female is brought to the ED today via EMS for evaluation of agitation. Per EMS they were called because the patient was agitated and yelling at her son. She was telling her son she been talking to her sister who the son reports was not there. He reports that he was unable to calm her down and after approximately an hour for just being agitated he brought her to the ER for evaluation. Have a fractured hip which was repaired surgically last month. He does have a small bedsore to the son is been tending to. He reports she has been eating and drinking well. Upon arrival the patient is somewhat agitated but is easily calm and cooperative. She states that she's been "spazzing out" is awake alert oriented aware of all events prior to arrival. She admits that she was very agitated and screaming. She states that she was just upset but she doesn't know why. - Related Data Home Medications Medication Instructions Recorded Confirmed Albuterol Sulfate [Ventolin HFA] 2 puff INHALATION RT-Q6H PRN 04/21/15 02/25/18 Allopurinol 300 mg PO DAILY 04/21/15 02/25/18 Atorvastatin [Lipitor] 20 mg PO HS 04/21/15 02/25/18 Metolazone 2.5 mg PO Q48H 04/21/15 02/25/18 Nitroglycerin Sl Tabs [Nitrostat] 0.4 mg PO Q5M PRN 04/21/15 02/25/18 Omeprazole 20 mg PO DAILY 04/21/15 02/25/18 sitaGLIPtin [Januvia] 100 mg PO DAILY 04/21/15 02/25/18 Alendronate Sodium [Fosamax] 70 mg PO MO 03/01/17 02/25/18 Naproxen Sodium [Aleve] 220 mg PO BID 02/19/18 02/25/18 Palbociclib [Ibrance] 125 mg PO Q21D 02/19/18 02/25/18 Previous Rx's Medication Instructions Recorded Budesonide-Formot 160-4.5 Mcg 2 puff INHALATION RT-BID puff 04/09/17 [Symbicort 160-4.5 Mcg Inhaler] Furosemide [Lasix] 40 mg PO DAILY #1 tablet 04/09/17 Ipratropium-Albuterol Nebulize 3 ml INHALATION RT-QID ampul.neb 04/09/17 [Duoneb 0.5 mg-3 mg/3 ml Soln] predniSONE See Taper PO DAILY #15 tab 02/22/18 Acetaminophen-Codeine 300-30mg 1 - 2 each PO Q6HR PRN #40 tab 03/01/18 [Tylenol w/codeine #3] Sennosides-Docusate Sodium 1 tab PO BID #60 tablet 03/01/18 [Senokot-S] Warfarin [Coumadin] 1 mg PO DAILY #30 tab 03/01/18 LORazepam [Ativan] 0.5 mg PO HS 3 Days #3 tab 04/12/18 Allergies Allergy/AdvReac Type Severity Reaction Status Date / Time Penicillins Allergy Rash/Hives Verified 02/27/18 12:14 Review of Systems ROS Statement: Those systems with pertinent positive or pertinent negative responses have been documented in the HPI. ROS Other: All systems not noted in ROS Statement are negative. Past Medical History Past Medical History: Cancer, Chest Pain / Angina, Heart Failure, COPD, Diabetes Mellitus, GERD/Reflux, Hyperlipidemia, Hypertension, Memory Impairment , Osteoarthritis (OA), Respiratory Disorder, Sleep Apnea/CPAP/BIPAP Additional Past Medical History / Comment(s): O2 3 liters atc, GOUT, past hx of hemoptysis-LUNG CANCER, lt BREAST CA, osteoporosis,short term memory problems, past peptic ulcer disease, murmur. fell after thanksgiving -fx rt arm currently it's casteD. RIGHT PLEURAL EFFUSION. History of Any Multi-Drug Resistant Organisms: None Reported Past Surgical History: Section, Cholecystectomy, Hysterectomy, Joint Replacement, Tonsillectomy Additional Past Surgical History / Comment(s): LT BREAST BX,MASTECTOMY LEFT SIDE , JAMEL KNEE REPLACEMENT,several BRONCHOSCOPIES,PAST LAP BAND, EGD/COLONOSCOPY. RIGHT THORACENTESIS. Past Anesthesia/Blood Transfusion Reactions: No Reported Reaction Past Psychological History: No Psychological Hx Reported Smoking Status: Former smoker Past Alcohol Use History: None Reported Past Drug Use History: None Reported - Past Family History Mother Family Medical History: Cancer Additional Family Medical History / Comment(s): BREAST CANCER Father Family Medical History: No Reported History Additional Family Medical History / Comment(s): PT STATED HER DAD NEVER WENT TO . LIVED TILL HE WAS 98 YEARS OLD General Exam - General Exam Comments Initial Comments: Physical Exam GENERAL: Patient is well-developed and well-nourished. Patient is somewhat agitated but easily redirected and called HENT: Normocephalic, Atraumatic. EYES: PERRL, EOMI PULMONARY: Unlabored respirations. No audible rales rhonchi or wheezing was noted. CARDIOVASCULAR: There is a regular rate and rhythm without any murmurs gallops or rubs. ABDOMEN: Soft and nontender with normal bowel sounds. SKIN: sacral decubitus : Deferred NEUROLOGIC: Patient is alert and oriented x3. Moving all extremities spontaneously MUSCULOSKELETAL: Decreased range of motion right lower extremity secondary to hip fracture PSYCHIATRIC: Anxious and agitated but redirectable Denies hallucinations, suicidal or homicidal ideations Limitations: no limitations Limitations: no limitations Course Vital Signs 04/11/18 04/12/18 04/12/18 23:32 00:54 03:25 Temperature 98.0 F Pulse Rate 53 L 53 L 54 L Respiratory 16 16 16 Rate Blood Pressure 118/62 106/71 O2 Sat by Pulse 98 98 100 Oximetry Medical Decision Making - Medical Decision Making Patient was seen and evaluated history is obtained from the patient and son as well as EMS Patient presenting with agitation though the patient is awake alert oriented able to state that she was agitated denying any complaints Patient is agitated repeatedly screaming out for someone to help her. When someone comes to bedside she states she just wanted company. She denies any complaints. Labs were obtained, patient has mild hyponatremia at acute kidney injury. IV fluid rehydration was ordered. Patient remained calm and cooperative throughout her ED stay. Results were discussed with the son who expresses understanding. Patient is uncomfortable from laying on the hospital bed they would like to be discharged home. I advised to continue by mouth intake and rehydration. Expressed understanding. I will provide the son with 3 doses of 0.5 mg Ativan as I suspect the patient may be having some sundowning causing her agitation evening. - Lab Data Result diagrams: 04/12/18 01:05 04/12/18 01:05 Lab Results 04/12/18 04/12/18 04/12/18 Range/Units 01:05 01:05 01:53 WBC 4.2 (3.8-10.6) k/uL RBC 3.48 L (3.80-5.40) m/uL Hgb 11.6 (11.4-16.0) gm/dL Hct 35.8 (34.0-46.0) % MCV 102.9 H (80.0-100.0) fL MCH 33.2 (25.0-35.0) pg MCHC 32.3 (31.0-37.0) g/dL RDW 18.0 H (11.5-15.5) % Plt Count 109 L D (150-450) k/uL Neutrophils % 77 % Lymphocytes % 19 % Monocytes % 2 % Eosinophils % 2 % Basophils % 0 % Neutrophils # 3.2 (1.3-7.7) k/uL Lymphocytes # 0.8 L (1.0-4.8) k/uL Monocytes # 0.1 (0-1.0) k/uL Eosinophils # 0.1 (0-0.7) k/uL Basophils # 0.0 (0-0.2) k/uL Anisocytosis Slight Macrocytosis Moderate Sodium 128 L (137-145) mmol/L Potassium 3.7 (3.5-5.1) mmol/L Chloride 78 L (98-107) mmol/L Carbon Dioxide 38 H (22-30) mmol/L Anion Gap 12 mmol/L BUN 69 H (7-17) mg/dL Creatinine 1.54 H (0.52-1.04) mg/dL Est GFR (CKD-EPI)AfAm 35 (>60 ml/min/1.73 sqM) Est GFR (CKD-EPI)NonAf 31 (>60 ml/min/1.73 sqM) Glucose 130 H (74-99) mg/dL Calcium 9.3 (8.4-10.2) mg/dL Total Bilirubin 1.1 (0.2-1.3) mg/dL AST 34 (14-36) U/L ALT 30 (9-52) U/L Alkaline Phosphatase 118 (38-126) U/L Total Protein 6.6 (6.3-8.2) g/dL Albumin 3.9 (3.5-5.0) g/dL TSH 2.320 (0.465-4.680) mIU/L Urine Color Yellow Urine Appearance Clear (Clear) Urine pH 5.0 (5.0-8.0) Ur Specific [place] 1.008 (1.001-1.035) Urine Protein Negative (Negative) Urine Glucose (UA) Negative (Negative) Urine Ketones Negative (Negative) Urine Blood Negative (Negative) Urine Nitrite Negative (Negative) Urine Bilirubin Negative (Negative) Urine Urobilinogen <2.0 (<2.0) mg/dL Ur Leukocyte Esterase Moderate H (Negative) Urine RBC <1 (0-5) /hpf Urine WBC 6 H (0-5) /hpf Urine Bacteria Moderate H (None) /hpf Hyaline Casts 12 H (0-2) /lpf Urine Opiates Screen Detected H (NotDetected) Ur Oxycodone Screen Not Detected (NotDetected) Urine Methadone Screen Not Detected (NotDetected) Ur Propoxyphene Screen Not Detected (NotDetected) Ur Barbiturates Screen Not Detected (NotDetected) U Tricyclic Antidepress Not Detected (NotDetected) Ur Phencyclidine Scrn Not Detected (NotDetected) Ur Amphetamines Screen Not Detected (NotDetected) U Methamphetamines Scrn Not Detected (NotDetected) U Benzodiazepines Scrn Not Detected (NotDetected) Urine Cocaine Screen Not Detected (NotDetected) U Marijuana (THC) Screen Not Detected (NotDetected) Serum Alcohol <10 mg/dL Disposition Clinical Impression: Agitation Disposition: HOME SELF-CARE Condition: Good Instructions: Dementia (ED) Is patient prescribed a controlled substance at d/c from ED?: No Referrals: Saleem Roldan MD [Primary Care Provider] - 1-2 days
[2018-04-12 05:17] VITALS: BP 119/60
== END 2018-04-12 06:28 | disposition home or self-care (01) ==
LOC: EC 23:30
DX: R45.1 Restlessness and agitation (principal); E87.1 Hypo-osmolality and hyponatremia; N17.9 Acute kidney failure, unspecified; L89.159 Pressure ulcer of sacral region, unspecified stage; J44.9 Chronic obstructive pulmonary disease, unspecified; E78.5 Hyperlipidemia, unspecified; I11.0 Hypertensive heart disease with heart failure; I50.9 Heart failure, unspecified; K21.9 Gastro-esophageal reflux disease without esophagitis; M19.90 Unspecified osteoarthritis, unspecified site; M10.9 Gout, unspecified; E11.9 Type 2 diabetes mellitus without complications; M81.0 Age-related osteoporosis without current pathological fracture; G47.30 Sleep apnea, unspecified; Z87.81 Personal history of (healed) traumatic fracture; Z87.891 Personal history of nicotine dependence; Z88.0 Allergy status to penicillin; Z79.1 Long term (current) use of non-steroidal anti-inflammatories (NSAID); Z79.84 Long term (current) use of oral hypoglycemic drugs; Z79.899 Other long term (current) drug therapy; Z85.118 Personal history of other malignant neoplasm of bronchus and lung; Z85.3 Personal history of malignant neoplasm of breast; Z87.11 Personal history of peptic ulcer disease; Z87.09 Personal history of other diseases of the respiratory system; Z90.12 Acquired absence of left breast and nipple; Z96.653 Presence of artificial knee joint, bilateral; Z98.890 Other specified postprocedural states; Z99.81 Dependence on supplemental oxygen; Z99.89 Dependence on other enabling machines and devices
CPT/HCPCS: 99285 ×2; 96360 ×2; 96372 ×2; 82075; 36415; 80053; 84443; 85025; 81001; 80306; G0480; J3486; 80320